=== PATIENT | female | born 1930 | race Caucasian/White ===

== ENCOUNTER 2016-12-25 16:07 | Inpatient (IN) | payer MEDICARE, OTHER ==
[~2016-12-25] VITALS: Ht 160 cm; Wt 68.0 kg
[~2016-12-25 16:07] MED LIST: ACETAMINOPHEN-1 EACH ORAL; ACETAMINOPHEN325 M1 ORAL; AMIODARONE HCL400 M1 ORAL; AMLODIPINE BES2.5 MG ORAL; ANTIVERT12.5 MG ORAL; ASPIRIN EC81 MG ORAL; Alprazolam PO; BACITRACIN15 GM TOPIC; CLONIDINE HCL0.1 MG PO; COUMADIN2 MG ORAL; CYCLOBENZAPRINE10 MG ORAL; DOCUSATE SODIU100 MG ORAL; LASIX40 MG ORAL; LEXAPRO10 MG ORAL; LISINOPRIL20 MG ORAL; LISINOPRIL40 MG ORAL; METOPROLOL SUCC50 MG ORAL; MONTELUKAST SOD10 MG ORAL; NORVASC5 MG ORAL; PEPCID20 MG ORAL; POTASSIUM CHLO10 ME3 ORAL; PRAVACHOL80 MG ORAL; PREDNISONE20 MG ORAL; PRESERVISION A1 EACH PO; PROTONIX40 MG ORAL; RANITIDINE HCL150 MG ORAL; SYSTANE 0.3-0.1 EAC1 OP; TRAMADOL HCL50 MG ORAL; TYLENOL325 MG ORAL; Warfarin Sod PO; XANAX0.25 MG ORAL; ZANTAC150 MG ORAL; diclofenac TOPIC
[2016-12-25 16:12] VITALS: BP 160/38
--- NOTE | 2016-12-25 16:21 | Emergency Room Report ---
History of Present Illness General Chief Complaint: Upper Respiratory Illness Source: Patient, EMS Present Illness HPI Patient reports a fall approximately 6 weeks ago with a fracture of the left upper arm Says that she has had increased problems with her CHF She had recent thoracentesis at [facility] She was in rehabilitation And was home for the last few days now the patient again is having increased shortness of breath Increased cough Denies any recent travel denies any vomiting or diarrhea Patient has increased swelling in both legs Allergies: Coded Allergies: No Known Allergies (Unverified , 04/27/14) Patient History Past Medical History: see triage record Pertinent Family History: none Reviewed Nursing Documentation: PMH: Agreed, PSxH: Agreed Nursing Documentation-PMH Past Medical History: No History, Except For Hx Cardiac Problems: Yes - CHF Hx Hypertension: Yes Hx Pacemaker: Yes - Left chest Hx Cancer: No Hx Gastrointestinal Problems: Yes - gerd Hx Neurological Problems: Yes - vertigo Hx Vertigo: Yes Review of Systems All Other Systems: negative except mentioned in HPI Physical Exam Vital Signs Date Time Temp Pulse Resp B/P (MAP) Pulse Ox O2 Delivery O2 Flow Rate FiO2 12/25/16 16:02 62 20 162/73 96 Room Air Sp02 EP Interpretation: reviewed, normal General Appearance: well appearing, no apparent distress Head: normocephalic, atraumatic Eyes: bilateral eye PERRL, bilateral eye EOMI ENT: hearing grossly normal, normal pharynx, TMs + canals normal, uvula midline Neck: full range of motion, supple, no meningismus, no bony tend Respiratory: no rhonchi, no respiratory distress, no retraction, no accessory muscle use, crackles - in both lower lobes Cardiovascular #1: normal peripheral pulses, regular rate, rhythm, no gallop, no JVD, systolic murmur - Diffuse holosystolic murmur Gastrointestinal: normal bowel sounds, non tender, soft, no mass, no organomegaly, non-distended, no guarding, no hernia, no pulsatile mass, no rebound Genitourinary: no CVA tenderness Musculoskeletal: normal inspection Neurologic: oriented x3, responsive, flour inspector III-XII nml as tested, motor strength/ tone normal, sensory intact Psychiatric: mood/affect normal Skin: palpation normal, other - Dependent edema in both lower extremities Lymphatic: normal inspection, no adenopathy Medical Decision Making Diagnostic Impression: Primary Impression: CHF (congestive heart failure) Additional Impressions: SOB (shortness of breath) Pleural effusion ER Course Patient is a fairly complex patient with multiple differential to consideration including but not limited to cardiac cardiopulmonary and vascular emergencies Patient's chest x-ray shows significant congestion and effusion Patient has done better on simple oxygen has not required positive pressure respirations at this time Blood work also confirmed these findings with regards to congestive heart failure patient was provided with diuretics and requires admission for further inpatient care Labs Test 12/25/16 16:25 12/25/16 16:30 12/26/16 07:10 12/26/16 16:47 White Blood Count 10.3 K/UL (4.8-10.8) 7.9 K/UL (4.8-10.8) Red Blood Count 3.57 M/UL (4.20-5.40) 3.35 M/UL (4.20-5.40) Hemoglobin 9.7 G/DL (12.0-16.0) 8.5 G/DL (12.0-16.0) Hematocrit 30.7 % (37.0-47.0) 28.4 % (37.0-47.0) Mean Corpuscular Volume 86 FL (80-99) 85 FL (80-99) Mean Corpuscular Hemoglobin 27.1 PG (27.0-31.0) 25.4 PG (27.0-31.0) Mean Corpuscular Hemoglobin Concent 31.5 G/DL (32.0-36.0) 29.9 G/DL (32.0-36.0) Red Cell Distribution Width 18.6 % (11.6-14.8) 18.4 % (11.6-14.8) Platelet Count 263 K/UL (150-450) 240 K/UL (150-450) Mean Platelet Volume 5.8 FL (6.5-10.1) 5.6 FL (6.5-10.1) Neutrophils (%) (Auto) 76.1 % (45.0-75.0) 72.4 % (45.0-75.0) Lymphocytes (%) (Auto) 13.4 % (20.0-45.0) 13.3 % (20.0-45.0) Monocytes (%) (Auto) 9.4 % (1.0-10.0) 12.7 % (1.0-10.0) Eosinophils (%) (Auto) 0.4 % (0.0-3.0) 0.9 % (0.0-3.0) Basophils (%) (Auto) 0.7 % (0.0-2.0) 0.7 % (0.0-2.0) Prothrombin Time 54.2 SEC (9.30-11.50) 43.9 SEC (9.30-11.50) Prothromb Time International Ratio 5.1 (0.9-1.1) 4.1 (0.9-1.1) Activated Partial Thromboplast Time 43 SEC (23-33) Sodium Level 147 mEQ/L (135-145) 148 mEQ/L (135-145) Potassium Level 4.0 mEQ/L (3.4-4.9) 4.0 mEQ/L (3.4-4.9) Chloride Level 101 mEQ/L (98-107) 101 mEQ/L (98-107) Carbon Dioxide Level 35 mEQ/L (20-30) 38 mEQ/L (20-30) Anion Gap 11 (5-15) 9 (5-15) Blood Urea Nitrogen 20 mg/dL (7-23) 18 mg/dL (7-23) Creatinine 1.1 mg/dL (0.5-0.9) 0.9 mg/dL (0.5-0.9) Estimat Glomerular Filtration Rate mL/min (>60) mL/min (>60) Glucose Level 117 mg/dL (74-106) 86 mg/dL (74-106) Calcium Level 9.2 mg/dL (8.6-10.2) 8.7 mg/dL (8.6-10.2) Total Bilirubin 0.5 mg/dL (0.0-1.2) Aspartate Amino Transf (AST/SGOT) 19 U/L (5-40) Alanine Aminotransferase (ALT/SGPT) 8 U/L (3-33) Alkaline Phosphatase 161 U/L (35-104) Total Creatine Kinase 29 U/L (26-140) Creatine Kinase MB 2.4 ng/mL (< 3.8) Creatine Kinase MB Relative Index 8.2 Pro-B-Type Natriuretic Peptide 4704 pg/mL (0-450) Total Protein 7.3 g/dL (6.6-8.7) Albumin 4.2 g/dL (3.5-5.2) 3.4 g/dL (3.5-5.2) Globulin 3.1 g/dL Albumin/Globulin Ratio 1.3 (1.0-2.7) Lipase 21 U/L (< 60) Troponin I < 0.30 ng/mL (<=0.30) < 0.30 ng/mL (<=0.30) Phosphorus Level 4.5 mg/dL (2.5-4.8) Test 12/27/16 06:25 White Blood Count 9.8 K/UL (4.8-10.8) Red Blood Count 3.34 M/UL (4.20-5.40) Hemoglobin 8.4 G/DL (12.0-16.0) Hematocrit 28.2 % (37.0-47.0) Mean Corpuscular Volume 85 FL (80-99) Mean Corpuscular Hemoglobin 25.0 PG (27.0-31.0) Mean Corpuscular Hemoglobin Concent 29.6 G/DL (32.0-36.0) Red Cell Distribution Width 18.4 % (11.6-14.8) Platelet Count 239 K/UL (150-450) Mean Platelet Volume 5.4 FL (6.5-10.1) Neutrophils (%) (Auto) 78.7 % (45.0-75.0) Lymphocytes (%) (Auto) 9.7 % (20.0-45.0) Monocytes (%) (Auto) 11.3 % (1.0-10.0) Eosinophils (%) (Auto) 0.0 % (0.0-3.0) Basophils (%) (Auto) 0.4 % (0.0-2.0) EKG Diagnostic Results Rate: normal Rhythm: other - paced ST Segments: no acute changes Rhythm Strip Diag. Results EP Interpretation: yes Rate: 60 Rhythm: no PVC's, no ectopy, other - paced Chest X-Ray Diagnostic Results Chest X-Ray Diagnostic Results : Chest X-Ray Ordered: Yes # of Views/Limited/Complete: 1 View Indication: Chest Pain EP Interpretation: Yes Interpretation: no pneumothorax, other - Cardiomegaly, pulmonary congestion , bilateral effusions, no acute bony abnormalities Impression: Other - bilateral effusions, pulmonary congestion Electronically Signed by: Kelly Gaitan DO Last Vital Signs Date Time Temp Pulse Resp B/P (MAP) Pulse Ox O2 Delivery O2 Flow Rate FiO2 12/25/16 16:02 62 20 162/73 96 Room Air Status: improved Disposition: ADMITTED INPATIENT Condition: Serious KELLY GAITAN D.O. Dec 25, 2016 16:21
--- NOTE | 2016-12-25 16:47 | Diagnostic Imaging Report ---
Indication: Dyspnea Comparison: July 02, 1999 and A single view chest radiograph was obtained. Findings: Moderate to severe pulmonary edema demonstrated. Suggestion of bilateral pleural effusions. Heart is enlarged. Sternotomy and pacemaker are again noted. Impression: Pulmonary edema
[2016-12-25 17:08] LABS: BASOPHILS % (AUTO) 0.7 % (0.0-2.0); EOSINOPHILS % (AUTO) 0.4 % (0.0-3.0); LYMPHOCYTES % (AUTO) 13.4 % (20.0-45.0); MEAN CORPUSCULAR HEMOGLOBIN 27.1 PG (27.0-31.0); MEAN CORPUSCULAR HGB CONC 31.5 G/DL (32.0-36.0); MEAN CORPUSCULAR VOLUME 86 FL (80-99); MEAN PLATELET VOLUME 5.8 FL (6.5-10.1); MONOCYTES % (AUTO) 9.4 % (1.0-10.0); NEUTROPHILS % (AUTO) 76.1 % (45.0-75.0); PLATELET COUNT 263 K/UL (150-450); RED BLOOD COUNT 3.57 M/UL (4.20-5.40); RED CELL DISTRIBUTION WIDTH 18.6 % (11.6-14.8); WHITE BLOOD COUNT 10.3 K/UL (4.8-10.8)
[2016-12-25 17:35] LABS: TROPONIN I < 0.30 ng/mL (<=0.30)
[2016-12-25] MEDS ORDERED: MULTIVITAMINS1 EAC2 ORAL (17:36)
[2016-12-25] MEDS ORDERED: ACETAMINOPHEN-1 EAC1 ORAL (17:36)
[2016-12-25] MEDS ORDERED: MAGNESIUM400 M1 PO (17:36)
[2016-12-25] MEDS ORDERED: PREDNISONE20 MG ORAL (17:36)
[2016-12-25 17:37] LABS: PROTHROMBIN TIME 54.2 SEC (9.30-11.50)
[2016-12-25 17:38] LABS: ALANINE AMINOTRANSFERASE 8 U/L (3-33); ALBUMIN/GLOBULIN RATIO 1.3 (1.0-2.7); ANION GAP 11 (5-15); ASPARTATE AMINO TRANSFERASE 19 U/L (5-40); CALCIUM 9.2 mg/dL (8.6-10.2); CARBON DIOXIDE 35 mEQ/L (20-30); CHLORIDE 101 mEQ/L (98-107); CREATININE 1.1 mg/dL (0.5-0.9); HEMOLYSIS 0; LIPASE 21 U/L (< 60); SODIUM 147 mEQ/L (135-145); TOTAL PROTEIN 7.3 g/dL (6.6-8.7)
[2016-12-25 17:45] LABS: INR 5.1 (0.9-1.1)
[2016-12-25 17:48] LABS: CKMB 2.4 ng/mL (< 3.8)
[2016-12-25 18:30] VITALS: BP 157/61
[2016-12-25 20:00] VITALS: BP 144/56
[2016-12-25] MEDS ORDERED: Miralax 17gm pkt ORAL PRN (21:30)
[2016-12-25] MEDS ORDERED: Albuterol/Ipratropium 3ml neb HHN PRN (21:30)
[2016-12-26] VITALS (7 sets, daily range): BP systolic 108–150; BP diastolic 48–76
[2016-12-26 08:18] LABS: BASOPHILS % (AUTO) 0.7 % (0.0-2.0); EOSINOPHILS % (AUTO) 0.9 % (0.0-3.0); LYMPHOCYTES % (AUTO) 13.3 % (20.0-45.0); MEAN CORPUSCULAR HEMOGLOBIN 25.4 PG (27.0-31.0); MEAN CORPUSCULAR HGB CONC 29.9 G/DL (32.0-36.0); MEAN CORPUSCULAR VOLUME 85 FL (80-99); MEAN PLATELET VOLUME 5.6 FL (6.5-10.1); MONOCYTES % (AUTO) 12.7 % (1.0-10.0); NEUTROPHILS % (AUTO) 72.4 % (45.0-75.0); PLATELET COUNT 240 K/UL (150-450); RED BLOOD COUNT 3.35 M/UL (4.20-5.40); RED CELL DISTRIBUTION WIDTH 18.4 % (11.6-14.8); WHITE BLOOD COUNT 7.9 K/UL (4.8-10.8)
[2016-12-26 08:26] LABS: TROPONIN I < 0.30 ng/mL (<=0.30)
[2016-12-26 08:35] LABS: ANION GAP 9 (5-15); CALCIUM 8.7 mg/dL (8.6-10.2); CARBON DIOXIDE 38 mEQ/L (20-30); CHLORIDE 101 mEQ/L (98-107); CREATININE 0.9 mg/dL (0.5-0.9); HEMOLYSIS 0; PHOSPHORUS 4.5 mg/dL (2.5-4.8); SODIUM 148 mEQ/L (135-145)
[2016-12-26] MEDS: Heparin 5000 units/ml inj SUBQ SCH ×3 (09:00→20:14)
[2016-12-26] MEDS: Lisinopril 20mg tab ORAL SCH ×2 (09:34→18:05)
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
--- NOTE | 2016-12-26 11:23 | History & Physical ---
History and Physical History & Physicial Dictated for Int med-Dr Haines no. [id number]. LEWIS ROBERTSON Dec 26, 2016 11:23
[2016-12-26] MEDS ORDERED: Albuterol/Ipratropium 3ml neb HHN PRN (11:30)
--- NOTE | 2016-12-26 12:04 | Diagnostic Imaging Report ---
Indication: DYSPNEA chest pain Technique: One view of the chest Comparison: 12/25/2016 Findings: Patient is rotated to the right. There are bilateral pleural effusions which appear unchanged. Pulmonary interstitial and alveolar edema likewise unchanged. Left chest pacemaker, median sternotomy sutures, spinal hardware are again demonstrated. Impression: Unchanged, over one day, findings as above.
[2016-12-26] MEDS: Albuterol ud Inhalation HHN SCH ×2 (12:39→19:40)
--- NOTE | 2016-12-26 12:46 | Consultation ---
History of Present Illness General Date patient seen: Dec 26, 2016 Chief Complaint: Upper Respiratory Illness Referring physician: dr Haines Reason for Consultation: dyspnea Present Illness HPI 86 year old female with hx of CHF, pace maker, pleural effusion with recurrent thoracentesis, with [place] [facility] [place] with CC of increasing SOB. She had recent thoracentesis at [facility]. She was in rehabilitation afterwards. And was home for the last few days now the patient again is having increased shortness of breath. She was diagnosed to have acute worsening of pulmonary edema and pleural effusion. she is admitted to telemetry for further evaluation. Allergies: Coded Allergies: No Known Allergies (Unverified , 04/27/14) Medication History Scheduled Amlodipine Besylate (Norvasc), 5 MG ORAL DAILY, (Reported) Docusate Sodium* (Docusate Sodium*), 100 MG ORAL DAILY, (Reported) Escitalopram Oxalate* (Lexapro*), 10 MG ORAL DAILY, (Reported) Furosemide* (Lasix*), 40 MG ORAL BID Lisinopril* (Lisinopril*), 40 MG ORAL BID, (Reported) Metoprolol Succinate* (Metoprolol Succinate*), 50 MG ORAL DAILY, (Reported) Multivitamins* (Multivitamins*), 1 TAB ORAL DAILY, (Reported) Pantoprazole* (Protonix*), 40 MG ORAL DAILY, (Reported) Potassium Chloride (Potassium Chloride), 20 MEQ ORAL DAILY Pravastatin Sod (Pravachol), 80 MG ORAL BEDTIME, (Reported) Prednisone* (Prednisone*), 20 MG ORAL DAILY, (Reported) [Warfarin Sod*], 3 MG PO DAILY, (Reported) Scheduled PRN Acetaminophen With Codeine (T#3) (Tylenol #3 Tab*), 1 TAB ORAL Q4H PRN for For Pain, (Reported) Clonidine Hcl (Clonidine Hcl), 0.1 MG PO for For High Blood Pressure, (Reported) [Alprazolam*], 0.25 MG PO DAILY PRN for For Anxiety, (Reported) Miscellaneous Medications Magnesium Oxide (Magnesium), 400 MG PO, (Reported) Discontinued Medications Acetaminophen (Tylenol), 500 MG ORAL Q6H PRN for Fever/Headache/Mild Pain, ( Reported) Discontinued Reason: Pt stopped taking med Acetaminophen With Codeine #2 Tablet (Acetaminophen With Codeine #2 Tablet), 1 TAB ORAL for For Cough, (Reported) Discontinued Reason: Pt stopped taking med Famotidine (Pepcid), 20 MG ORAL BEDTIME Discontinued Reason: Pt stopped taking med Prednisone* (Prednisone*), 40 MG ORAL DAILY Discontinued Reason: Medication dose changed Tramadol Hcl* (Ultram*), 100 MG ORAL for For Pain, (Reported) Discontinued Reason: Pt stopped taking med Patient History Healthcare decision maker Resuscitation status Full Code Advanced Directive on File Past Medical/Surgical History Past Medical/Surgical History: (1) Pneumothorax, acute (2) Major depression (3) Pacemaker (4) CHF (congestive heart failure) Review of Systems Respiratory: Reports: shortness of breath, [place] All Other Systems: negative except mentioned in HPI Physical Exam General Appearance: WD/WN Lines, tubes and drains: peripheral HEENT: normocephalic, atraumatic Neck: non-tender, normal alignment Respiratory/Chest: chest wall non-tender, lungs clear, rhonchi - bilaterally, rhonchi - right Breasts: no masses Cardiovascular/Chest: normal peripheral pulses, normal rate Abdomen: normal bowel sounds Last 24 Hour Vital Signs Date Time Temp Pulse Resp B/P (MAP) Pulse Ox O2 Delivery O2 Flow Rate FiO2 12/26/16 09:34 127/76 12/26/16 09:33 66 127/76 12/26/16 08:41 97.3 60 20 127/76 97 Nasal Cannula 2.0 12/26/16 04:00 97.0 60 16 136/57 98 Nasal Cannula 2.0 12/26/16 04:00 60 12/26/16 00:00 60 12/26/16 00:00 97.0 60 16 113/48 96 Nasal Cannula 2.0 12/25/16 20:00 60 12/25/16 20:00 97.0 60 16 144/56 96 Nasal Cannula 2.0 12/25/16 18:30 97.0 60 21 157/61 94 Nasal Cannula 2.0 12/25/16 16:12 60 23 Nasal Cannula 2.0 12/25/16 16:12 97.5 60 23 160/38 98 Nasal Cannula 2.0 12/25/16 16:02 62 20 162/73 96 Room Air Laboratory Tests Test 12/25/16 16:25 12/25/16 16:30 12/26/16 07:10 White Blood Count 10.3 K/UL (4.8-10.8) 7.9 K/UL (4.8-10.8) Red Blood Count 3.57 M/UL (4.20-5.40) L 3.35 M/UL (4.20-5.40) L Hemoglobin 9.7 G/DL (12.0-16.0) L 8.5 G/DL (12.0-16.0) L Hematocrit 30.7 % (37.0-47.0) L 28.4 % (37.0-47.0) L Mean Corpuscular Volume 86 FL (80-99) 85 FL (80-99) Mean Corpuscular Hemoglobin 27.1 PG (27.0-31.0) 25.4 PG (27.0-31.0) L Mean Corpuscular Hemoglobin Concent 31.5 G/DL (32.0-36.0) L 29.9 G/DL (32.0-36.0) L Red Cell Distribution Width 18.6 % (11.6-14.8) H 18.4 % (11.6-14.8) H Platelet Count 263 K/UL (150-450) 240 K/UL (150-450) Mean Platelet Volume 5.8 FL (6.5-10.1) L 5.6 FL (6.5-10.1) L Neutrophils (%) (Auto) 76.1 % (45.0-75.0) H 72.4 % (45.0-75.0) Lymphocytes (%) (Auto) 13.4 % (20.0-45.0) L 13.3 % (20.0-45.0) L Monocytes (%) (Auto) 9.4 % (1.0-10.0) 12.7 % (1.0-10.0) H Eosinophils (%) (Auto) 0.4 % (0.0-3.0) 0.9 % (0.0-3.0) Basophils (%) (Auto) 0.7 % (0.0-2.0) 0.7 % (0.0-2.0) Prothrombin Time 54.2 SEC (9.30-11.50) H Prothromb Time International Ratio 5.1 (0.9-1.1) *H Activated Partial Thromboplast Time 43 SEC (23-33) H Sodium Level 147 mEQ/L (135-145) H 148 mEQ/L (135-145) H Potassium Level 4.0 mEQ/L (3.4-4.9) 4.0 mEQ/L (3.4-4.9) Chloride Level 101 mEQ/L (98-107) 101 mEQ/L (98-107) Carbon Dioxide Level 35 mEQ/L (20-30) H 38 mEQ/L (20-30) H Anion Gap 11 (5-15) 9 (5-15) Blood Urea Nitrogen 20 mg/dL (7-23) 18 mg/dL (7-23) Creatinine 1.1 mg/dL (0.5-0.9) H 0.9 mg/dL (0.5-0.9) Estimat Glomerular Filtration Rate mL/min (>60) mL/min (>60) Glucose Level 117 mg/dL (74-106) H 86 mg/dL (74-106) Calcium Level 9.2 mg/dL (8.6-10.2) 8.7 mg/dL (8.6-10.2) Total Bilirubin 0.5 mg/dL (0.0-1.2) Aspartate Amino Transf (AST/SGOT) 19 U/L (5-40) Alanine Aminotransferase (ALT/SGPT) 8 U/L (3-33) Alkaline Phosphatase 161 U/L (35-104) H Total Creatine Kinase 29 U/L (26-140) Creatine Kinase MB 2.4 ng/mL (< 3.8) Creatine Kinase MB Relative Index 8.2 Pro-B-Type Natriuretic Peptide 4704 pg/mL (0-450) H Total Protein 7.3 g/dL (6.6-8.7) Albumin 4.2 g/dL (3.5-5.2) 3.4 g/dL (3.5-5.2) L Globulin 3.1 g/dL Albumin/Globulin Ratio 1.3 (1.0-2.7) Lipase 21 U/L (< 60) Troponin I < 0.30 ng/mL (<=0.30) < 0.30 ng/mL (<=0.30) Phosphorus Level 4.5 mg/dL (2.5-4.8) Height (Feet): 5 Height (Inches): 3.00 Weight (Pounds): 150 Medications Current Medications Medications (Trade) Dose Ordered Sig/Fredy Route PRN Reason Start Time Stop Time Status Last Admin Dose Admin Acetaminophen (Tylenol) 650 mg Q4H PRN ORAL Fever 12/25/16 21:30 01/24/17 21:29 Albuterol Sulfate (Proventil) 2.5 mg TIDRT HHN 12/26/16 13:00 12/31/16 12:59 Albuterol/ Ipratropium (DuoNeb 0.5-3(2.5)mg/3ml) 3 ml Q4H PRN HHN Shortness of Breath 12/26/16 11:30 12/30/16 21:29 Amlodipine Besylate (Norvasc) 5 mg DAILY ORAL 12/26/16 09:00 01/25/17 08:59 12/26/16 09:33 Clonidine HCl (Catapres) 0.1 mg DAILY PRN ORAL For High Blood Pressure 12/25/16 21:30 01/24/17 21:29 Clotrimazole (Lotrimin) 1 applic EVERY 12 HOURS TOPIC 12/26/16 21:00 01/25/17 20:59 Dextrose (Dextrose 50%) STAT PRN IV Hypoglycemia 12/25/16 21:30 01/24/17 21:29 Escitalopram Oxalate (Lexapro) 10 mg DAILY ORAL 12/26/16 09:00 01/25/17 08:59 12/26/16 09:34 Furosemide (Lasix) 40 mg EVERY 8 HOURS IV 12/25/16 22:00 01/24/17 21:59 12/26/16 05:25 Heparin Sodium (Porcine) (Heparin 5000 units/ml) 5,000 units EVERY 12 HOURS SUBQ 12/26/16 09:00 01/25/17 08:59 12/26/16 09:40 Lisinopril (Prinivil) 40 mg BID ORAL 12/26/16 09:00 01/25/17 08:59 12/26/16 09:34 Ondansetron HCl (Zofran) 4 mg Q6H PRN IVP Nausea & Vomiting 12/25/16 21:30 01/24/17 21:29 Pantoprazole (Protonix) 40 mg DAILY ORAL 12/26/16 09:00 01/25/17 08:59 12/26/16 09:33 Polyethylene Glycol (Miralax) 17 gm DAILYPRN PRN ORAL Constipation 12/25/16 21:30 01/24/17 21:29 Prednisone (predniSONE) 20 mg DAILY ORAL 12/26/16 09:00 01/25/17 08:59 12/26/16 09:33 Temazepam (Restoril) 15 mg HSPRN PRN ORAL Insomnia 12/25/16 21:30 01/01/17 21:29 Assessment/Plan Problem List: (1) CHF (congestive heart failure) ICD Codes: I50.9 - Heart failure, unspecified SNOMED: 90435442 (2) Pleural effusion ICD Codes: J90 - Pleural effusion, not elsewhere classified SNOMED: 04532437 (3) Major depression ICD Codes: F32.9 - Major depressive disorder, single episode, unspecified SNOMED: 20970534, 836564231 (4) Pacemaker ICD Codes: Z95.0 - Presence of cardiac pacemaker SNOMED: 400989535, 663691361 Assessment/Plan diuretics echo avoid thoracentesis, b/o hx of pneumothorax and f/u intake and output check bun/creatinine HUBERT MENDEZ Dec 26, 2016 12:46
--- NOTE | 2016-12-26 15:13 | Cardiology Report ---
APPROVED REPORT EXAM: Two-dimensional and M-mode echocardiogram with Doppler and color Doppler. INDICATION Left ventricular function M-Mode DIMENSIONS IVSd1.4 (0.7-1.1cm)Left Atrium (MM)4.7 (1.6-4.0cm) LVDd4.1 (3.5-5.6cm)Aortic Root2.2 (2.0-3.7cm) PWd1.0 (0.7-1.1cm)Aortic Cusp Exc.1.6 (1.5-2.0cm) LVDs2.1 (2.5-4.0cm) PWs1.8 cm Normal left ventricular chamber size, systolic function and wall motion. Left ventricular ejection fraction estimated to be 55 %. Mild left ventricular hypertrophy. Large pleural effusion. Mild left atrial enlargement. Right cardiac chamber sizes are within normal limits. Mild focal aortic valve sclerosis with adequate cusp excursion. Heavily thickened mitral valve leaflets with minimal excursion. Heavy mitral annulus and aortic root calcification. Normal pulmonic valve structure. Normal tricuspid valve structure. A color flow and spectral Doppler study was performed and revealed: Mild to moderate aortic insufficiency. Moderate to severe mitral regurgitation. Mitral P1/2 time of 74 m/s is compatible with a mitral valve area of 1.4 cm2 Peak mitral valve diastolic gradient of 19 mmHg and a mean gradient of 5 mmHg. Moderate mitral stenosis. Mitral inflow indicate increased left atrial pressure, suggestive restrictive pattern (Grade III). Moderate tricuspid regurgitation. Tricuspid systolic velocities suggests peak right ventricular systolic pressure of 101 mmHg, consistent with severe pulmonary hypertension. Moderate pulmonic regurgitation present.
--- NOTE | 2016-12-26 17:06 | Cardiac Electrophysiology PN ---
Subjective Subjective [id number] Dictated Objective Last 24 Hour Vital Signs Date Time Temp Pulse Resp B/P (MAP) Pulse Ox O2 Delivery O2 Flow Rate FiO2 12/26/16 15:41 97.9 61 18 133/52 96 Nasal Cannula 2.0 12/26/16 12:50 98.1 60 18 133/56 96 Nasal Cannula 2.0 12/26/16 12:35 61 18 100 Nasal Cannula 2.0 28 12/26/16 12:30 60 18 100 Nasal Cannula 2.0 28 12/26/16 12:30 60 18 Nasal Cannula 2.0 28 12/26/16 12:00 60 12/26/16 09:34 127/76 12/26/16 09:33 66 127/76 12/26/16 08:41 97.3 60 20 127/76 97 Nasal Cannula 2.0 12/26/16 08:00 60 12/26/16 04:00 97.0 60 16 136/57 98 Nasal Cannula 2.0 12/26/16 04:00 60 12/26/16 00:00 60 12/26/16 00:00 97.0 60 16 113/48 96 Nasal Cannula 2.0 12/25/16 20:00 60 12/25/16 20:00 97.0 60 16 144/56 96 Nasal Cannula 2.0 12/25/16 18:30 97.0 60 21 157/61 94 Nasal Cannula 2.0 Laboratory Tests Test 12/26/16 07:10 12/26/16 16:47 White Blood Count 7.9 K/UL (4.8-10.8) Red Blood Count 3.35 M/UL (4.20-5.40) L Hemoglobin 8.5 G/DL (12.0-16.0) L Hematocrit 28.4 % (37.0-47.0) L Mean Corpuscular Volume 85 FL (80-99) Mean Corpuscular Hemoglobin 25.4 PG (27.0-31.0) L Mean Corpuscular Hemoglobin Concent 29.9 G/DL (32.0-36.0) L Red Cell Distribution Width 18.4 % (11.6-14.8) H Platelet Count 240 K/UL (150-450) Mean Platelet Volume 5.6 FL (6.5-10.1) L Neutrophils (%) (Auto) 72.4 % (45.0-75.0) Lymphocytes (%) (Auto) 13.3 % (20.0-45.0) L Monocytes (%) (Auto) 12.7 % (1.0-10.0) H Eosinophils (%) (Auto) 0.9 % (0.0-3.0) Basophils (%) (Auto) 0.7 % (0.0-2.0) Sodium Level 148 mEQ/L (135-145) H Potassium Level 4.0 mEQ/L (3.4-4.9) Chloride Level 101 mEQ/L (98-107) Carbon Dioxide Level 38 mEQ/L (20-30) H Anion Gap 9 (5-15) Blood Urea Nitrogen 18 mg/dL (7-23) Creatinine 0.9 mg/dL (0.5-0.9) Estimat Glomerular Filtration Rate mL/min (>60) Glucose Level 86 mg/dL (74-106) Calcium Level 8.7 mg/dL (8.6-10.2) Phosphorus Level 4.5 mg/dL (2.5-4.8) Troponin I < 0.30 ng/mL (<=0.30) Albumin 3.4 g/dL (3.5-5.2) L Prothrombin Time Pending Prothromb Time International Ratio Pending FRANCISCO BANERJEE Dec 26, 2016 17:06
[2016-12-26 17:22] LABS: INR 4.1 (0.9-1.1); PROTHROMBIN TIME 43.9 SEC (9.30-11.50)
--- NOTE | 2016-12-26 22:15 | History and Physical Report ---
DATE OF ADMISSION: 12/25/2016 Chief Complaint: The patient is an 86-year-old Greenlandic female, who presents with chief complaint of shortness of breath. History Of Present Illness: The patient was admitted to [facility] in May 2016. Please see history and physical and discharge summary dictated at that time. The patient had congestive heart failure and pleural effusions at that time. The patient has had thoracentesis during that hospitalization. According to the patient's caregiver, who is at the bedside, the patient began to experience shortness of breath yesterday, 12/25/2016. The patient was unable to sleep lying down. The patient was sleeping sitting up. The caregiver denies fevers or chills. The patient denies cough. The patient did have some wheezing. The patient presented to [facility]. The patient was found to have hypoxia. The patient was admitted for shortness of breath to rule out congestive heart failure. PAST MEDICAL HISTORY: Significant for: 1. Hypertension. 2. Congestive heart failure. 3. Pleural effusion as above. PAST SURGICAL HISTORY: Significant for: 1. Mitral valve replacement. 2. Pacemaker implantation. CURRENT MEDICATIONS: 1. Norvasc 5 mg one tablet p.o. daily. 2. Clonidine 0.1 mg one tablet p.o. p.r.n. 3. Lexapro 10 mg one tablet p.o. daily. 4. Lasix 40 mg one tablet p.o. twice daily. 5. Lisinopril 40 mg one tablet p.o. twice daily. 6. Magnesium oxide 400 mg one tablet p.o. daily. 7. Metoprolol 50 mg one tablet p.o. daily. 8. Protonix 40 mg one tablet p.o. daily. 9. Potassium chloride 20 mEq one tablet p.o. daily. 10. Pravachol 80 mg one tablet p.o. nightly. 11. Prednisone 20 mg one tablet p.o. daily. 12. Xanax 0.25 mg one tablet p.o. q.8 hours. 13. Coumadin 3 mg one tablet p.o. daily. ALLERGIES: No known drug allergies. Social History: The patient is a and lives with a 24-hour caregiver. The patient denies tobacco or alcohol use. Review Of Systems: Constitutional: The patient denies weight loss or weight gain. The patient denies fevers or chills. HEENT: The patient denies ear or throat pain. The patient denies headache. Cardiovascular: The patient denies palpitations or chest pain. Chest: The patient complains of wheeze as above. The patient complains of shortness of breath as above. Abdominal: The patient denies nausea, vomiting, diarrhea, or constipation. Genitourinary: The patient denies dysuria or increased frequency of urination. Neuromuscular: The patient denies seizures or generalized weakness. PHYSICAL EXAMINATION: Vital Signs: Temperature 97.0, respirations 16, pulse 60, blood pressure 144/56, and oxygen saturation 96% on 2 L per nasal cannula. General: The patient is a thin-appearing [place] female in no apparent distress. The patient is sitting upright in the bed. HEENT: Eyes, pupils are equal and responsive to light and accommodation. Extraocular movements are intact. NECK: Supple. No lymphadenopathy. Chest: Lungs are clear. Crackles heard two-thirds of the way up on the left lung field and one-third of the way up on the right lung field. There are wheezes bilaterally. Otherwise, lungs are clear to auscultation bilaterally. Abdomen: Soft, nontender, and nondistended. Positive bowel sounds. No evidence of hepatosplenomegaly. Currently, no rebound or guarding noted. EXTREMITIES: Negative for clubbing, cyanosis, or edema. RECTAL: Refused. GENITAL: Refused. Neurologic: Cranial nerves II through XII are grossly intact without focal deficits. Motor strength is 5/5 bilaterally. Deep tendon reflexes are 2+, plantar. Laboratory and Diagnostic Data: Laboratory studies, WBC 10.3, hemoglobin 9.7, hematocrit 30.7, and platelets 263,000. Sodium 147, potassium 4.0, chloride 101, CO2 35, BUN 20, creatinine 1.1, and glucose 127. BNP elevated at 4704. Troponin less than 0.3. Chest x-ray revealed pulmonary edema. ASSESSMENT: This is an 86-year-old Greenlandic female with: 1. Shortness of breath. 2. Congestive heart failure. 3. Hypertension. 4. Hypercholesteremia. 5. Depression. TREATMENT: 1. Shortness of breath/congestive heart failure. Cardiology consultation has been obtained by Dr. Herson Carrillo. The patient has been started empirically on intravenous Lasix. Pulmonary consultation has been obtained by Dr. Veras. The patient will require aggressive diuresis. An echocardiogram is pending. Albuterol will be nebulized q.4 h. p.r.n. for wheezing. 2. Hypertension. Continue lisinopril and amlodipine as above. Clonidine will be used p.r.n. for systolic greater than 150 or diastolic greater than 100. 3. Hypercholesterolemia. Continue pravastatin as above. 4. Depression. Continue Lexapro as above. Aaron Quintero M.D. DR: HANSEL JOB#: [id number] CC:
[2016-12-27 04:12] VITALS: BP 129/63
[2016-12-27 07:09] LABS: BASOPHILS % (AUTO) 0.4 % (0.0-2.0); LYMPHOCYTES % (AUTO) 9.7 % (20.0-45.0); MEAN CORPUSCULAR HGB CONC 29.6 G/DL (32.0-36.0); MEAN CORPUSCULAR VOLUME 85 FL (80-99); MEAN PLATELET VOLUME 5.4 FL (6.5-10.1); MONOCYTES % (AUTO) 11.3 % (1.0-10.0); NEUTROPHILS % (AUTO) 78.7 % (45.0-75.0); PLATELET COUNT 239 K/UL (150-450); RED BLOOD COUNT 3.34 M/UL (4.20-5.40); RED CELL DISTRIBUTION WIDTH 18.4 % (11.6-14.8); WHITE BLOOD COUNT 9.8 K/UL (4.8-10.8)
[2016-12-27] MEDS: Albuterol ud Inhalation HHN SCH ×3 (07:42→19:54)
[2016-12-27 07:46] LABS: TROPONIN I < 0.30 ng/mL (<=0.30)
[2016-12-27 07:49] LABS: INR 3.8 (0.9-1.1); PROTHROMBIN TIME 40.5 SEC (9.30-11.50)
[2016-12-27 08:31] LABS: ALANINE AMINOTRANSFERASE 6 U/L (3-33); ALBUMIN/GLOBULIN RATIO 1.6 (1.0-2.7); ANION GAP 10 (5-15); ASPARTATE AMINO TRANSFERASE 13 U/L (5-40); CALCIUM 8.7 mg/dL (8.6-10.2); CARBON DIOXIDE 36 mEQ/L (20-30); CHLORIDE 97 mEQ/L (98-107); HEMOLYSIS 0; POTASSIUM 3.9 mEQ/L (3.4-4.9); SODIUM 143 mEQ/L (135-145); TOTAL PROTEIN 5.6 g/dL (6.6-8.7)
[2016-12-27 08:43] VITALS: BP 142/63
[2016-12-27 08:46] LABS: ANISOCYTOSIS 1+; BAND NEUTROPHILS % (MANUAL) 0 % (0-8); BASOPHILS % (MANUAL) 0 % (0-2); EOSINOPHILS % (MANUAL) 1 % (0-3); HYPOCHROMASIA 1+; LYMPHOCYTES % (MANUAL) 10 % (20-45); NEUTROPHILS % (MANUAL) 82 % (45-75); OVALOCYTES 1+; PLATELET ESTIMATE ADEQUATE; PLATELET MORPHOLOGY NORMAL; TARGET CELLS 1+; TOTAL CELLS COUNTED 100
[2016-12-27] MEDS: Metoprolol Succinate XL 50mg tab ORAL SCH ×2 (09:00→17:52)
--- NOTE | 2016-12-27 09:01 | Consultation ---
DATE OF CONSULTATION: 12/26/2016 CARDIAC ELECTROPHYSIOLOGY CONSULTATION REFERRING PHYSICIAN: Yandel Haines M.D. Reason For Consultation: Management of congestive heart failure, atrial fibrillation, status post pacemaker. History Of Present Illness: The patient is an 86-year-old [place] lady with history of hypertension, paroxysmal atrial fibrillation, and history of permanent pacemaker implantation, as well as history of congestive heart failure, who was recently at [facility] from 11/21/2016 through 11/27/2016 after she had a mechanical fall that resulted in trauma to the left side of the body. The patient ended up having multiple fractures including a left proximal femoral fracture, rib fracture, as well as left superior as well as inferior pubic ramus fracture. The patient subsequently stabilized and was discharged home. The patient also has history of pleural effusion, status post thoracentesis. The patient also has moderate mitral stenosis as well as aortic stenosis, status post aortic valve replacement. The patient presented to the hospital with increasing shortness of breath and lower extremity edema. The patient was brought in from rehabilitation center. The patient was admitted and a Cardiology consultation was obtained for further evaluation and management. PAST MEDICAL HISTORY: 1. Hypertension. 2. Paroxysmal atrial fibrillation. 3. Status post permanent pacemaker implantation. 4. Congestive heart failure, status post thoracentesis. 5. Status post aortic valve replacement prosthetic valve. 6. Status post mechanical fall with multiple fractures as mentioned above. Social History: Currently at rehabilitation. Does not smoke or drink alcohol. FAMILY HISTORY: Noncontributory. Review of Systems: Review of systems was performed and was negative other than what was mentioned in the history of present illness. PHYSICAL EXAMINATION: Vital Signs: Blood pressure is 132/52, pulse 64, respirations 18, and she is afebrile. HEAD AND NECK: Positive JVD. LUNGS: Decreased breath sounds bilaterally. CARDIOVASCULAR: Shows irregular S1 and S2 with no gallop. ABDOMEN: Soft. EXTREMITIES: There is 2+ pitting edema. Laboratory And Diagnostic Data: Her EKG showed baseline atrial fibrillation with ventricular paced rhythm at a rate of 60. Labs show a white count of 7.9, hemoglobin 8.5, hematocrit 28.4, and platelet count of 240,000. Sodium 148, potassium 4.0, BUN of 18, creatinine 0.9, and glucose 286. Troponin is negative. BNP is 4704. Her INR is 5.1. ASSESSMENT AND PLAN: 1. Shortness of breath, likely secondary to congestive heart failure. Continue Lasix 40 mg IV every eight hours. We will repeat electrolytes in the morning. An echocardiogram was performed that showed ejection fraction of 55% with mild tricuspid regurgitation and severe pulmonary hypertension with PA pressure of 101. 2. Status post aortic valve replacement as mentioned above. 3. Hypertension, on Norvasc 5 mg daily and lisinopril 40 mg b.i.d. as well as Lasix. 4. Chronic atrial fibrillation, rate is controlled. Off any atrioventricular mansi lyndon. Resume Coumadin, which is held in view of INR of more than 5. 5. Status post permanent pacemaker implantation. We will interrogate the pacemaker for finding the brand of the pacemaker. 6. Pleural effusion, status post recent thoracentesis at [facility]. 7. Hyperlipidemia, on Pravachol. It is also of note on medication list, the patient was on metoprolol 50 mg daily as well that would be resumed. Thank you very much, Dr. Haines, for allowing me to participate in the care of this patient. Please do not hesitate to contact me if you have any questions regarding my evaluation. Herson Carrillo M.D. DR: LILA JOB#: [id number] CC:
[2016-12-27 09:05] LABS: PATH BLOOD SMEAR/OMC SEND TO PATHOLOGIST
[2016-12-27 09:09] LABS: LACTATE DEHYDROGENASE 208 U/L (135-230)
[2016-12-27 09:10] LABS: HEMOLYSIS 0; IRON 18 ug/dL (37-145); TOTAL IRON BINDING CAPACITY 291 ug/dL (250-400)
[2016-12-27] MEDS: Heparin 5000 units/ml inj SUBQ SCH ×2 (09:12→20:32)
[2016-12-27] MEDS: Lisinopril 20mg tab ORAL SCH ×2 (09:17→17:52)
[2016-12-27 10:10] LABS: ERYTHROCYTE SEDIMENTATION RATE 48 MM/HR (0-42)
[2016-12-27 10:24] LABS: RETICULOCYTE COUNT 2.5 % (0.0-2.0)
--- NOTE | 2016-12-27 11:33 | Diagnostic Imaging Report ---
Indication: DYSPNEA Technique: One view of the chest Comparison: 12/26/2016 Findings: Bilateral right greater than left pleural effusions again demonstrated, probably unchanged. Hazy opacity of the right mid and lower lung, may reflect the pleural fluid, but may also reflect parenchymal consolidation. Left perihilar hazy and interstitial opacities are unchanged. Left chest pacemaker, spinal fusion hardware remain. Impression: Unchanged, over one day, findings as above.
[2016-12-27 11:54] VITALS: BP 124/50
--- NOTE | 2016-12-27 12:23 | Pulmonology Progress Note ---
Assessment/Plan Problems: (1) CHF (congestive heart failure) (2) Pleural effusion (3) Major depression (4) Pacemaker Assessment/Plan on lasix 40 q 8 hours check intake/ output avoid thoracentesis, because of previous pneumothorax. check electrolytes. Subjective ROS Limited/Unobtainable: No Constitutional: Reports: no symptoms HEENT: Repors: no symptoms Respiratory: Reports: no symptoms Cardiovascular: Reports: no symptoms Allergies: Coded Allergies: No Known Allergies (Unverified , 04/27/14) Objective Last 24 Hour Vital Signs Date Time Temp Pulse Resp B/P (MAP) Pulse Ox O2 Delivery O2 Flow Rate FiO2 12/27/16 11:54 97.5 60 18 124/50 98 Nasal Cannula 2.0 12/27/16 09:17 142/63 12/27/16 09:11 60 142/63 12/27/16 09:00 60 12/27/16 08:43 97.7 60 20 142/63 99 Nasal Cannula 2.0 12/27/16 08:00 60 12/27/16 07:50 65 18 100 Nasal Cannula 2.0 12/27/16 07:40 60 16 96 Nasal Cannula 2.0 28 12/27/16 04:12 97.2 60 20 129/63 99 Room Air 12/27/16 04:00 60 12/27/16 00:00 60 12/26/16 23:52 97.0 60 18 150/55 95 Nasal Cannula 12/26/16 20:00 60 12/26/16 19:52 62 16 100 Nasal Cannula 2.0 12/26/16 19:50 98.2 61 20 108/49 93 Nasal Cannula 12/26/16 19:42 61 18 98 Nasal Cannula 2.0 12/26/16 18:05 126/68 12/26/16 16:00 60 12/26/16 15:41 97.9 61 18 133/52 96 Nasal Cannula 2.0 12/26/16 12:50 98.1 60 18 133/56 96 Nasal Cannula 2.0 12/26/16 12:35 61 18 100 Nasal Cannula 2.0 28 12/26/16 12:30 60 18 100 Nasal Cannula 2.0 28 12/26/16 12:30 60 18 Nasal Cannula 2.0 28 Intake and Output 12/27/16 12/28/16 19:00 07:00 Intake Total 120 ml Balance 120 ml Intake Oral 120 ml # Voids 2 General Appearance: WD/WN HEENT: normocephalic, atraumatic Respiratory/Chest: chest wall non-tender, normal breath sounds Breasts: no masses Cardiovascular: normal rate, regularly irregular Abdomen: normal bowel sounds, soft, non tender Skin: no rash Neurologic/Psychiatric: manager target II-XII grossly normal Microbiology Date/Time Source Procedure Growth Status 12/25/16 16:25 Blood Blood Culture - Preliminary NO GROWTH AFTER 24 HOURS Resulted 12/25/16 16:25 Blood Blood Culture - Preliminary NO GROWTH AFTER 24 HOURS Resulted Laboratory Tests 12/26/16 16:47: Prothrombin Time 43.9H, Prothromb Time International Ratio 4.1H 12/27/16 06:25: Prothrombin Time 40.5H, Prothromb Time International Ratio 3.8H, White Blood Count 9.8, Red Blood Count 3.34L, Hemoglobin 8.4L, Hematocrit 28.2L, Mean Corpuscular Volume 85, Mean Corpuscular Hemoglobin 25.0L, Mean Corpuscular Hemoglobin Concent 29.6L, Red Cell Distribution Width 18.4H, Platelet Count 239 , Mean Platelet Volume 5.4L, Neutrophils (%) (Auto) 78.7H, Lymphocytes (%) (Auto ) 9.7L, Monocytes (%) (Auto) 11.3H, Eosinophils (%) (Auto) 0.0, Basophils (%) ( Auto) 0.4, Differential Total Cells Counted 100, Neutrophils % (Manual) 82H, Lymphocytes % (Manual) 10L, Monocytes % (Manual) 7, Eosinophils % (Manual) 1, Basophils % (Manual) 0, Band Neutrophils 0, Platelet Estimate Adequate, Platelet Morphology Normal, Hypochromasia 1+, Anisocytosis 1+, Target Cells 1+, Ovalocytes 1+, Erythrocyte Sedimentation Rate 48H, Reticulocyte Count 2.5H, Activated Partial Thromboplast Time 44H, Sodium Level 143, Potassium Level 3.9, Chloride Level 97L, Carbon Dioxide Level 36H, Anion Gap 10, Blood Urea Nitrogen 24H, Creatinine 1.0H, Estimat Glomerular Filtration Rate , Glucose Level 104, Calcium Level 8.7, Iron Level 18L, Total Iron Binding Capacity 291, Percent Iron Saturation 6L, Unsaturated Iron Binding 273, Total Bilirubin 0.3, Aspartate Amino Transf (AST/SGOT) 13, Alanine Aminotransferase (ALT/SGPT) 6, Alkaline Phosphatase 119H, Lactate Dehydrogenase 208, Troponin I < 0.30, Pro-B- Type Natriuretic Peptide 4368H, Total Protein 5.6L, Albumin 3.5, Globulin 2.1, Albumin/Globulin Ratio 1.6, Carcinoembryonic Antigen 1.6, Vitamin B12 Level 987H , Folate [Pending] Current Medications Medications (Trade) Dose Ordered Sig/Fredy Route PRN Reason Start Time Stop Time Status Last Admin Dose Admin Acetaminophen (Tylenol) 650 mg Q4H PRN ORAL Fever 12/25/16 21:30 01/24/17 21:29 12/27/16 09:50 Albuterol Sulfate (Proventil) 2.5 mg TIDRT HHN 12/26/16 13:00 12/31/16 12:59 12/27/16 07:42 Albuterol/ Ipratropium (DuoNeb 0.5-3(2.5)mg/3ml) 3 ml Q4H PRN HHN Shortness of Breath 12/26/16 11:30 12/30/16 21:29 Amlodipine Besylate (Norvasc) 5 mg DAILY ORAL 12/26/16 09:00 01/25/17 08:59 12/27/16 09:11 Clonidine HCl (Catapres) 0.1 mg DAILY PRN ORAL For High Blood Pressure 12/25/16 21:30 01/24/17 21:29 Clotrimazole (Lotrimin) 1 applic EVERY 12 HOURS TOPIC 12/26/16 21:00 01/25/17 20:59 12/27/16 09:10 Dextrose (Dextrose 50%) STAT PRN IV Hypoglycemia 12/25/16 21:30 01/24/17 21:29 Escitalopram Oxalate (Lexapro) 10 mg DAILY ORAL 12/26/16 09:00 01/25/17 08:59 12/27/16 09:11 Furosemide (Lasix) 40 mg EVERY 8 HOURS IV 12/25/16 22:00 01/24/17 21:59 12/27/16 05:46 Heparin Sodium (Porcine) (Heparin 5000 units/ml) 5,000 units EVERY 12 HOURS SUBQ 12/26/16 09:00 01/25/17 08:59 12/27/16 09:12 Lisinopril (Prinivil) 40 mg BID ORAL 12/26/16 09:00 01/25/17 08:59 12/27/16 09:17 Metoprolol Succinate (Toprol XL) 50 mg DAILY ORAL 12/27/16 09:00 01/26/17 08:59 Ondansetron HCl (Zofran) 4 mg Q6H PRN IVP Nausea & Vomiting 12/25/16 21:30 01/24/17 21:29 Pantoprazole (Protonix) 40 mg DAILY ORAL 12/26/16 09:00 01/25/17 08:59 12/27/16 09:11 Polyethylene Glycol (Miralax) 17 gm DAILYPRN PRN ORAL Constipation 12/25/16 21:30 01/24/17 21:29 Prednisone (predniSONE) 20 mg DAILY ORAL 12/26/16 09:00 01/25/17 08:59 12/27/16 09:11 Temazepam (Restoril) 15 mg HSPRN PRN ORAL Insomnia 12/25/16 21:30 01/01/17 21:29 12/26/16 21:31 HUBERT MENDEZ Dec 27, 2016 12:23
--- NOTE | 2016-12-27 14:55 | Internal Med Progress Note ---
Subjective Date of Service: Dec 27, 2016 Physician Name Lewis Robertson Attending Physician Yandel Haines MD Current Medications Medications (Trade) Dose Ordered Sig/Fredy Route PRN Reason Start Time Stop Time Status Last Admin Dose Admin Acetaminophen (Tylenol) 650 mg Q4H PRN ORAL Fever 12/25/16 21:30 01/24/17 21:29 12/27/16 09:50 Albuterol Sulfate (Proventil) 2.5 mg TIDRT HHN 12/26/16 13:00 12/31/16 12:59 12/27/16 13:32 Albuterol/ Ipratropium (DuoNeb 0.5-3(2.5)mg/3ml) 3 ml Q4H PRN HHN Shortness of Breath 12/26/16 11:30 12/30/16 21:29 Amlodipine Besylate (Norvasc) 5 mg DAILY ORAL 12/26/16 09:00 01/25/17 08:59 12/27/16 09:11 Clonidine HCl (Catapres) 0.1 mg DAILY PRN ORAL For High Blood Pressure 12/25/16 21:30 01/24/17 21:29 Clotrimazole (Lotrimin) 1 applic EVERY 12 HOURS TOPIC 12/26/16 21:00 01/25/17 20:59 12/27/16 09:10 Dextrose (Dextrose 50%) STAT PRN IV Hypoglycemia 12/25/16 21:30 01/24/17 21:29 Escitalopram Oxalate (Lexapro) 10 mg DAILY ORAL 12/26/16 09:00 01/25/17 08:59 12/27/16 09:11 Furosemide (Lasix) 40 mg EVERY 8 HOURS IV 12/25/16 22:00 01/24/17 21:59 12/27/16 14:00 Heparin Sodium (Porcine) (Heparin 5000 units/ml) 5,000 units EVERY 12 HOURS SUBQ 12/26/16 09:00 01/25/17 08:59 12/27/16 09:12 Lisinopril (Prinivil) 40 mg BID ORAL 12/26/16 09:00 01/25/17 08:59 12/27/16 09:17 Metoprolol Succinate (Toprol XL) 50 mg DAILY ORAL 12/27/16 09:00 01/26/17 08:59 Ondansetron HCl (Zofran) 4 mg Q6H PRN IVP Nausea & Vomiting 12/25/16 21:30 01/24/17 21:29 Pantoprazole (Protonix) 40 mg DAILY ORAL 12/26/16 09:00 01/25/17 08:59 12/27/16 09:11 Polyethylene Glycol (Miralax) 17 gm DAILYPRN PRN ORAL Constipation 12/25/16 21:30 01/24/17 21:29 Prednisone (predniSONE) 20 mg DAILY ORAL 12/26/16 09:00 01/25/17 08:59 12/27/16 09:11 Temazepam (Restoril) 15 mg HSPRN PRN ORAL Insomnia 12/25/16 21:30 01/01/17 21:29 12/26/16 21:31 Allergies: Coded Allergies: No Known Allergies (Unverified , 04/27/14) ROS Limited/Unobtainable: No Constitutional: Reports: no symptoms HEENT: Reports: no symptoms Cardiovascular: Reports: no symptoms Respiratory: Reports: shortness of breath Gastrointestinal/Abdominal: Reports: no symptoms Genitourinary: Reports: no symptoms Neurologic/Psychiatric: Reports: no symptoms Subjective 86 YO F admitted with shortness of breath, now deven heart failure. Cover for Int Med-Dr Haines. Objective Last Vital Signs Date Time Temp Pulse Resp B/P (MAP) Pulse Ox O2 Delivery O2 Flow Rate FiO2 12/27/16 13:30 61 18 80 Room Air 12/27/16 11:54 97.5 124/50 2.0 12/27/16 07:50 28 General Appearance: WD/WN, no apparent distress, alert EENT: PERRL/EOMI, normal ENT inspection Neck: non-tender, normal alignment, supple Cardiovascular: normal peripheral pulses, normal rate, regular rhythm, no gallop/murmur, no JVD Respiratory/Chest: chest wall non-tender, respiratory distress, crackles/rales , rhonchi - bilaterally, expiratory wheezing Abdomen: normal bowel sounds, non tender, soft, no organomegaly, no mass, abnormal bowel sounds Extremities: normal range of motion, non-tender Neurologic: agricultural equipment 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 manager II-XII grossly normal, no motor/sensory deficits Skin: normal pigmentation Laboratory Tests Test 12/26/16 16:47 12/27/16 06:25 Prothrombin Time 43.9 SEC (9.30-11.50) H 40.5 SEC (9.30-11.50) H Prothromb Time International Ratio 4.1 (0.9-1.1) H 3.8 (0.9-1.1) H White Blood Count 9.8 K/UL (4.8-10.8) Red Blood Count 3.34 M/UL (4.20-5.40) L Hemoglobin 8.4 G/DL (12.0-16.0) L Hematocrit 28.2 % (37.0-47.0) L Mean Corpuscular Volume 85 FL (80-99) Mean Corpuscular Hemoglobin 25.0 PG (27.0-31.0) L Mean Corpuscular Hemoglobin Concent 29.6 G/DL (32.0-36.0) L Red Cell Distribution Width 18.4 % (11.6-14.8) H Platelet Count 239 K/UL (150-450) Mean Platelet Volume 5.4 FL (6.5-10.1) L Neutrophils (%) (Auto) 78.7 % (45.0-75.0) H Lymphocytes (%) (Auto) 9.7 % (20.0-45.0) L Monocytes (%) (Auto) 11.3 % (1.0-10.0) H Eosinophils (%) (Auto) 0.0 % (0.0-3.0) Basophils (%) (Auto) 0.4 % (0.0-2.0) Differential Total Cells Counted 100 Neutrophils % (Manual) 82 % (45-75) H Lymphocytes % (Manual) 10 % (20-45) L Monocytes % (Manual) 7 % (1-10) Eosinophils % (Manual) 1 % (0-3) Basophils % (Manual) 0 % (0-2) Band Neutrophils 0 % (0-8) Platelet Estimate Adequate Platelet Morphology Normal Hypochromasia 1+ Anisocytosis 1+ Target Cells 1+ Ovalocytes 1+ Erythrocyte Sedimentation Rate 48 MM/HR (0-42) H Reticulocyte Count 2.5 % (0.0-2.0) H Activated Partial Thromboplast Time 44 SEC (23-33) H Sodium Level 143 mEQ/L (135-145) Potassium Level 3.9 mEQ/L (3.4-4.9) Chloride Level 97 mEQ/L (98-107) L Carbon Dioxide Level 36 mEQ/L (20-30) H Anion Gap 10 (5-15) Blood Urea Nitrogen 24 mg/dL (7-23) H Creatinine 1.0 mg/dL (0.5-0.9) H Estimat Glomerular Filtration Rate mL/min (>60) Glucose Level 104 mg/dL (74-106) Calcium Level 8.7 mg/dL (8.6-10.2) Iron Level 18 ug/dL (37-145) L Total Iron Binding Capacity 291 ug/dL (250-400) Percent Iron Saturation 6 % (15-50) L Unsaturated Iron Binding 273 ug/dL (112-346) Total Bilirubin 0.3 mg/dL (0.0-1.2) Aspartate Amino Transf (AST/SGOT) 13 U/L (5-40) Alanine Aminotransferase (ALT/SGPT) 6 U/L (3-33) Alkaline Phosphatase 119 U/L (35-104) H Lactate Dehydrogenase 208 U/L (135-230) Troponin I < 0.30 ng/mL (<=0.30) Pro-B-Type Natriuretic Peptide 4368 pg/mL (0-450) H Total Protein 5.6 g/dL (6.6-8.7) L Albumin 3.5 g/dL (3.5-5.2) Globulin 2.1 g/dL Albumin/Globulin Ratio 1.6 (1.0-2.7) Carcinoembryonic Antigen 1.6 ng/mL Vitamin B12 Level 987 pg/mL (211-946) H Folate Pending Microbiology Date/Time Source Procedure Growth Status 12/25/16 16:25 Blood Blood Culture - Preliminary NO GROWTH AFTER 24 HOURS Resulted 12/25/16 16:25 Blood Blood Culture - Preliminary NO GROWTH AFTER 24 HOURS Resulted Intake and Output 12/27/16 12/28/16 19:00 07:00 Intake Total 240 ml Output Total 200 ml Balance 40 ml Intake Oral 240 ml Output Urine Total 200 ml # Voids 2 Assessment/Plan Problem List: (1) Aortic valve replaced (2) SOB (shortness of breath) (3) CHF (congestive heart failure) Assessment & Plan: LVEF=55%. Cont IV lasix per cardiology. (4) HTN (hypertension) Assessment & Plan: Cont toprolol, lisinopril and clonidine. (5) Hypercholesteremia (6) Major depression Assessment & Plan: Cont lexapro Status: not improved LEWIS ROBERTSON Dec 27, 2016 14:55
[2016-12-27 16:06] VITALS: BP 130/49
--- NOTE | 2016-12-27 17:37 | Cardiac Electrophysiology PN ---
Assessment/Plan Assessment/Plan 1. Shortness of breath, likely secondary to congestive heart failure. Continue Lasix 40 mg IV every eight hours. Echocardiogram showed ejection fraction of 55% with mild tricuspid regurgitation and severe pulmonary hypertension with PA pressure of 101. 2. Status post [employer] [facility] aortic valve replacement 3. Hypertension, on Norvasc 5 mg daily, Toprol 50 daily, lisinopril 40 mg b.i.d. as well as Lasix. 4. Chronic atrial fibrillation, rate is controlled on Lopressor 50 daily. On Coumadin per Rx 5. Status post Dual chamber Medtronic permanent pacemaker implantation. 6. Pleural effusion, status post recent thoracentesis at [facility]. 7. Hyperlipidemia, on Pravachol. DW RN Subjective Subjective Comfortable in NAD. No chest pain or SOB. Objective Last 24 Hour Vital Signs Date Time Temp Pulse Resp B/P (MAP) Pulse Ox O2 Delivery O2 Flow Rate FiO2 12/27/16 16:06 97.7 60 20 130/49 95 Nasal Cannula 2.0 12/27/16 13:41 62 18 100 Nasal Cannula 2.0 12/27/16 13:30 61 18 80 Room Air 12/27/16 12:00 63 12/27/16 11:54 97.5 60 18 124/50 98 Nasal Cannula 2.0 12/27/16 09:17 142/63 12/27/16 09:11 60 142/63 12/27/16 09:00 60 12/27/16 08:43 97.7 60 20 142/63 99 Nasal Cannula 2.0 12/27/16 08:00 60 12/27/16 07:50 65 18 100 Nasal Cannula 2.0 12/27/16 07:42 96 Nasal Cannula 2.0 12/27/16 07:41 Nasal Cannula 2.0 12/27/16 07:40 60 16 96 Nasal Cannula 2.0 12/27/16 04:12 97.2 60 20 129/63 99 Room Air 12/27/16 04:00 60 12/27/16 00:00 60 12/26/16 23:52 97.0 60 18 150/55 95 Nasal Cannula 12/26/16 20:00 60 12/26/16 19:52 62 16 100 Nasal Cannula 2.0 12/26/16 19:50 98.2 61 20 108/49 93 Nasal Cannula 12/26/16 19:42 61 18 98 Nasal Cannula 2.0 28 12/26/16 18:05 126/68 Intake and Output 12/27/16 12/28/16 19:00 07:00 Intake Total 240 ml Output Total 200 ml Balance 40 ml Intake Oral 240 ml Output Urine Total 200 ml # Voids 2 Laboratory Tests Test 12/27/16 06:25 White Blood Count 9.8 K/UL (4.8-10.8) Red Blood Count 3.34 M/UL (4.20-5.40) L Hemoglobin 8.4 G/DL (12.0-16.0) L Hematocrit 28.2 % (37.0-47.0) L Mean Corpuscular Volume 85 FL (80-99) Mean Corpuscular Hemoglobin 25.0 PG (27.0-31.0) L Mean Corpuscular Hemoglobin Concent 29.6 G/DL (32.0-36.0) L Red Cell Distribution Width 18.4 % (11.6-14.8) H Platelet Count 239 K/UL (150-450) Mean Platelet Volume 5.4 FL (6.5-10.1) L Neutrophils (%) (Auto) 78.7 % (45.0-75.0) H Lymphocytes (%) (Auto) 9.7 % (20.0-45.0) L Monocytes (%) (Auto) 11.3 % (1.0-10.0) H Eosinophils (%) (Auto) 0.0 % (0.0-3.0) Basophils (%) (Auto) 0.4 % (0.0-2.0) Differential Total Cells Counted 100 Neutrophils % (Manual) 82 % (45-75) H Lymphocytes % (Manual) 10 % (20-45) L Monocytes % (Manual) 7 % (1-10) Eosinophils % (Manual) 1 % (0-3) Basophils % (Manual) 0 % (0-2) Band Neutrophils 0 % (0-8) Platelet Estimate Adequate Platelet Morphology Normal Hypochromasia 1+ Anisocytosis 1+ Target Cells 1+ Ovalocytes 1+ Erythrocyte Sedimentation Rate 48 MM/HR (0-42) H Reticulocyte Count 2.5 % (0.0-2.0) H Prothrombin Time 40.5 SEC (9.30-11.50) H Prothromb Time International Ratio 3.8 (0.9-1.1) H Activated Partial Thromboplast Time 44 SEC (23-33) H Sodium Level 143 mEQ/L (135-145) Potassium Level 3.9 mEQ/L (3.4-4.9) Chloride Level 97 mEQ/L (98-107) L Carbon Dioxide Level 36 mEQ/L (20-30) H Anion Gap 10 (5-15) Blood Urea Nitrogen 24 mg/dL (7-23) H Creatinine 1.0 mg/dL (0.5-0.9) H Estimat Glomerular Filtration Rate mL/min (>60) Glucose Level 104 mg/dL (74-106) Calcium Level 8.7 mg/dL (8.6-10.2) Iron Level 18 ug/dL (37-145) L Total Iron Binding Capacity 291 ug/dL (250-400) Percent Iron Saturation 6 % (15-50) L Unsaturated Iron Binding 273 ug/dL (112-346) Total Bilirubin 0.3 mg/dL (0.0-1.2) Aspartate Amino Transf (AST/SGOT) 13 U/L (5-40) Alanine Aminotransferase (ALT/SGPT) 6 U/L (3-33) Alkaline Phosphatase 119 U/L (35-104) H Lactate Dehydrogenase 208 U/L (135-230) Troponin I < 0.30 ng/mL (<=0.30) Pro-B-Type Natriuretic Peptide 4368 pg/mL (0-450) H Total Protein 5.6 g/dL (6.6-8.7) L Albumin 3.5 g/dL (3.5-5.2) Globulin 2.1 g/dL Albumin/Globulin Ratio 1.6 (1.0-2.7) Carcinoembryonic Antigen 1.6 ng/mL Vitamin B12 Level 987 pg/mL (211-946) H Folate Pending Microbiology Date/Time Source Procedure Growth Status 12/25/16 16:25 Blood Blood Culture - Preliminary NO GROWTH AFTER 24 HOURS Resulted 12/25/16 16:25 Blood Blood Culture - Preliminary NO GROWTH AFTER 24 HOURS Resulted Objective HEAD AND NECK: Positive JVD. LUNGS: Decreased breath sounds bilaterally. CARDIOVASCULAR: Shows irregular S1 and S2 with no gallop. ABDOMEN: Soft. EXTREMITIES: There is 2+ pitting edema FRANCISCO BANERJEE Dec 27, 2016 17:37
[2016-12-27] MEDS ORDERED: Pneumococcal Vaccine 25mcg/0.5ml IM ONE (18:00)
[2016-12-27] MEDS ORDERED: Flu Vaccine Quadrivalent 0.5ml IM ONE (18:00)
[2016-12-27 20:00] VITALS: BP 124/49
[2016-12-28] VITALS: BP 119/52
[2016-12-28 00:23] VITALS: BP 106/67
[2016-12-28 04:00] VITALS: BP 138/59
[2016-12-28 07:32] LABS: BASOPHILS % (AUTO) 0.6 % (0.0-2.0); LYMPHOCYTES % (AUTO) 11.9 % (20.0-45.0); MEAN CORPUSCULAR HEMOGLOBIN 25.5 PG (27.0-31.0); MEAN CORPUSCULAR VOLUME 85 FL (80-99); MEAN PLATELET VOLUME 5.8 FL (6.5-10.1); MONOCYTES % (AUTO) 9.3 % (1.0-10.0); NEUTROPHILS % (AUTO) 78.2 % (45.0-75.0); PLATELET COUNT 268 K/UL (150-450); RED BLOOD COUNT 3.73 M/UL (4.20-5.40); RED CELL DISTRIBUTION WIDTH 18.6 % (11.6-14.8); WHITE BLOOD COUNT 11.4 K/UL (4.8-10.8)
[2016-12-28 07:51] LABS: ALANINE AMINOTRANSFERASE 7 U/L (3-33); ALBUMIN/GLOBULIN RATIO 1.2 (1.0-2.7); ANION GAP 9 (5-15); ASPARTATE AMINO TRANSFERASE 17 U/L (5-40); CALCIUM 9.4 mg/dL (8.6-10.2); CARBON DIOXIDE 37 mEQ/L (20-30); CHLORIDE 99 mEQ/L (98-107); CREATININE 1.2 mg/dL (0.5-0.9); HEMOLYSIS 0; POTASSIUM 4.3 mEQ/L (3.4-4.9); SODIUM 145 mEQ/L (135-145); TOTAL PROTEIN 6.8 g/dL (6.6-8.7)
[2016-12-28 08:00] VITALS: BP 120/44
[2016-12-28] MEDS: Albuterol ud Inhalation HHN SCH ×2 (08:23→13:57)
[2016-12-28] MEDS: Heparin 5000 units/ml inj SUBQ SCH ×3 (09:00→11:42)
[2016-12-28] MEDS: Lisinopril 20mg tab ORAL SCH (09:12)
[2016-12-28] MEDS: Metoprolol Succinate XL 50mg tab ORAL SCH (09:18)
[2016-12-28 12:00] VITALS: BP 127/52
--- NOTE | 2016-12-28 12:14 | Diagnostic Imaging Report ---
APPROVED REPORT CPT Code: 60178 Present Symptoms Lower Extremity Edema: Bilateral Shortness of breath BILATERAL: Imaging reveals a patent deep venous system bilaterally. There is no evidence of thrombus within the femoral, popliteal or tibial segments. The greater saphenous veins are also within normal limits. Doppler indicates normal spontaneous flow within these segments.
--- NOTE | 2016-12-28 12:19 | Pulmonology Progress Note ---
Assessment/Plan Problems: (1) CHF (congestive heart failure) (2) Pleural effusion (3) Major depression (4) Pacemaker Assessment/Plan on lasix 40 q 8 hours check intake/ output avoid thoracentesis, because of previous pneumothorax. watch bun/creatinine check electrolytes. Subjective ROS Limited/Unobtainable: No Constitutional: Reports: no symptoms HEENT: Repors: no symptoms Respiratory: Reports: no symptoms Allergies: Coded Allergies: No Known Allergies (Unverified , 04/27/14) Objective Last 24 Hour Vital Signs Date Time Temp Pulse Resp B/P (MAP) Pulse Ox O2 Delivery O2 Flow Rate FiO2 12/28/16 09:18 65 120/44 12/28/16 09:16 65 120/44 12/28/16 09:12 120/44 12/28/16 08:34 65 16 100 Room Air 12/28/16 08:23 28 12/28/16 08:20 Nasal Cannula 2.0 12/28/16 08:20 88 Room Air 12/28/16 08:20 84 18 88 Nasal Cannula 2.0 12/28/16 08:00 60 12/28/16 08:00 97.0 65 20 120/44 95 Nasal Cannula 2.0 12/28/16 04:00 97.2 60 20 138/59 98 Nasal Cannula 3.0 12/28/16 04:00 60 12/28/16 00:23 97.0 77 20 106/67 96 Room Air 12/28/16 00:00 97.0 60 21 119/52 90 Simple Mask 2.0 12/28/16 00:00 60 12/27/16 20:10 62 16 98 Nasal Cannula 2.0 12/27/16 20:00 99.5 60 21 124/49 96 Nasal Cannula 2.0 12/27/16 20:00 60 12/27/16 19:57 28 12/27/16 19:57 Nasal Cannula 2.0 12/27/16 19:57 60 18 97 Nasal Cannula 2.0 12/27/16 19:56 97 Nasal Cannula 2.0 12/27/16 17:52 60 130/49 12/27/16 17:52 130/49 12/27/16 16:06 97.7 60 20 130/49 95 Nasal Cannula 2.0 12/27/16 16:00 60 12/27/16 13:41 62 18 100 Nasal Cannula 2.0 28 12/27/16 13:30 61 18 80 Room Air General Appearance: WD/WN HEENT: normocephalic, atraumatic, PERRL Respiratory/Chest: chest wall non-tender, lungs clear Breasts: no masses Cardiovascular: normal peripheral pulses, regularly irregular Abdomen: normal bowel sounds, soft, non tender Extremities: no cyanosis Skin: no rash Microbiology Date/Time Source Procedure Growth Status 12/25/16 16:25 Blood Blood Culture - Preliminary NO GROWTH AFTER 48 HOURS Resulted 12/25/16 16:25 Blood Blood Culture - Preliminary NO GROWTH AFTER 48 HOURS Resulted 12/26/16 04:00 Nasal Nares MRSA Culture - Final NO METHICILLIN RESISTANT STAPH AUREUS... Complete 12/26/16 06:00 Rectum VRE Culture - Final NO VANCOMYCIN RESISTANT ENTEROCOCCUS ... Complete Laboratory Tests 12/28/16 06:10: White Blood Count 11.4H, Red Blood Count 3.73L, Hemoglobin 9.5L, Hematocrit 31.7L, Mean Corpuscular Volume 85, Mean Corpuscular Hemoglobin 25.5L, Mean Corpuscular Hemoglobin Concent 30.0L, Red Cell Distribution Width 18.6H, Platelet Count 268, Mean Platelet Volume 5.8L, Neutrophils (%) (Auto) 78.2H, Lymphocytes (%) (Auto) 11.9L, Monocytes (%) (Auto) 9.3, Eosinophils (%) (Auto) 0.0, Basophils (%) (Auto) 0.6, Sodium Level 145, Potassium Level 4.3, Chloride Level 99, Carbon Dioxide Level 37H, Anion Gap 9, Blood Urea Nitrogen 36H, Creatinine 1.2H, Estimat Glomerular Filtration Rate , Glucose Level 100, Calcium Level 9.4, Total Bilirubin 0.4, Aspartate Amino Transf (AST/SGOT) 17, Alanine Aminotransferase (ALT/SGPT) 7, Alkaline Phosphatase 135H, Pro-B-Type Natriuretic Peptide 4646H, Total Protein 6.8, Albumin 3.8, Globulin 3.0, Albumin /Globulin Ratio 1.2 Current Medications Medications (Trade) Dose Ordered Sig/Fredy Route PRN Reason Start Time Stop Time Status Last Admin Dose Admin Acetaminophen (Tylenol) 650 mg Q4H PRN ORAL Fever 12/25/16 21:30 01/24/17 21:29 12/27/16 09:50 Albuterol Sulfate (Proventil) 2.5 mg TIDRT HHN 12/26/16 13:00 12/31/16 12:59 12/28/16 08:23 Albuterol/ Ipratropium (DuoNeb 0.5-3(2.5)mg/3ml) 3 ml Q4H PRN HHN Shortness of Breath 12/26/16 11:30 12/30/16 21:29 Amlodipine Besylate (Norvasc) 5 mg DAILY ORAL 12/26/16 09:00 01/25/17 08:59 12/28/16 09:16 Clonidine HCl (Catapres) 0.1 mg DAILY PRN ORAL For High Blood Pressure 12/25/16 21:30 01/24/17 21:29 Clotrimazole (Lotrimin) 1 applic EVERY 12 HOURS TOPIC 12/26/16 21:00 01/25/17 20:59 12/28/16 09:28 Dextrose (Dextrose 50%) STAT PRN IV Hypoglycemia 12/25/16 21:30 01/24/17 21:29 Escitalopram Oxalate (Lexapro) 10 mg DAILY ORAL 12/26/16 09:00 01/25/17 08:59 12/28/16 09:11 Furosemide (Lasix) 40 mg EVERY 8 HOURS IV 12/25/16 22:00 01/24/17 21:59 12/28/16 05:53 Heparin Sodium (Porcine) (Heparin 5000 units/ml) 5,000 units EVERY 12 HOURS SUBQ 12/26/16 09:00 01/25/17 08:59 12/28/16 11:42 Lisinopril (Prinivil) 40 mg BID ORAL 12/26/16 09:00 01/25/17 08:59 12/28/16 09:12 Metoprolol Succinate (Toprol XL) 50 mg DAILY ORAL 12/27/16 09:00 01/26/17 08:59 12/28/16 09:18 Ondansetron HCl (Zofran) 4 mg Q6H PRN IVP Nausea & Vomiting 12/25/16 21:30 01/24/17 21:29 Pantoprazole (Protonix) 40 mg ACBREAKFAST ORAL 12/29/16 06:30 01/25/17 08:59 Polyethylene Glycol (Miralax) 17 gm DAILYPRN PRN ORAL Constipation 12/25/16 21:30 01/24/17 21:29 Prednisone (predniSONE) 20 mg DAILY ORAL 12/26/16 09:00 01/25/17 08:59 12/28/16 09:16 Temazepam (Restoril) 15 mg HSPRN PRN ORAL Insomnia 12/25/16 21:30 01/01/17 21:29 12/27/16 20:56 HUBERT MENDEZ Dec 28, 2016 12:19
[2016-12-28 13:26] LABS: OTHERS PATHOLOGIST COMMENT
--- NOTE | 2016-12-28 15:31 | Cardiac Electrophysiology PN ---
Assessment/Plan Assessment/Plan 1. Shortness of breath, likely secondary to congestive heart failure. Decrease Lasix to 40 mg IV BID. Echocardiogram EF 55% 2. Severe pulmonary hypertension with PA pressure of 101. 3. Status post [facility] [employer] aortic valve replacement 4. Hypertension, on Norvasc 5 mg daily, Toprol 50 daily, lisinopril 40 mg b.i.d. as well as Lasix. 5. Chronic atrial fibrillation, rate is controlled on Lopressor 50 daily. On Coumadin per Rx 6. Status post Dual chamber Medtronic permanent pacemaker implantation. 7. Pleural effusion, status post recent thoracentesis at [facility]. 8. Hyperlipidemia, on Pravachol. MIREILLE RN Subjective Subjective Comfortable in NAD. Daughter at bedside. Objective Last 24 Hour Vital Signs Date Time Temp Pulse Resp B/P (MAP) Pulse Ox O2 Delivery O2 Flow Rate FiO2 12/28/16 13:30 21 12/28/16 13:26 68 16 98 Room Air 12/28/16 13:26 67 20 95 Room Air 12/28/16 12:00 97.2 60 21 127/52 90 Room Air 12/28/16 09:18 65 120/44 12/28/16 09:16 65 120/44 12/28/16 09:12 120/44 12/28/16 08:34 65 16 100 Room Air 12/28/16 08:23 28 12/28/16 08:20 Nasal Cannula 2.0 12/28/16 08:20 88 Room Air 12/28/16 08:20 84 18 88 Nasal Cannula 2.0 12/28/16 08:00 60 12/28/16 08:00 97.0 65 20 120/44 95 Nasal Cannula 2.0 12/28/16 04:00 97.2 60 20 138/59 98 Nasal Cannula 3.0 12/28/16 04:00 60 12/28/16 00:23 97.0 77 20 106/67 96 Room Air 12/28/16 00:00 97.0 60 21 119/52 90 Simple Mask 2.0 12/28/16 00:00 60 12/27/16 20:10 62 16 98 Nasal Cannula 2.0 12/27/16 20:00 99.5 60 21 124/49 96 Nasal Cannula 2.0 12/27/16 20:00 60 12/27/16 19:57 28 12/27/16 19:57 Nasal Cannula 2.0 12/27/16 19:57 60 18 97 Nasal Cannula 2.0 12/27/16 19:56 97 Nasal Cannula 2.0 12/27/16 17:52 60 130/49 12/27/16 17:52 130/49 12/27/16 16:06 97.7 60 20 130/49 95 Nasal Cannula 2.0 12/27/16 16:00 60 Laboratory Tests Test 12/28/16 06:10 White Blood Count 11.4 K/UL (4.8-10.8) H Red Blood Count 3.73 M/UL (4.20-5.40) L Hemoglobin 9.5 G/DL (12.0-16.0) L Hematocrit 31.7 % (37.0-47.0) L Mean Corpuscular Volume 85 FL (80-99) Mean Corpuscular Hemoglobin 25.5 PG (27.0-31.0) L Mean Corpuscular Hemoglobin Concent 30.0 G/DL (32.0-36.0) L Red Cell Distribution Width 18.6 % (11.6-14.8) H Platelet Count 268 K/UL (150-450) Mean Platelet Volume 5.8 FL (6.5-10.1) L Neutrophils (%) (Auto) 78.2 % (45.0-75.0) H Lymphocytes (%) (Auto) 11.9 % (20.0-45.0) L Monocytes (%) (Auto) 9.3 % (1.0-10.0) Eosinophils (%) (Auto) 0.0 % (0.0-3.0) Basophils (%) (Auto) 0.6 % (0.0-2.0) Sodium Level 145 mEQ/L (135-145) Potassium Level 4.3 mEQ/L (3.4-4.9) Chloride Level 99 mEQ/L (98-107) Carbon Dioxide Level 37 mEQ/L (20-30) H Anion Gap 9 (5-15) Blood Urea Nitrogen 36 mg/dL (7-23) H Creatinine 1.2 mg/dL (0.5-0.9) H Estimat Glomerular Filtration Rate mL/min (>60) Glucose Level 100 mg/dL (74-106) Calcium Level 9.4 mg/dL (8.6-10.2) Total Bilirubin 0.4 mg/dL (0.0-1.2) Aspartate Amino Transf (AST/SGOT) 17 U/L (5-40) Alanine Aminotransferase (ALT/SGPT) 7 U/L (3-33) Alkaline Phosphatase 135 U/L (35-104) H Pro-B-Type Natriuretic Peptide 4646 pg/mL (0-450) H Total Protein 6.8 g/dL (6.6-8.7) Albumin 3.8 g/dL (3.5-5.2) Globulin 3.0 g/dL Albumin/Globulin Ratio 1.2 (1.0-2.7) Microbiology Date/Time Source Procedure Growth Status 12/25/16 16:25 Blood Blood Culture - Preliminary NO GROWTH AFTER 48 HOURS Resulted 12/25/16 16:25 Blood Blood Culture - Preliminary NO GROWTH AFTER 48 HOURS Resulted 12/26/16 04:00 Nasal Nares MRSA Culture - Final NO METHICILLIN RESISTANT STAPH AUREUS... Complete 12/26/16 06:00 Rectum VRE Culture - Final NO VANCOMYCIN RESISTANT ENTEROCOCCUS ... Complete Objective HEAD AND NECK: Positive JVD. LUNGS: Decreased breath sounds bilaterally. CARDIOVASCULAR: Shows irregular S1 and S2 with no gallop. ABDOMEN: Soft. EXTREMITIES: There is 2+ pitting edema FRANCISCO BANERJEE Dec 28, 2016 15:31
[2016-12-28 16:00] VITALS: BP 125/51
--- NOTE | 2016-12-28 16:08 | Discharge Summary ---
Discharge Summary Hospital Course Date of Admission Dec 25, 2016 at 17:05 Date of Discharge Admitting Diagnosis ACUTE CHF SUSHMA Kurtz is a 86 year old female who was admitted on Dec 25, 2016 at 17: 05 for Acute Congestive Heart Failure Hospital Course Last 24 Hour Vital Signs Date Time Temp Pulse Resp B/P (MAP) Pulse Ox O2 Delivery O2 Flow Rate FiO2 12/28/16 13:30 21 12/28/16 13:26 68 16 98 Room Air 12/28/16 13:26 67 20 95 Room Air 12/28/16 12:00 97.2 60 21 127/52 90 Room Air 12/28/16 09:18 65 120/44 12/28/16 09:16 65 120/44 12/28/16 09:12 120/44 12/28/16 08:34 65 16 100 Room Air 12/28/16 08:23 28 12/28/16 08:20 Nasal Cannula 2.0 12/28/16 08:20 88 Room Air 12/28/16 08:20 84 18 88 Nasal Cannula 2.0 12/28/16 08:00 60 12/28/16 08:00 97.0 65 20 120/44 95 Nasal Cannula 2.0 12/28/16 04:00 97.2 60 20 138/59 98 Nasal Cannula 3.0 12/28/16 04:00 60 12/28/16 00:23 97.0 77 20 106/67 96 Room Air 12/28/16 00:00 97.0 60 21 119/52 90 Simple Mask 2.0 12/28/16 00:00 60 12/27/16 20:10 62 16 98 Nasal Cannula 2.0 12/27/16 20:00 99.5 60 21 124/49 96 Nasal Cannula 2.0 12/27/16 20:00 60 12/27/16 19:57 28 12/27/16 19:57 Nasal Cannula 2.0 12/27/16 19:57 60 18 97 Nasal Cannula 2.0 12/27/16 19:56 97 Nasal Cannula 2.0 12/27/16 17:52 60 130/49 12/27/16 17:52 130/49 Physical Exam General: No acute distress, awake and alert HEENT: NCAT, sclera anicteric, PERRL, EOMI. Neck: Supple, no significant jugular venous distention, Lungs: Good inspiratory effort, clear to auscultation bilaterally, no Wheeze or Rales. Heart: IRRegular rate and rhythm, normal S1/S2, no murmurs, Pacemaker @ [facility]. Abdomen: soft, nontender, nondistended. Normoactive bowel sounds. / Rectal: Refused and deferred. Extremities: No Cyanosis , clubbing decrease LE's edema. Neuro: A&O x 3, Able to move all extremities Skin: warm, no rashes or lesions Psych: Normal mood and affect Discharge [facility] dictated: [id number] Discharge Discharge Disposition Patient was discharged to Discharge Diagnoses: Yandel Haines MD Dec 28, 2016 16:08
--- NOTE | 2016-12-29 06:45 | Discharge Summary ---
DATE OF ADMISSION: 12/25/2016 DATE OF DISCHARGE: 12/28/2016 History Of Present Illness: This is an 86-year-old very delightful [place]an female with past medical history significant for hypertension, congestive heart failure with history of pleural effusion, mitral valve replacement, status post pacemaker, history of recently fall with pelvic fracture, who was presented to the hospital complaining about shortness of breath. Shortly after initial evaluation, the patient was admitted to the hospital with acute CHF exacerbation with pleural effusion. Throughout the hospital course, the patient was consulted with Dr. Veras from Pulmonary Critical Care and Dr. Herson Carrillo from Cardiology Electrophysiology. The patient had a chest x-ray. It shows bilateral right greater than left pleural effusion demonstrated. The patient's status gradually improved. She had a duplex of the lower extremity done, which showed no evidence of thrombosis within the femoral, popliteal, or tibial segments. The patient's status improved and being discharged home today to be followed as outpatient with Dr. Little. FINAL DIAGNOSES: 1. Acute congestive heart failure exacerbation on chronic with systolic dysfunction. 2. Severe pulmonary hypertension. 3. Status post [employer] aortic valve replacement. 4. Hypertension. 5. Chronic atrial fibrillation. 6. Pleural effusion. 7. Dyslipidemia. Plan: Admit the patient. Advised to follow up with Dr. Little within one to two weeks and I will discuss with the family member extensively with regard to the diet and low salt, low fluid intake, and the patient will follow up with home health as outpatient. Diet would be cardiac diet. Yandel Haines M.D. DR: Natalie JOB#: [id number] CC:
== END 2016-12-28 18:17 | disposition home health service (06) | DRG 293 ==
LOC: EDBD 16:07 → EMR 16:15 → MERGE 17:05 → 2E 17:05 → EDBEDREQ 17:20 → 2E 18:12
DX: I11.0 Hypertensive heart disease with heart failure (principal); I27.2 Other secondary pulmonary hypertension; I48.2 Chronic atrial fibrillation; F32.9 Major depressive disorder, single episode, unspecified; I50.23 Acute on chronic systolic (congestive) heart failure; E78.00 Pure hypercholesterolemia, unspecified; Z95.2 Presence of prosthetic heart valve; Z95.0 Presence of cardiac pacemaker; Z23 Encounter for immunization
CPT/HCPCS: 36415; 71010; 80048; 80053; 80069; 82378; 82550; 82553; 82607; 82746; 83540; 83550; 83615; 83690; 83880; 84484; 85007; 85025; 85044; 85060; 85610; 85651; 85730; 87040; 87081; 90630; 90732; 93005; 93306; 93970; 94640; 94664; 94760; 99285

== ENCOUNTER 2017-06-10 16:20 | Inpatient (IN) | payer MEDICARE, OTHER ==
[~2017-06-10] VITALS: Ht 160 cm; Wt 52.6 kg
[~2017-06-10 16:20] MED LIST changes: +ACETAMINOPHEN-1 EAC1 ORAL; +MAGNESIUM400 M1 PO; +MULTIVITAMINS1 EAC2 ORAL
[2017-06-10 17:08] VITALS: BP 118/62
[2017-06-10] MEDS ORDERED: traMADol 50mg tab ORAL ONE (17:45)
[2017-06-10 18:00] VITALS: BP 122/43
[2017-06-10 18:39] LABS: BASOPHILS % (AUTO) 1.3 % (0.0-2.0); EOSINOPHILS % (AUTO) 0.9 % (0.0-3.0); HEMATOCRIT 37.1 % (37.0-47.0); HEMOGLOBIN 11.9 G/DL (12.0-16.0); LYMPHOCYTES % (AUTO) 17.5 % (20.0-45.0); MEAN CORPUSCULAR VOLUME 93 FL (80-99); MONOCYTES % (AUTO) 8.8 % (1.0-10.0); NEUTROPHILS % (AUTO) 71.5 % (45.0-75.0); PLATELET COUNT 228 K/UL (150-450); RED BLOOD COUNT 3.98 M/UL (4.20-5.40); RED CELL DISTRIBUTION WIDTH 13.7 % (11.6-14.8); WHITE BLOOD COUNT 7.6 K/UL (4.8-10.8)
[2017-06-10 18:42] LABS: ANION GAP 5 mmol/L (5-15); BLOOD UREA NITROGEN 66 mg/dL (7-18); CALCIUM 9.5 MG/DL (8.5-10.1); CARBON DIOXIDE 30 MMOL/L (21-32); CHLORIDE 106 MMOL/L (98-107); CREATININE 1.7 MG/DL (0.55-1.30); SODIUM 141 MMOL/L (136-145)
[2017-06-10 18:46] LABS: ALANINE AMINOTRANSFERASE 13 U/L (12-78); ALBUMIN 3.5 G/DL (3.4-5.0); ALBUMIN/GLOBULIN RATIO 0.9 (1.0-2.7); ALKALINE PHOSPHATASE 63 U/L (46-116); ASPARTATE AMINO TRANSFERASE 16 U/L (15-37); BILIRUBIN,TOTAL 0.2 MG/DL (0.2-1.0)
[2017-06-10 18:51] LABS: PARTIAL THROMBOPLASTIN TIME 62 SEC (23-33)
[2017-06-10 19:14] LABS: INR > 10.0 (0.9-1.1)
[2017-06-10 21:30] VITALS: BP 103/68
[2017-06-10] MEDS ORDERED: Zolpidem 5mg tab ORAL PRN (21:30)
[2017-06-10] MEDS ORDERED: Mylanta II UD 30ml ORAL PRN (21:30)
[2017-06-10] MEDS ORDERED: LORazepam Inj 2mg/ml 1ml IV PRN (21:30)
[2017-06-10] MEDS ORDERED: Morphine Sulfate 2mg/ml Inj IVP PRN (21:30)
[2017-06-10] MEDS ORDERED: Miralax 17gm pkt ORAL PRN (21:30)
--- NOTE | 2017-06-10 22:42 | Emergency Room Report ---
History of Present Illness General Chief Complaint: Abnormal Labs Source: Patient Present Illness HPI 87-year-old female presents ED for evaluation. Patient referred for elevated INR. Patient is on Coumadin for aortic valve replacement. Was told that INR is greater than 14. Daughter at bedside. States the patient feels fine. Denies any headache or weakness. Did note some blood in her stool a few days ago. Denies chest pain or shortness of breath. No other aggravating or relieving factors. Denies any other associated symptoms Allergies: Coded Allergies: No Known Allergies (Verified , 06/09/07) Patient History Past Medical History: HTN, asthma, COPD Past Surgical History: none, other - aortic valve replacement Pertinent Family History: none Social History: Denies: smoking, alcohol use, drug use Now: No Immunizations: UTD Reviewed Nursing Documentation: PMH: Agreed, PSxH: Agreed Nursing Documentation-PMH Hx Cardiac Problems: Yes - Aortic Valve Replacement 4 months ago Hx Hypertension: Yes Hx Asthma: Yes Hx COPD: Yes Hx Cancer: No Hx Gastrointestinal Problems: No Hx Neurological Problems: No Review of Systems All Other Systems: negative except mentioned in HPI Physical Exam Vital Signs Date Time Temp Pulse Resp B/P (MAP) Pulse Ox O2 Delivery O2 Flow Rate FiO2 06/10/17 16:52 98.4 60 16 118/62 94 Room Air 98.4 Sp02 EP Interpretation: reviewed, normal General Appearance: no apparent distress, alert, GCS 15, non-toxic Head: normocephalic, atraumatic Eyes: bilateral eye normal inspection, bilateral eye PERRL ENT: hearing grossly normal, normal pharynx, no angioedema, normal voice Neck: full range of motion, supple/symm/no masses Respiratory: chest non-tender, lungs clear, normal breath sounds, speaking full sentences Cardiovascular #1: regular rate, rhythm, no edema Cardiovascular #2: 2+ carotid (R), 2+ carotid (L), 2+ radial (R), 2+ radial (L) , 2+ dorsalis pedis (R), 2+ dorsalis pedis (L) Gastrointestinal: normal bowel sounds, non tender, soft, non-distended, no guarding, no rebound Rectal: deferred Genitourinary: normal inspection, no CVA tenderness Musculoskeletal: back normal, gait/station normal, normal range of motion, non- tender Neurologic: alert, oriented x3, responsive, motor strength/tone normal, sensory intact, speech normal Psychiatric: judgement/insight normal, memory normal, mood/affect normal, no suicidal/homicidal ideation Reflexes: 3+ bicep (R), 3+ bicep (L), 3+ tricep (R), 3+ tricep (L), 3+ knee (R) , 3+ knee (L) Skin: normal color, no rash, warm/dry, well hydrated Lymphatic: no adenopathy Medical Decision Making Diagnostic Impression: Primary Impression: Supratherapeutic INR Additional Impressions: Renal insufficiency Aortic valve replaced ER Course Hospital Course 87-year-old female presents to ED with elevated INR. History of aortic valve replacement Differential diagnoses include: head bleed, supratherpauetic INR, LGIB Clinical course Patient placed on stretcher. 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 After initial history and physical I ordered labs, EKG, CT head labs reviewed- no leukocytosis, hemoglobin/hematocrit ok, BUN/Cr elevated, INR > 10 EKG- paced rhythm, no acute ischemic changes interpreted by me CT brain-unremarkable Case discussed with Dr. Haines and he agreed to accept the patient to his service for further care and support I. I feel this is a highly complex case requiring extensive working including EKG/Rhythm strip, Xray/CT/US, Blood/urine lab work, repeat exams while in ED, and administration of strong opiates/narcotics for pain control, admission to hospital or close patient follow up. Diagnosis - supratherapeutic INR, renal insufficiency, aortic valve replaced admitted to telemetry in serious condition Labs Test 06/10/17 18:00 White Blood Count 7.6 K/UL (4.8-10.8) Red Blood Count 3.98 M/UL (4.20-5.40) Hemoglobin 11.9 G/DL (12.0-16.0) Hematocrit 37.1 % (37.0-47.0) Mean Corpuscular Volume 93 FL (80-99) Mean Corpuscular Hemoglobin 29.8 PG (27.0-31.0) Mean Corpuscular Hemoglobin Concent 32.0 G/DL (32.0-36.0) Red Cell Distribution Width 13.7 % (11.6-14.8) Platelet Count 228 K/UL (150-450) Mean Platelet Volume 7.3 FL (6.5-10.1) Neutrophils (%) (Auto) 71.5 % (45.0-75.0) Lymphocytes (%) (Auto) 17.5 % (20.0-45.0) Monocytes (%) (Auto) 8.8 % (1.0-10.0) Eosinophils (%) (Auto) 0.9 % (0.0-3.0) Basophils (%) (Auto) 1.3 % (0.0-2.0) Prothrombin Time > 100.0 SEC (9.30-11.50) Prothromb Time International Ratio > 10.0 (0.9-1.1) Activated Partial Thromboplast Time 62 SEC (23-33) Sodium Level 141 MMOL/L (136-145) Potassium Level 5.0 MMOL/L (3.5-5.1) Chloride Level 106 MMOL/L (98-107) Carbon Dioxide Level 30 MMOL/L (21-32) Anion Gap 5 mmol/L (5-15) Blood Urea Nitrogen 66 mg/dL (7-18) Creatinine 1.7 MG/DL (0.55-1.30) Estimat Glomerular Filtration Rate mL/min (>60) Glucose Level 106 MG/DL (74-106) Calcium Level 9.5 MG/DL (8.5-10.1) Total Bilirubin 0.2 MG/DL (0.2-1.0) Aspartate Amino Transf (AST/SGOT) 16 U/L (15-37) Alanine Aminotransferase (ALT/SGPT) 13 U/L (12-78) Alkaline Phosphatase 63 U/L (46-116) Total Protein 7.4 G/DL (6.4-8.2) Albumin 3.5 G/DL (3.4-5.0) Globulin 3.9 g/dL Albumin/Globulin Ratio 0.9 (1.0-2.7) EKG Diagnostic Results Rate: normal Rhythm: other - ventircular paced ST Segments: no acute changes ASA given to the pt in ED: No Rhythm Strip Diag. Results EP Interpretation: yes Rhythm: NSR, no PVC's, no ectopy CT/MRI/US Diagnostic Results CT/MRI/US Diagnostic Results : Imaging Test Ordered: CT Head Impression no acute process Last Vital Signs Date Time Temp Pulse Resp B/P (MAP) Pulse Ox O2 Delivery O2 Flow Rate FiO2 06/10/17 21:30 97.9 63 19 103/68 99 Room Air 97.9 Status: improved Disposition: ADMITTED INPATIENT Condition: Serious Referrals: NON PHYSICIAN (PCP) SHABBIR GALAVIZ M.D. Jun 10, 2017 22:42
[2017-06-10 23:10] VITALS: BP 130/59
[2017-06-11 04:00] VITALS: BP 109/51
[2017-06-11 08:00] VITALS: BP 128/55
--- NOTE | 2017-06-11 08:40 | Diagnostic Imaging Report ---
Indication: Altered mental status Technique: spiral acquisitions obtained through the brain. Angled axial and coronal 5 x 5 mm slices were reconstructed. No IV contrast utilized. Radiation dose was minimized using automated exposure control Total dose length product 1376.09 mGycm. CTDIvol(s) 70.38 mGy Comparison: 03/13/2011 FINDINGS: No acute hemorrhage or edema. No mass effect or midline shift. There is age-related enlargement of the ventricles and extra axial CSF spaces which has progressed since the prior exam. There is periventricular deep white matter ischemic change. Normal ortiz-white differentiation. There is evidence of prior bilateral ocular surgery. Visualized sinuses are unremarkable. Intact calvarium. IMPRESSION: Chronic and age-related changes. Negative for acute intracranial bleed or mass effect This agrees with the preliminary interpretation provided overnight by [facility] teleradiology service. The CT scanner at [facility] is accredited by the [employer] and the scans are performed using protocols designed to limit radiation exposure to as low as reasonably achievable to attain images of sufficient resolution adequate for diagnostic evaluation
[2017-06-11 08:52] LABS: BASOPHILS % (AUTO) 1.1 % (0.0-2.0); EOSINOPHILS % (AUTO) 1.8 % (0.0-3.0); HEMATOCRIT 32.5 % (37.0-47.0); HEMOGLOBIN 10.3 G/DL (12.0-16.0); LYMPHOCYTES % (AUTO) 19.3 % (20.0-45.0); MEAN CORPUSCULAR VOLUME 94 FL (80-99); MONOCYTES % (AUTO) 11.9 % (1.0-10.0); NEUTROPHILS % (AUTO) 65.9 % (45.0-75.0); PLATELET COUNT 186 K/UL (150-450); RED BLOOD COUNT 3.47 M/UL (4.20-5.40); RED CELL DISTRIBUTION WIDTH 13.5 % (11.6-14.8)
[2017-06-11] MEDS ORDERED: Lisinopril 20mg tab ORAL SCH (09:00)
[2017-06-11] MEDS ORDERED: Amiodarone 200mg tab ORAL SCH (09:00)
[2017-06-11] MEDS: Metoprolol Succinate XL 50mg tab ORAL SCH (09:05)
[2017-06-11 09:27] LABS: ALANINE AMINOTRANSFERASE 12 U/L (12-78); ALBUMIN 2.9 G/DL (3.4-5.0); ALBUMIN/GLOBULIN RATIO 0.8 (1.0-2.7); ALKALINE PHOSPHATASE 52 U/L (46-116); ANION GAP 6 mmol/L (5-15); ASPARTATE AMINO TRANSFERASE 14 U/L (15-37); BILIRUBIN,TOTAL 0.3 MG/DL (0.2-1.0); BLOOD UREA NITROGEN 59 mg/dL (7-18); CARBON DIOXIDE 29 MMOL/L (21-32); CHLORIDE 108 MMOL/L (98-107); CHOLESTEROL 122 MG/DL (< 200); CREATININE 1.5 MG/DL (0.55-1.30); HDL CHOLESTEROL 50 MG/DL (40-60); POTASSIUM 4.3 MMOL/L (3.5-5.1); SODIUM 143 MMOL/L (136-145); TRIGLYCERIDES 95 MG/DL (30-150)
[2017-06-11 12:00] VITALS: BP 114/23
--- NOTE | 2017-06-11 12:25 | Cardiology Progress Note ---
Assessment/Plan Assessment/Plan mod to sever mitral stenosis based on echo 01/2017 pulm htn History of aortic stenosis, status post bioprosthetic aortic valve replacement. Chronic atrial fibrillation. On therapy with Coumadin with over anticoagulation. Hypertension. Hyperlipidemia. 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 in future some vit k in diet repeat coags [id number] Objective Last 24 Hour Vital Signs Date Time Temp Pulse Resp B/P (MAP) Pulse Ox O2 Delivery O2 Flow Rate FiO2 06/11/17 09:05 60 128/55 06/11/17 09:05 128/55 06/11/17 09:05 60 128/55 06/11/17 08:00 97.7 60 18 128/55 95 Room Air 97.7 06/11/17 04:00 97.7 60 18 109/51 95 Room Air 97.7 06/11/17 04:00 60 06/11/17 00:00 60 06/10/17 23:17 69 06/10/17 23:15 97.9 60 20 101/61 97 Room Air 06/10/17 23:10 97.0 71 18 130/59 99 Room Air 97.0 06/10/17 21:30 97.9 63 19 103/68 99 Room Air 97.9 06/10/17 18:34 98.4 06/10/17 18:00 60 20 122/43 98 Room Air 06/10/17 17:08 98.4 80 16 118/62 94 Room Air 98.4 06/10/17 16:52 98.4 60 16 118/62 94 Room Air 98.4 Intake and Output 06/10/17 06/11/17 19:00 07:00 Intake Total 30 ml 30 ml Balance 30 ml 30 ml Intake Oral 30 ml 30 ml Laboratory Tests Test 06/10/17 18:00 06/11/17 08:19 White Blood Count 7.6 K/UL (4.8-10.8) 7.0 K/UL (4.8-10.8) Red Blood Count 3.98 M/UL (4.20-5.40) L 3.47 M/UL (4.20-5.40) L Hemoglobin 11.9 G/DL (12.0-16.0) L 10.3 G/DL (12.0-16.0) L Hematocrit 37.1 % (37.0-47.0) 32.5 % (37.0-47.0) L Mean Corpuscular Volume 93 FL (80-99) 94 FL (80-99) Mean Corpuscular Hemoglobin 29.8 PG (27.0-31.0) 29.6 PG (27.0-31.0) Mean Corpuscular Hemoglobin Concent 32.0 G/DL (32.0-36.0) 31.6 G/DL (32.0-36.0) L Red Cell Distribution Width 13.7 % (11.6-14.8) 13.5 % (11.6-14.8) Platelet Count 228 K/UL (150-450) 186 K/UL (150-450) Mean Platelet Volume 7.3 FL (6.5-10.1) 6.6 FL (6.5-10.1) Neutrophils (%) (Auto) 71.5 % (45.0-75.0) 65.9 % (45.0-75.0) Lymphocytes (%) (Auto) 17.5 % (20.0-45.0) L 19.3 % (20.0-45.0) L Monocytes (%) (Auto) 8.8 % (1.0-10.0) 11.9 % (1.0-10.0) H Eosinophils (%) (Auto) 0.9 % (0.0-3.0) 1.8 % (0.0-3.0) Basophils (%) (Auto) 1.3 % (0.0-2.0) 1.1 % (0.0-2.0) Prothrombin Time > 100.0 SEC (9.30-11.50) H Prothromb Time International Ratio > 10.0 (0.9-1.1) *H Activated Partial Thromboplast Time 62 SEC (23-33) H Sodium Level 141 MMOL/L (136-145) 143 MMOL/L (136-145) Potassium Level 5.0 MMOL/L (3.5-5.1) 4.3 MMOL/L (3.5-5.1) Chloride Level 106 MMOL/L (98-107) 108 MMOL/L (98-107) H Carbon Dioxide Level 30 MMOL/L (21-32) 29 MMOL/L (21-32) Anion Gap 5 mmol/L (5-15) 6 mmol/L (5-15) Blood Urea Nitrogen 66 mg/dL (7-18) H 59 mg/dL (7-18) H Creatinine 1.7 MG/DL (0.55-1.30) H 1.5 MG/DL (0.55-1.30) H Estimat Glomerular Filtration Rate mL/min (>60) mL/min (>60) Glucose Level 106 MG/DL (74-106) 85 MG/DL (74-106) Calcium Level 9.5 MG/DL (8.5-10.1) 9.0 MG/DL (8.5-10.1) Total Bilirubin 0.2 MG/DL (0.2-1.0) 0.3 MG/DL (0.2-1.0) Aspartate Amino Transf (AST/SGOT) 16 U/L (15-37) 14 U/L (15-37) L Alanine Aminotransferase (ALT/SGPT) 13 U/L (12-78) 12 U/L (12-78) Alkaline Phosphatase 63 U/L (46-116) 52 U/L (46-116) Total Protein 7.4 G/DL (6.4-8.2) 6.4 G/DL (6.4-8.2) Albumin 3.5 G/DL (3.4-5.0) 2.9 G/DL (3.4-5.0) L Globulin 3.9 g/dL 3.5 g/dL Albumin/Globulin Ratio 0.9 (1.0-2.7) L 0.8 (1.0-2.7) L Triglycerides Level 95 MG/DL (30-150) Cholesterol Level 122 MG/DL (< 200) LDL Cholesterol 59 mg/dL (<100) HDL Cholesterol 50 MG/DL (40-60) Cholesterol/HDL Ratio 2.4 (3.3-4.4) L Thyroid Stimulating Hormone (TSH) 0.970 uiU/mL (0.358-3.740) RICKY WAYNE 13, 2018 12:25
[2017-06-11] MEDS ORDERED: Phytonadione 10 mg/mL 1ml amp SUBQ ONE (12:45)
--- NOTE | 2017-06-11 12:45 | Consultation ---
History of Present Illness General Date patient seen: Jun 11, 2017 Chief Complaint: Abnormal Labs Present Illness HPI 87-year-old female with hx of AFib, CHF, aortic valve replacement presented to ED for evaluation of elevated INR. Patient is on Coumadin for aortic valve replacement. Was told that INR is greater than 14. The patient feels fine and denies any headache or weakness. She had some blood in her stool a few days ago. Denies chest pain or shortness of breath. No other aggravating or relieving factors. She is admitted to telemetry for further management. Allergies: Coded Allergies: No Known Allergies (Verified , 06/09/07) Medication History Scheduled Amiodarone Hcl* (Amiodarone Hcl*), 200 MG ORAL DAILY, (Reported) Amlodipine Besylate (Norvasc), 5 MG ORAL DAILY, (Reported) Amlodipine Besylate* (Amlodipine Besylate*), 2.5 MG ORAL EVERY 12 HOURS, ( Reported) Aspirin Ec* (Aspirin Ec*), 81 MG ORAL DAILY, (Reported) Docusate Sodium* (Docusate Sodium*), 100 MG ORAL DAILY, (Reported) Escitalopram Oxalate* (Lexapro*), 10 MG ORAL DAILY, (Reported) Furosemide* (Lasix*), 40 MG ORAL BID Lisinopril (Lisinopril*), 20 MG ORAL EVERY 12 HOURS, (Reported) Lisinopril* (Lisinopril*), 40 MG ORAL BID, (Reported) Metoprolol Succinate* (Metoprolol Succinate*), 50 MG ORAL DAILY, (Reported) Metoprolol Succinate* (Metoprolol Succinate*), 50 MG ORAL DAILY, (Reported) Montelukast Sodium* (Montelukast Sodium*), 10 MG ORAL DAILY, (Reported) Multivitamins* (Multivitamins*), 1 TAB ORAL DAILY, (Reported) Pantoprazole* (Protonix*), 40 MG ORAL DAILY, (Reported) Potassium Chloride (Potassium Chloride), 20 MEQ ORAL DAILY Pravastatin Sod (Pravachol), 80 MG ORAL BEDTIME, (Reported) Prednisone* (Prednisone*), 20 MG ORAL DAILY, (Reported) Ranitidine Hcl* (Zantac*), 150 MG ORAL TWICE A DAY, (Reported) [Warfarin Sod*], 3 MG PO DAILY, (Reported) Scheduled PRN Acetaminophen With Codeine (T#3) (Tylenol #3 Tab*), 1 TAB ORAL Q4H PRN for For Pain, (Reported) Clonidine Hcl (Clonidine Hcl), 0.1 MG PO for For High Blood Pressure, (Reported) [Alprazolam*], 0.25 MG PO DAILY PRN for For Anxiety, (Reported) Miscellaneous Medications Magnesium Oxide (Magnesium), 400 MG PO, (Reported) Patient History Healthcare decision maker Resuscitation status Full Code Advanced Directive on File Past Medical/Surgical History Past Medical/Surgical History: (1) Pacemaker (2) HTN (hypertension) (3) Pleural effusion Review of Systems All Other Systems: negative except mentioned in HPI Physical Exam General Appearance: cachetic Lines, tubes and drains: peripheral HEENT: normocephalic, atraumatic, anicteric Neck: non-tender, normal alignment Respiratory/Chest: chest wall non-tender, lungs clear, normal breath sounds Cardiovascular/Chest: normal peripheral pulses, normal rate Abdomen: normal bowel sounds, non tender Extremities: normal range of motion Last 24 Hour Vital Signs Date Time Temp Pulse Resp B/P (MAP) Pulse Ox O2 Delivery O2 Flow Rate FiO2 06/11/17 09:05 60 128/55 06/11/17 09:05 128/55 06/11/17 09:05 60 128/55 06/11/17 08:00 97.7 60 18 128/55 95 Room Air 97.7 06/11/17 04:00 97.7 60 18 109/51 95 Room Air 97.7 06/11/17 04:00 60 06/11/17 00:00 60 06/10/17 23:17 69 06/10/17 23:15 97.9 60 20 101/61 97 Room Air 06/10/17 23:10 97.0 71 18 130/59 99 Room Air 97.0 06/10/17 21:30 97.9 63 19 103/68 99 Room Air 97.9 06/10/17 18:34 98.4 06/10/17 18:00 60 20 122/43 98 Room Air 06/10/17 17:08 98.4 80 16 118/62 94 Room Air 98.4 06/10/17 16:52 98.4 60 16 118/62 94 Room Air 98.4 Intake and Output 06/10/17 06/11/17 19:00 07:00 Intake Total 30 ml 30 ml Balance 30 ml 30 ml Intake Oral 30 ml 30 ml Laboratory Tests Test 06/10/17 18:00 06/11/17 08:19 White Blood Count 7.6 K/UL (4.8-10.8) 7.0 K/UL (4.8-10.8) Red Blood Count 3.98 M/UL (4.20-5.40) L 3.47 M/UL (4.20-5.40) L Hemoglobin 11.9 G/DL (12.0-16.0) L 10.3 G/DL (12.0-16.0) L Hematocrit 37.1 % (37.0-47.0) 32.5 % (37.0-47.0) L Mean Corpuscular Volume 93 FL (80-99) 94 FL (80-99) Mean Corpuscular Hemoglobin 29.8 PG (27.0-31.0) 29.6 PG (27.0-31.0) Mean Corpuscular Hemoglobin Concent 32.0 G/DL (32.0-36.0) 31.6 G/DL (32.0-36.0) L Red Cell Distribution Width 13.7 % (11.6-14.8) 13.5 % (11.6-14.8) Platelet Count 228 K/UL (150-450) 186 K/UL (150-450) Mean Platelet Volume 7.3 FL (6.5-10.1) 6.6 FL (6.5-10.1) Neutrophils (%) (Auto) 71.5 % (45.0-75.0) 65.9 % (45.0-75.0) Lymphocytes (%) (Auto) 17.5 % (20.0-45.0) L 19.3 % (20.0-45.0) L Monocytes (%) (Auto) 8.8 % (1.0-10.0) 11.9 % (1.0-10.0) H Eosinophils (%) (Auto) 0.9 % (0.0-3.0) 1.8 % (0.0-3.0) Basophils (%) (Auto) 1.3 % (0.0-2.0) 1.1 % (0.0-2.0) Prothrombin Time > 100.0 SEC (9.30-11.50) H Prothromb Time International Ratio > 10.0 (0.9-1.1) *H Activated Partial Thromboplast Time 62 SEC (23-33) H Sodium Level 141 MMOL/L (136-145) 143 MMOL/L (136-145) Potassium Level 5.0 MMOL/L (3.5-5.1) 4.3 MMOL/L (3.5-5.1) Chloride Level 106 MMOL/L (98-107) 108 MMOL/L (98-107) H Carbon Dioxide Level 30 MMOL/L (21-32) 29 MMOL/L (21-32) Anion Gap 5 mmol/L (5-15) 6 mmol/L (5-15) Blood Urea Nitrogen 66 mg/dL (7-18) H 59 mg/dL (7-18) H Creatinine 1.7 MG/DL (0.55-1.30) H 1.5 MG/DL (0.55-1.30) H Estimat Glomerular Filtration Rate mL/min (>60) mL/min (>60) Glucose Level 106 MG/DL (74-106) 85 MG/DL (74-106) Calcium Level 9.5 MG/DL (8.5-10.1) 9.0 MG/DL (8.5-10.1) Total Bilirubin 0.2 MG/DL (0.2-1.0) 0.3 MG/DL (0.2-1.0) Aspartate Amino Transf (AST/SGOT) 16 U/L (15-37) 14 U/L (15-37) L Alanine Aminotransferase (ALT/SGPT) 13 U/L (12-78) 12 U/L (12-78) Alkaline Phosphatase 63 U/L (46-116) 52 U/L (46-116) Total Protein 7.4 G/DL (6.4-8.2) 6.4 G/DL (6.4-8.2) Albumin 3.5 G/DL (3.4-5.0) 2.9 G/DL (3.4-5.0) L Globulin 3.9 g/dL 3.5 g/dL Albumin/Globulin Ratio 0.9 (1.0-2.7) L 0.8 (1.0-2.7) L Triglycerides Level 95 MG/DL (30-150) Cholesterol Level 122 MG/DL (< 200) LDL Cholesterol 59 mg/dL (<100) HDL Cholesterol 50 MG/DL (40-60) Cholesterol/HDL Ratio 2.4 (3.3-4.4) L Thyroid Stimulating Hormone (TSH) 0.970 uiU/mL (0.358-3.740) Height (Feet): 5 Height (Inches): 3.00 Weight (Pounds): 116 Medications Current Medications Medications (Trade) Dose Ordered Sig/Fredy Route PRN Reason Start Time Stop Time Status Last Admin Dose Admin Acetaminophen (Tylenol) 650 mg Q4H PRN ORAL Mild Pain/Temp > 100.5 06/11/17 05:30 07/11/17 05:29 06/11/17 02:50 Al Hydroxide/Mg Hydroxide (Mylanta II) 30 ml Q6H PRN ORAL dyspepsia 06/10/17 21:30 07/10/17 21:29 Amlodipine Besylate (Norvasc) 5 mg DAILY ORAL 06/12/17 09:00 07/12/17 08:59 Dextrose (Dextrose 50%) STAT PRN IV Hypoglycemia 06/10/17 21:30 07/10/17 21:29 Escitalopram Oxalate (Lexapro) 10 mg DAILY ORAL 06/11/17 09:00 07/11/17 08:59 06/11/17 09:05 Furosemide (Lasix) 40 mg DAILY ORAL 06/12/17 09:00 07/12/17 08:59 Lorazepam (Ativan 2mg/ml 1ml) 0.5 mg Q4H PRN IV For Anxiety 06/10/17 21:30 06/17/17 21:29 Metoprolol Succinate (Toprol XL) 50 mg DAILY ORAL 06/11/17 09:00 07/11/17 08:59 06/11/17 09:05 Morphine Sulfate (Morphine Sulfate) 1 mg Q4H PRN IVP PAIN 4-10 06/10/17 21:30 06/17/17 21:29 Ondansetron HCl (Zofran) 4 mg Q6H PRN IVP Nausea & Vomiting 06/10/17 21:30 4/11/18 21:29 Polyethylene Glycol (Miralax) 17 gm HSPRN PRN ORAL Constipation 06/10/17 21:30 07/10/17 21:29 Pravastatin Sodium (Pravachol) 80 mg BEDTIME ORAL 06/11/17 21:00 07/11/17 20:59 Zolpidem Tartrate (Ambien) 5 mg HSPRN PRN ORAL Insomnia 06/10/17 21:30 06/17/17 21:29 Assessment/Plan Problem List: (1) Supratherapeutic INR ICD Codes: R79.1 - Abnormal coagulation profile SNOMED: 393790301 (2) Lower GI bleed ICD Codes: K92.2 - Gastrointestinal hemorrhage, unspecified SNOMED: 44671383 (3) HTN (hypertension) ICD Codes: I10 - Essential (primary) hypertension SNOMED: 50020645 (4) Major depression ICD Codes: F32.9 - Major depressive disorder, single episode, unspecified SNOMED: 56050661, 908768135 (5) Pacemaker ICD Codes: Z95.0 - Presence of cardiac pacemaker SNOMED: 499213025, 887094151 (6) Aortic valve replaced ICD Codes: Z95.2 - Presence of prosthetic heart valve SNOMED: 64726717, 143587162, 490220141, [id number] Assessment/Plan correct coagulopathy check INR cardio and hematology to see get cxr b/o hx of large pleural effusion in the past. GI evaluation for lower GI bleeding. Lilly Veras MD Jun 11, 2017 12:45
--- NOTE | 2017-06-11 15:24 | Diagnostic Imaging Report ---
Indication: Cough Technique: One view of the chest Comparison: 04/15/2013 Findings: There is a large right pleural effusion, which is similar in extent to that seen on the previous exam of 4 years earlier. The left pleural space is probably clear. There is generalized diffuse bilateral interstitial disease, likely similar to the previous study the heart size is normal. There is evidence of prior CABG. Interim placement of a left chest if focal pacemaker. Spinal fusion hardware is evident, not visualized previously. There is an old healed fracture deformity of the left shoulder and extensive secondary degenerative change of the glenoid Impression: Large right pleural effusion, presumably acute although similar to the previous study of 04/15/2013 Generalized interstitial disease. Suspect on the basis of acute interstitial edema, but similarity to prior exam raises possibility of significant component of chronic fibrotic change Other findings as noted
--- NOTE | 2017-06-11 15:30 | GI Initial Consult Note ---
Analy Nicholson N.P. 06/11/17 1530: History of Present Illness General Date patient seen: Jun 11, 2017 Time patient seen: 15:24 Reason for Hospitalization: Abnormal Labs Referring physician: HUBERT MAGAÑA Reason for Consultation: R/O LOWER GI BLEED Present Illness HPI 87-year-old female presents ED for evaluation. Patient referred for elevated INR. Patient is on Coumadin for aortic valve replacement. Was told that INR is greater than 14. Daughter at bedside. States the patient feels fine. Denies any headache or weakness. Did note some blood in her stool a few days ago. Denies chest pain or shortness of breath. No other aggravating or relieving factors. Denies any other associated symptoms. GI consulted r/o GI lower bleed. Pt seen on floor with caregiver at bedside. Pt had previous episode of rectal bleeding, now with no reported episodes since admission. She presents today with hypercoagulability and anemia. Denies any abdominal pain. No active s/sx of N/V. Unknown history of endoscopy / colonoscopy. Home Meds Active Scripts Potassium Chloride (POTASSIUM CHLORIDE) 10 Meq Tablet.er, 20 MEQ ORAL DAILY, # 30 TAB 0 Refills Prov:Yandel Haines MD 06/29/16 Furosemide* (LASIX*) 40 Mg Tablet, 40 MG ORAL BID for 30 Days, #60 TAB Prov:Yandel Haines MD 06/29/16 Reported Medications Magnesium Oxide (MAGNESIUM) 400 Mg Capsule, 400 MG PO, CAP 12/25/16 Prednisone* (PREDNISONE*) 20 Mg Tablet, 20 MG ORAL DAILY, TAB 0 Refills 12/25/16 Acetaminophen With Codeine (T#3) (TYLENOL #3 TAB*) Y Tab, 1 TAB ORAL Q4H Y for For Pain, TAB 12/25/16 Multivitamins* (MULTIVITAMINS*) 1 Each Tablet, 1 TAB ORAL DAILY, TAB 0 Refills 12/25/16 Clonidine Hcl (CLONIDINE HCL) 0.1 Mg Tablet, 0.1 MG PO Y for For High Blood Pressure, TAB 06/25/16 Pravastatin Sod (PRAVACHOL) 80 Mg Tablet, 80 MG ORAL BEDTIME, TAB 06/25/16 Pantoprazole* (PROTONIX*) 40 Mg Tablet.dr, 40 MG ORAL DAILY, TAB 06/25/16 [Warfarin Sod*] No Conflict Check, 3 MG PO DAILY 06/25/16 [Alprazolam*] No Conflict Check, 0.25 MG PO DAILY Y for For Anxiety 06/25/16 Amlodipine Besylate (Norvasc) 5 Mg Tab, 5 MG ORAL DAILY, TAB 04/27/14 Escitalopram Oxalate* (LEXAPRO*) 10 Mg Tablet, 10 MG ORAL DAILY, TAB 04/27/14 Lisinopril* (LISINOPRIL*) 40 Mg Tablet, 40 MG ORAL BID, TAB 04/27/14 Metoprolol Succinate* (METOPROLOL SUCCINATE*) 50 Mg Tab.er.24h, 50 MG ORAL DAILY , TAB 04/27/14 Docusate Sodium* (DOCUSATE SODIUM*) 100 Mg Capsule, 100 MG ORAL DAILY, CAP 04/27/14 Montelukast Sodium* (MONTELUKAST SODIUM*) 10 Mg Tablet, 10 MG ORAL DAILY, TAB 11/24/12 Lisinopril (LISINOPRIL*) 20 Mg Tablet, 20 MG ORAL EVERY 12 HOURS, TAB 11/24/12 Ranitidine Hcl* (ZANTAC*) 150 Mg Tablet, 150 MG ORAL TWICE A DAY, TAB 11/24/12 Amiodarone Hcl* (AMIODARONE HCL*) 400 Mg Tablet, 200 MG ORAL DAILY, TAB 11/24/12 Aspirin Ec* (ASPIRIN EC*) 81 Mg Tablet.dr, 81 MG ORAL DAILY, TAB 11/24/12 Amlodipine Besylate* (AMLODIPINE BESYLATE*) 2.5 Mg Tablet, 2.5 MG ORAL EVERY 12 HOURS, TAB 11/24/12 Metoprolol Succinate* (METOPROLOL SUCCINATE*) 50 Mg Tab.er.24h, 50 MG ORAL DAILY 11/24/12 Med list reviewed/reconciled: Yes Allergies: Coded Allergies: No Known Allergies (Verified , 06/09/07) Patient History History Provided By: Patient, Medical Record, Caregiver PMH Narrative Past Medical History: HTN, asthma, COPD Past Surgical History: none, other - aortic valve replacement Pertinent Family History: none Social History: Denies: smoking, alcohol use, drug use Now: No Immunizations: UTD Reviewed Nursing Documentation: PMH: Agreed, PSxH: Agreed Nursing Documentation-PMH Hx Cardiac Problems: Yes - Aortic Valve Replacement 4 months ago Hx Hypertension: Yes Hx Asthma: Yes Hx COPD: Yes Hx Cancer: No Hx Gastrointestinal Problems: No Hx Neurological Problems: No Social History: Denies: smoking, alcohol use, drug use, other Review of Systems All Other Systems: negative except mentioned in HPI Physical Exam Vital Signs Date Time Temp Pulse Resp B/P (MAP) Pulse Ox O2 Delivery O2 Flow Rate FiO2 06/10/17 16:52 98.4 60 16 118/62 94 Room Air 98.4 Sp02 EP Interpretation: reviewed, normal Labs Laboratory Tests Test 06/10/17 18:00 06/11/17 08:19 White Blood Count 7.6 K/UL (4.8-10.8) 7.0 K/UL (4.8-10.8) Red Blood Count 3.98 M/UL (4.20-5.40) L 3.47 M/UL (4.20-5.40) L Hemoglobin 11.9 G/DL (12.0-16.0) L 10.3 G/DL (12.0-16.0) L Hematocrit 37.1 % (37.0-47.0) 32.5 % (37.0-47.0) L Mean Corpuscular Volume 93 FL (80-99) 94 FL (80-99) Mean Corpuscular Hemoglobin 29.8 PG (27.0-31.0) 29.6 PG (27.0-31.0) Mean Corpuscular Hemoglobin Concent 32.0 G/DL (32.0-36.0) 31.6 G/DL (32.0-36.0) L Red Cell Distribution Width 13.7 % (11.6-14.8) 13.5 % (11.6-14.8) Platelet Count 228 K/UL (150-450) 186 K/UL (150-450) Mean Platelet Volume 7.3 FL (6.5-10.1) 6.6 FL (6.5-10.1) Neutrophils (%) (Auto) 71.5 % (45.0-75.0) 65.9 % (45.0-75.0) Lymphocytes (%) (Auto) 17.5 % (20.0-45.0) L 19.3 % (20.0-45.0) L Monocytes (%) (Auto) 8.8 % (1.0-10.0) 11.9 % (1.0-10.0) H Eosinophils (%) (Auto) 0.9 % (0.0-3.0) 1.8 % (0.0-3.0) Basophils (%) (Auto) 1.3 % (0.0-2.0) 1.1 % (0.0-2.0) Prothrombin Time > 100.0 SEC (9.30-11.50) H Prothromb Time International Ratio > 10.0 (0.9-1.1) *H Activated Partial Thromboplast Time 62 SEC (23-33) H Sodium Level 141 MMOL/L (136-145) 143 MMOL/L (136-145) Potassium Level 5.0 MMOL/L (3.5-5.1) 4.3 MMOL/L (3.5-5.1) Chloride Level 106 MMOL/L (98-107) 108 MMOL/L (98-107) H Carbon Dioxide Level 30 MMOL/L (21-32) 29 MMOL/L (21-32) Anion Gap 5 mmol/L (5-15) 6 mmol/L (5-15) Blood Urea Nitrogen 66 mg/dL (7-18) H 59 mg/dL (7-18) H Creatinine 1.7 MG/DL (0.55-1.30) H 1.5 MG/DL (0.55-1.30) H Estimat Glomerular Filtration Rate mL/min (>60) mL/min (>60) Glucose Level 106 MG/DL (74-106) 85 MG/DL (74-106) Calcium Level 9.5 MG/DL (8.5-10.1) 9.0 MG/DL (8.5-10.1) Total Bilirubin 0.2 MG/DL (0.2-1.0) 0.3 MG/DL (0.2-1.0) Aspartate Amino Transf (AST/SGOT) 16 U/L (15-37) 14 U/L (15-37) L Alanine Aminotransferase (ALT/SGPT) 13 U/L (12-78) 12 U/L (12-78) Alkaline Phosphatase 63 U/L (46-116) 52 U/L (46-116) Total Protein 7.4 G/DL (6.4-8.2) 6.4 G/DL (6.4-8.2) Albumin 3.5 G/DL (3.4-5.0) 2.9 G/DL (3.4-5.0) L Globulin 3.9 g/dL 3.5 g/dL Albumin/Globulin Ratio 0.9 (1.0-2.7) L 0.8 (1.0-2.7) L Triglycerides Level 95 MG/DL (30-150) Cholesterol Level 122 MG/DL (< 200) LDL Cholesterol 59 mg/dL (<100) HDL Cholesterol 50 MG/DL (40-60) Cholesterol/HDL Ratio 2.4 (3.3-4.4) L Thyroid Stimulating Hormone (TSH) 0.970 uiU/mL (0.358-3.740) General Appearance: well appearing, no apparent distress, alert Head: normocephalic EENT: PERRL/EOMI, normal ENT inspection Neck: supple Respiratory: normal breath sounds, no respiratory distress Cardiovascular: normal rate Gastrointestinal: normal inspection, non tender, soft, normal bowel sounds, non -distended Rectal: deferred Genitourinary: no CVA tenderness Musculoskeletal: normal inspection, back normal Neurologic: normal inspection, alert, oriented x3, responsive Psychiatric: normal inspection, judgement/insight normal, memory normal Skin: normal inspection, normal color, no rash, warm/dry, palpation normal, well hydrated Lymphatic: normal inspection, no adenopathy Current Medications Current Medications Medications (Trade) Dose Ordered Sig/Fredy Route PRN Reason Start Time Stop Time Status Last Admin Dose Admin Acetaminophen (Tylenol) 650 mg Q4H PRN ORAL Mild Pain/Temp > 100.5 06/11/17 05:30 07/11/17 05:29 06/11/17 02:50 Al Hydroxide/Mg Hydroxide (Mylanta II) 30 ml Q6H PRN ORAL dyspepsia 06/10/17 21:30 07/10/17 21:29 Amlodipine Besylate (Norvasc) 5 mg DAILY ORAL 06/12/17 09:00 07/12/17 08:59 Dextrose (Dextrose 50%) STAT PRN IV Hypoglycemia 06/10/17 21:30 07/10/17 21:29 Escitalopram Oxalate (Lexapro) 10 mg DAILY ORAL 3/13/18 09:00 07/11/17 08:59 06/11/17 09:05 Furosemide (Lasix) 40 mg DAILY ORAL 06/12/17 09:00 07/12/17 08:59 Lorazepam (Ativan 2mg/ml 1ml) 0.5 mg Q4H PRN IV For Anxiety 06/10/17 21:30 06/17/17 21:29 Metoprolol Succinate (Toprol XL) 50 mg DAILY ORAL 06/11/17 09:00 07/11/17 08:59 06/11/17 09:05 Morphine Sulfate (Morphine Sulfate) 1 mg Q4H PRN IVP PAIN 4-10 06/10/17 21:30 06/17/17 21:29 Ondansetron HCl (Zofran) 4 mg Q6H PRN IVP Nausea & Vomiting 06/10/17 21:30 07/10/17 21:29 Polyethylene Glycol (Miralax) 17 gm HSPRN PRN ORAL Constipation 06/10/17 21:30 07/10/17 21:29 Pravastatin Sodium (Pravachol) 80 mg BEDTIME ORAL 06/11/17 21:00 07/11/17 20:59 Zolpidem Tartrate (Ambien) 5 mg HSPRN PRN ORAL Insomnia 06/10/17 21:30 06/17/17 21:29 GI: Plan Problems: (1) Lower GI bleed (2) Supratherapeutic INR (3) Aortic valve replaced (4) Back pain Plan colonoscopy if necessary correct wafarin over-anticoagulation monitor H&H, prn transfusions OB stool x 3 regular diet ppi fu labs, coags Discussed with Dr. Moore. Thank you for this patient referral, we will follow. TEMO MOORE 06/18/17 1237: History of Present Illness General Reason for Hospitalization: Abnormal Labs Present Illness Home Meds Active Scripts Potassium Chloride (POTASSIUM CHLORIDE) 10 Meq Tablet.er, 20 MEQ ORAL DAILY, # 30 TAB 0 Refills Prov:Yandel Haines MD 06/29/16 Furosemide* (LASIX*) 40 Mg Tablet, 40 MG ORAL BID for 30 Days, #60 TAB Prov:Yandel Haines MD 06/29/16 Reported Medications Magnesium Oxide (MAGNESIUM) 400 Mg Capsule, 400 MG PO, CAP 12/25/16 Prednisone* (PREDNISONE*) 20 Mg Tablet, 20 MG ORAL DAILY, TAB 0 Refills 12/25/16 Acetaminophen With Codeine (T#3) (TYLENOL #3 TAB*) Y Tab, 1 TAB ORAL Q4H Y for For Pain, TAB 12/25/16 Multivitamins* (MULTIVITAMINS*) 1 Each Tablet, 1 TAB ORAL DAILY, TAB 0 Refills 12/25/16 Clonidine Hcl (CLONIDINE HCL) 0.1 Mg Tablet, 0.1 MG PO Y for For High Blood Pressure, TAB 06/25/16 Pravastatin Sod (PRAVACHOL) 80 Mg Tablet, 80 MG ORAL BEDTIME, TAB 06/25/16 Pantoprazole* (PROTONIX*) 40 Mg Tablet.dr, 40 MG ORAL DAILY, TAB 06/25/16 [Warfarin Sod*] No Conflict Check, 3 MG PO DAILY 06/25/16 [Alprazolam*] No Conflict Check, 0.25 MG PO DAILY Y for For Anxiety 06/25/16 Amlodipine Besylate (Norvasc) 5 Mg Tab, 5 MG ORAL DAILY, TAB 04/27/14 Escitalopram Oxalate* (LEXAPRO*) 10 Mg Tablet, 10 MG ORAL DAILY, TAB 04/27/14 Lisinopril* (LISINOPRIL*) 40 Mg Tablet, 40 MG ORAL BID, TAB 04/27/14 Metoprolol Succinate* (METOPROLOL SUCCINATE*) 50 Mg Tab.er.24h, 50 MG ORAL DAILY , TAB 04/27/14 Docusate Sodium* (DOCUSATE SODIUM*) 100 Mg Capsule, 100 MG ORAL DAILY, CAP 04/27/14 Montelukast Sodium* (MONTELUKAST SODIUM*) 10 Mg Tablet, 10 MG ORAL DAILY, TAB 11/24/12 Lisinopril (LISINOPRIL*) 20 Mg Tablet, 20 MG ORAL EVERY 12 HOURS, TAB 11/24/12 Ranitidine Hcl* (ZANTAC*) 150 Mg Tablet, 150 MG ORAL TWICE A DAY, TAB 11/24/12 Amiodarone Hcl* (AMIODARONE HCL*) 400 Mg Tablet, 200 MG ORAL DAILY, TAB 11/24/12 Aspirin Ec* (ASPIRIN EC*) 81 Mg Tablet.dr, 81 MG ORAL DAILY, TAB 11/24/12 Amlodipine Besylate* (AMLODIPINE BESYLATE*) 2.5 Mg Tablet, 2.5 MG ORAL EVERY 12 HOURS, TAB 11/24/12 Metoprolol Succinate* (METOPROLOL SUCCINATE*) 50 Mg Tab.er.24h, 50 MG ORAL DAILY 11/24/12 Allergies: Coded Allergies: No Known Allergies (Verified , 06/09/07) GI: Plan Plan The patient was seen and examined at bedside and all new and available data was reviewed in the patients chart. I agree with the above findings, impression and plan. (Patient seen earlier today. Signature stamp does not reflect patient encounter time.). - MD [facility] Rodney Chavis Jun 11, 2017 15:30 TEMO MOORE Jun 18, 2017 12:37
[2017-06-11 16:00] VITALS: BP 113/53
[2017-06-11 16:09] LABS: HEMATOCRIT 31.2 % (37.0-47.0); HEMOGLOBIN 10.1 G/DL (12.0-16.0); LYMPHOCYTES % (AUTO) 16.2 % (20.0-45.0); MEAN CORPUSCULAR VOLUME 92 FL (80-99); MONOCYTES % (AUTO) 11.1 % (1.0-10.0); NEUTROPHILS % (AUTO) 71.7 % (45.0-75.0); PLATELET COUNT 182 K/UL (150-450); RED BLOOD COUNT 3.39 M/UL (4.20-5.40); RED CELL DISTRIBUTION WIDTH 13.1 % (11.6-14.8); WHITE BLOOD COUNT 7.5 K/UL (4.8-10.8)
[2017-06-11 16:28] LABS: ALANINE AMINOTRANSFERASE 10 U/L (12-78); ALBUMIN 2.8 G/DL (3.4-5.0); ALBUMIN/GLOBULIN RATIO 0.8 (1.0-2.7); ALKALINE PHOSPHATASE 53 U/L (46-116); ANION GAP 4 mmol/L (5-15); ASPARTATE AMINO TRANSFERASE 15 U/L (15-37); BILIRUBIN,TOTAL 0.2 MG/DL (0.2-1.0); BLOOD UREA NITROGEN 58 mg/dL (7-18); CARBON DIOXIDE 29 MMOL/L (21-32); CHLORIDE 108 MMOL/L (98-107); CREATININE 1.5 MG/DL (0.55-1.30); POTASSIUM 4.5 MMOL/L (3.5-5.1); SODIUM 141 MMOL/L (136-145)
[2017-06-11 16:34] LABS: INR > 10.0 (0.9-1.1)
--- NOTE | 2017-06-11 17:33 | Cardiology Report ---
APPROVED REPORT EXAM: Two-dimensional and M-mode echocardiogram with Doppler and color Doppler. INDICATION Mitral valve disorder M-Mode DIMENSIONS IVSd1.0 (0.7-1.1cm)Left Atrium (MM)4.7 (1.6-4.0cm) LVDd4.2 (3.5-5.6cm)Aortic Root2.6 (2.0-3.7cm) PWd0.9 (0.7-1.1cm)Aortic Cusp Exc.1.5 (1.5-2.0cm) IVSs0.9 cm LVDs2.6 (2.5-4.0cm) PWs1.0 cm Normal left ventricular chamber size, systolic function and wall motion. Left ventricular ejection fraction estimated to be 55-60 %. No evidence of left ventricular hypertrophy. No evidence of pericardial or pleural effusion. Right cardiac chamber sizes are within normal limits. Mild left atrial enlargement by 2D. Bioprothetic aortic valve with adequate cusp excursion. Thickened mitral valve leaflets with some restriction inf valve movement , increased echoes at the mitral annulus likley a ring Aortic root calcification. Pulmonic valve is well visualized. Normal tricuspid valve structure. IVC is normal in size with no physiological collapse with respiration indicate increased RA pressure. Pacoing wire in the right heart noted A color flow and spectral Doppler study was performed and revealed: Mild aortic regurgitation. Moderate mitral regurgitation. Mitral P1/2 time of 136 m/s is compatible with a mitral valve area of 1.6 cm2 Peak mitral valve diastolic gradient of 24 mmHg and a mean gradient of 7 mmHg c/w moderate mitral stenosis ModerateTricuspid systolic velocities suggests peak right ventricular systolic pressure of 64-69 mmHg Consistent with severe pulmonary hypeertension. Pulmonic regurgitation present.
--- NOTE | 2017-06-11 17:38 | Cardiology Report ---
APPROVED REPORT EKG Measurement Heart [id number] afib ventricular pacing
--- NOTE | 2017-06-11 19:45 | Consultation ---
DATE OF CONSULTATION: 06/11/2017 CARDIOLOGY CONSULTATION CONSULTING PHYSICIAN: Shay Doran M.D. REFERRING PHYSICIANS: 1. Lilly Veras M.D. 2. Yandel Haines M.D. REASON FOR REFERRAL: Coagulopathy in the setting of aortic valve replacement. HISTORY OF PRESENT ILLNESS: This is an elderly female, whose information is obtained from the patient's chart here at [facility] as well as review of chart at [facility]. She has recently been hospitalized at [facility]. She is followed by Dr. Little from a cardiac point of view and presented to the hospital because her coagulation factors that were checked at home were significantly elevated with INR greater than 14 and the patient was admitted to the hospital. According to her backup administrative coordinator, she did have some bloody stools apparently recently and she has had some back pains as well, for which she has been hospitalized. The patient does not have any chest pain or shortness of breath. No PND. No orthopnea. No palpitation. No dizziness or lightheadedness. Her backup administrative coordinator does indicate that recently she has had some episodes of dizziness. PAST MEDICAL HISTORY: Positive for history of permanent atrial fibrillation, history of hypertension, hyperlipidemia, status post permanent pacemaker implantation, and arthritis. She has had history of aortic valve replacement for aortic stenosis with mechanical valve that was replaced; history of coronary artery disease; bilateral pleural effusion, status post thoracentesis; moderate pulmonary hypertension; history of falls with right third rib fracture as well as proximal humeral fractures and pubic ramus fractures previously and has had compression fractures of the lumbar spine recently, for which she was hospitalized and was followed by Pain Management and she underwent kyphoplasty, tolerated the procedure well apparently recently. She has sick sinus syndrome, status post permanent pacemaker implantation as well. History of hyperlipidemia, history of left scapula fracture, history of diskectomy as well as congestive heart failure, renal cysts, cervical radiculopathy, mitral stenosis of mild degree, and epidural nerve blocks have previously been performed as well. ALLERGIES: She has no known drug allergies. SOCIAL HISTORY: She does not smoke or drink alcoholic beverages. No drug use. She lives at home. She has got a 24-hour backup administrative coordinator at home. REVIEW OF SYSTEMS: GASTROINTESTINAL: She denies any nausea, vomiting, diarrhea, or constipation. She denies any black or bloody stools, contrary to what the backup administrative coordinator does indicate she has had one episode of bloody stools. GENITOURINARY: She does not have discomfort on urination. No blood in the urine. PULMONARY: She denies any coughing or wheezing. CONSTITUTIONAL: She denies any fever, chills, or night sweats. MUSCULOSKELETAL: She has pain on the right side of her back when she sits. PHYSICAL EXAMINATION: GENERAL: Shows her to be elderly female, in no respiratory distress. VITAL SIGNS: Blood pressure 128/55 with heart rate of 60 and temperature 97.7 degrees. HEENT: Unremarkable. NECK: Supple. No jugular venous distention. LUNGS: Appear to be clear to auscultation and percussion. CARDIAC: Regular rhythm. Faint systolic ejection murmur noted. ABDOMEN: Soft and nontender. Positive bowel sounds. EXTREMITIES: There is no edema and no clubbing or cyanosis. LABORATORY AND DIAGNOSTIC DATA: White count of 7, hemoglobin 10.3, and platelet count of 186. Her hemoglobin yesterday was 11.9. Sodium is 143, potassium 4.3, chloride 108, bicarbonate 29, and BUN of 59 creatinine 1.5, down from 66 and 1.7. Albumin of 2.9. Total cholesterol 122 with TSH of 0.97. INR greater than 10. She has had a CT scan of her head that was performed yesterday that showed chronic age-related changes, negative for acute intracranial bleeds or mass effects and her electrocardiogram, atrial fibrillation with ventricular pacing. There is no chest x-ray available for me to review. Telemetry shows atrial fibrillation with V-pacing. Review of [facility] data shows the patient's last echocardiogram was performed in January 2017, ejection fraction was 66%, mildly depressed RV systolic function, moderate to severe mitral stenosis with moderate mitral regurgitation, peak transmitral gradient of 30, mean gradient of 10, bioprosthetic aortic valve replacement with peak gradient of 25, mean of 14, pulmonary artery systolic pressure of 59 and dilated IVC. ASSESSMENT AND PLAN: 1. Coagulopathy, presumed to be secondary to Coumadin possible interaction with other medications. 2. Aortic valve replacement previously for aortic stenosis. 3. Atrial fibrillation, permanent. 4. Sick sinus syndrome status post permanent pacemaker implantation. 5. Recent fall and injury with lumbar spine compression fracture status post kyphoplasty. 6. History of previous multiple falls. 7. Reported history of coronary artery disease. 8. History of pleural effusion. 9. Moderate to severe mitral stenosis. This patient was seen in cardiac consultation. The patient has already had a CT scan of her brain that was negative. She does have coagulopathy, which I suspect likely related to her interaction with medications. On last hospitalization, the patient was prescribed Tylenol with codeine, albuterol, amlodipine 5 mg, clonidine as needed for elevated blood pressure, Lomotil, Colace, Flovent, Lasix 40 mg in the evening, Lexapro, metoprolol 25 mg, multivitamins, nitroglycerin, Protonix, potassium, Pravachol, Aldactone, tramadol, and Coumadin as well as . She will need to be off the Coumadin. I would probably prescribe her to have some low dose of vitamin K if she has not received any and possibly some green vegetables. She does not have a prosthetic aortic valve here. Atrial fibrillation is the main indication for her anticoagulation. The patient does have significant amount of mitral stenosis, however, does not appear to be significantly symptomatic from that at this time and she is followed by Dr. Little and that could be addressed with him in the future. Shay Doran M.D. DR: CHARLENE JOB#: [id number] CC:
--- NOTE | 2017-06-11 19:58 | History & Physical ---
History and Physical History & Physicial Dictated for Int Med-Dr Haines no. [id number]. LEWIS ROBERTSON Jun 11, 2017 19:58
[2017-06-11 20:00] VITALS: BP 119/49
--- NOTE | 2017-06-11 23:00 | History and Physical Report ---
DATE OF ADMISSION: 06/10/2017 CHIEF COMPLAINT: The patient is an 87-year-old, [place] female, who presents with chief complaint of over anticoagulation, presents with chief complaint of abnormal labs. HISTORY OF PRESENT ILLNESS: The patient has a history of aortic valve replacement. The patient is on Coumadin. According the patient's daughter, the patient was told that she had an elevated INR. The patient was told her INR was greater than 14. The patient presented to [facility]. The patient was found to have INR greater than 10. The patient was admitted for over anticoagulation. PAST MEDICAL HISTORY: Significant for: 1. Hypertension. 2. Congestive heart failure. 3. History of pleural effusion. PAST SURGICAL HISTORY: Significant for: 1. Aortic valve replacement. 2. Pacemaker implantation. CURRENT MEDICATIONS: 1. Tylenol No. 3 one tablet p.o. q.4 h. p.r.n. 2. Amiodarone 200 mg p.o. daily. 3. Amlodipine 5 mg p.o. daily. 4. Aspirin 81 mg p.o. daily. 5. Clonidine 0.1 mg p.o. p.r.n. 6. Lexapro 10 mg p.o. daily. 7. Lasix 40 mg p.o. twice daily. 8. Lisinopril 20 mg p.o. twice daily. 9. Metoprolol 50 mg p.o. daily. 10. Singulair 10 mg p.o. daily. 11. Protonix 40 mg p.o. daily. 12. Pravachol 80 mg p.o. daily. 13. Prednisone 20 mg p.o. daily. 14. Zantac 150 mg p.o. twice daily. 15. Xanax 0.25 mg p.o. p.r.n. 16. Coumadin 3 mg p.o. daily. ALLERGIES: No known drug allergies. SOCIAL HISTORY: The patient lives at home with a 24-hour caregiver. The patient is a . The patient denies tobacco or alcohol use. REVIEW OF SYSTEMS: Unable to assess secondary to the patient's mental status. PHYSICAL EXAMINATION: VITAL SIGNS: Temperature 97.7 degrees, respirations 18, pulse 60, and blood pressure 109/51. GENERAL: The patient is a well-developed, well-nourished, [place] female, in no apparent distress. HEENT: Eyes, pupils equal and responsive to light and accommodation. Extraocular movements are intact. NECK: Supple without lymphadenopathy. CHEST: Lungs are clear to auscultation bilaterally without wheezes or rales. CARDIOVASCULAR: Regular rhythm and rate. S1 and S2 are normal without murmurs, rubs, or gallops. ABDOMEN: Soft, nontender, and nondistended. Positive bowel sounds. No evidence of hepatosplenomegaly. Currently, no rebound or guarding noted. RECTAL: Refused. GENITAL: Refused. EXTREMITIES: Negative for clubbing, cyanosis, or edema. NEUROLOGIC: Cranial nerves II through XII are grossly intact without focal deficits. Motor strength is 5/5 bilaterally intact. Deep tendon reflexes are 2+ plantar. LABORATORY STUDIES: WBC 7.6, hemoglobin 11.9, hematocrit 37.1, and platelets 220,000. Sodium 141, potassium 5.0, chloride 106, CO2 30, BUN 66, creatinine 1.7, and glucose 106. ProTime greater than 100. INR greater than 10. ASSESSMENT: This is an 87-year-old Czech female with: 1. Over anticoagulation. 2. Hypertension. 3. Atrial fibrillation. 4. Congestive heart failure. 5. History of aortic valve replacement. TREATMENT: 1. Over anticoagulation. Hematology and Oncology consultation has been obtained with Dr. Lin. The patient has been started on vitamin K. Serial ProTime will be performed. We will follow recommendations of Hematology. 2. Hypertension. Continue amlodipine and furosemide as above. 3. Atrial fibrillation. A Cardiology consultation has been obtained with Dr. Doran. Continue amiodarone as above. 4. Congestive heart failure. An echocardiogram is pending. A Cardiology consultation has been obtained with Dr. Shay Doran. 5. History of aortic valve replacement. Aaron Quintero M.D. DR: Javan JOB#: [id number] CC:
[2017-06-12] VITALS: BP 105/60
[2017-06-12 04:00] VITALS: BP 111/59
[2017-06-12 08:00] VITALS: BP 112/54
[2017-06-12 08:18] LABS: BASOPHILS % (AUTO) 1.1 % (0.0-2.0); EOSINOPHILS % (AUTO) 0.7 % (0.0-3.0); HEMATOCRIT 30.3 % (37.0-47.0); HEMOGLOBIN 9.9 G/DL (12.0-16.0); LYMPHOCYTES % (AUTO) 16.6 % (20.0-45.0); MEAN CORPUSCULAR VOLUME 93 FL (80-99); MONOCYTES % (AUTO) 11.7 % (1.0-10.0); PLATELET COUNT 175 K/UL (150-450); RED BLOOD COUNT 3.25 M/UL (4.20-5.40); RED CELL DISTRIBUTION WIDTH 13.1 % (11.6-14.8); WHITE BLOOD COUNT 7.3 K/UL (4.8-10.8)
[2017-06-12 08:27] LABS: INR 4.9 (0.9-1.1)
[2017-06-12 08:37] LABS: ALANINE AMINOTRANSFERASE 11 U/L (12-78); ALBUMIN 2.8 G/DL (3.4-5.0); ALBUMIN/GLOBULIN RATIO 0.9 (1.0-2.7); ALKALINE PHOSPHATASE 50 U/L (46-116); ANION GAP 4 mmol/L (5-15); ASPARTATE AMINO TRANSFERASE 13 U/L (15-37); BILIRUBIN,TOTAL 0.3 MG/DL (0.2-1.0); BLOOD UREA NITROGEN 50 mg/dL (7-18); CALCIUM 8.7 MG/DL (8.5-10.1); CARBON DIOXIDE 30 MMOL/L (21-32); CHLORIDE 109 MMOL/L (98-107); CREATININE 1.2 MG/DL (0.55-1.30); PHOSPHORUS 3.4 MG/DL (2.5-4.9); POTASSIUM 4.3 MMOL/L (3.5-5.1); SODIUM 143 MMOL/L (136-145)
[2017-06-12] MEDS: Metoprolol Succinate XL 50mg tab ORAL SCH (08:43)
[2017-06-12] MEDS ORDERED: Furosemide 40mg tab ORAL SCH (09:00)
--- NOTE | 2017-06-12 09:30 | Consultation ---
Consult Note Consult Note asked to eval for renal failure 87-year-old female presents ED for evaluation. Patient referred for elevated INR. Patient is on Coumadin for aortic valve replacement. Was told that INR is greater than 14. Daughter at bedside. States the patient feels fine. Denies any headache or weakness. Did note some blood in her stool a few days ago. Denies chest pain or shortness of breath. No other aggravating or relieving factors. Denies any other associated symptoms interviewed examined data reviewed Assessment/Plan Presented with Cr 1.7 , now Cr lower- Acute renal failure likely dehydration other conditions: - Coagulopathy, presumed to be secondary to Coumadin possible interaction with other medications. - Aortic valve replacement previously for aortic stenosis. - Atrial fibrillation, permanent. - Sick sinus syndrome status post permanent pacemaker implantation. - Recent fall and injury with lumbar spine compression fracture status post kyphoplasty. History of previous multiple falls. - Reported history of coronary artery disease. - History of pleural effusion. - Moderate to severe mitral stenosis. - Anemia - HTN - Depression Anemia workup- UA U Na Monitor renal parameters KAYLA EVERETT Jun 12, 2017 09:30
[2017-06-12 10:10] LABS: CREATINE KINASE 21 U/L (26-308); FERRITIN 110 NG/ML (8-388); GAMMA GLUTAMYL TRANSPEPTIDASE 14 U/L (5-85)
--- NOTE | 2017-06-12 10:20 | GI Progress Note ---
Assessment/Plan Problems: (1) Supratherapeutic INR ICD Codes: R79.1 - Abnormal coagulation profile SNOMED: 074573622 (2) Abdominal pain (3) Lower GI bleed ICD Codes: K92.2 - Gastrointestinal hemorrhage, unspecified SNOMED: 86761783 Status: stable, progressing Status Narrative Discussed with Dr. Tucker. Assessment/Plan defer GI procedures, stable H&H >> LGIB most likely from hypercoagulation 2/2 warfarin correct supratherapeutic INR monitor H&H, prn transfusions OB stool x 3 regular diet ppi fu labs, coags Subjective Subjective no symptoms ambulating had BM, no noted blood Objective Last 24 Hour Vital Signs Date Time Temp Pulse Resp B/P (MAP) Pulse Ox O2 Delivery O2 Flow Rate FiO2 06/12/17 08:43 60 112/54 06/12/17 08:43 60 112/54 06/12/17 08:00 97.9 60 20 112/54 99 Room Air 97.9 06/12/17 04:00 97.1 66 19 111/59 97 Room Air 97.1 06/12/17 04:00 60 06/12/17 00:00 97.7 61 19 105/60 98 Room Air 97.7 06/12/17 00:00 76 06/11/17 20:00 98.1 68 19 119/49 96 Room Air 98.1 06/11/17 20:00 76 06/11/17 16:00 97.7 63 20 113/53 99 Room Air 97.7 06/11/17 16:00 60 06/11/17 12:00 98.1 61 18 114/23 97 Room Air 98.1 06/11/17 12:00 60 Intake and Output 06/11/17 06/12/17 19:00 07:00 Intake Total 720 ml Output Total 375 ml Balance 720 ml -375 ml Intake Oral 720 ml Output Urine Total 375 ml # Voids 3 # Bowel Movements 2 Laboratory Tests Test 06/11/17 15:30 06/12/17 06:27 06/12/17 06:37 White Blood Count 7.5 K/UL (4.8-10.8) 7.3 K/UL (4.8-10.8) Red Blood Count 3.39 M/UL (4.20-5.40) L 3.25 M/UL (4.20-5.40) L Hemoglobin 10.1 G/DL (12.0-16.0) L 9.9 G/DL (12.0-16.0) L Hematocrit 31.2 % (37.0-47.0) L 30.3 % (37.0-47.0) L Mean Corpuscular Volume 92 FL (80-99) 93 FL (80-99) Mean Corpuscular Hemoglobin 29.9 PG (27.0-31.0) 30.5 PG (27.0-31.0) Mean Corpuscular Hemoglobin Concent 32.4 G/DL (32.0-36.0) 32.8 G/DL (32.0-36.0) Red Cell Distribution Width 13.1 % (11.6-14.8) 13.1 % (11.6-14.8) Platelet Count 182 K/UL (150-450) 175 K/UL (150-450) Mean Platelet Volume 6.9 FL (6.5-10.1) 6.9 FL (6.5-10.1) Neutrophils (%) (Auto) 71.7 % (45.0-75.0) 70.0 % (45.0-75.0) Lymphocytes (%) (Auto) 16.2 % (20.0-45.0) L 16.6 % (20.0-45.0) L Monocytes (%) (Auto) 11.1 % (1.0-10.0) H 11.7 % (1.0-10.0) H Eosinophils (%) (Auto) 0.0 % (0.0-3.0) 0.7 % (0.0-3.0) Basophils (%) (Auto) 1.0 % (0.0-2.0) 1.1 % (0.0-2.0) Prothrombin Time > 100.0 SEC (9.30-11.50) H 52.5 SEC (9.30-11.50) H Prothromb Time International Ratio > 10.0 (0.9-1.1) *H 4.9 (0.9-1.1) H Sodium Level 141 MMOL/L (136-145) 143 MMOL/L (136-145) Potassium Level 4.5 MMOL/L (3.5-5.1) 4.3 MMOL/L (3.5-5.1) Chloride Level 108 MMOL/L (98-107) H 109 MMOL/L (98-107) H Carbon Dioxide Level 29 MMOL/L (21-32) 30 MMOL/L (21-32) Anion Gap 4 mmol/L (5-15) L 4 mmol/L (5-15) L Blood Urea Nitrogen 58 mg/dL (7-18) H 50 mg/dL (7-18) H Creatinine 1.5 MG/DL (0.55-1.30) H 1.2 MG/DL (0.55-1.30) Estimat Glomerular Filtration Rate mL/min (>60) mL/min (>60) Glucose Level 116 MG/DL (74-106) H 130 MG/DL (74-106) H Calcium Level 9.0 MG/DL (8.5-10.1) 8.7 MG/DL (8.5-10.1) Total Bilirubin 0.2 MG/DL (0.2-1.0) 0.3 MG/DL (0.2-1.0) Aspartate Amino Transf (AST/SGOT) 15 U/L (15-37) 13 U/L (15-37) L Alanine Aminotransferase (ALT/SGPT) 10 U/L (12-78) L 11 U/L (12-78) L Alkaline Phosphatase 53 U/L (46-116) 50 U/L (46-116) Total Protein 6.2 G/DL (6.4-8.2) L 6.0 G/DL (6.4-8.2) L Albumin 2.8 G/DL (3.4-5.0) L 2.8 G/DL (3.4-5.0) L Globulin 3.4 g/dL 3.2 g/dL Albumin/Globulin Ratio 0.8 (1.0-2.7) L 0.9 (1.0-2.7) L Hemoglobin A1c 6.2 % (4.3-6.0) H Uric Acid 10.9 MG/DL (2.6-7.2) H Iron Level Pending Unsaturated Iron Binding Pending Ferritin 110 NG/ML (8-388) Gamma Glutamyl Transpeptidase 14 U/L (5-85) Total Creatine Kinase 21 U/L (26-308) L C-Reactive Protein, Quantitative 1.2 mg/dL (0.00-0.90) H Vitamin B12 Level Pending Folate Pending Activated Partial Thromboplast Time 57 SEC (23-33) H Phosphorus Level 3.4 MG/DL (2.5-4.9) Magnesium Level 1.9 MG/DL (1.8-2.4) Height (Feet): 5 Height (Inches): 3.00 Weight (Pounds): 116 General Appearance: WD/WN, no apparent distress, alert, thin Cardiovascular: normal rate Respiratory/Chest: normal breath sounds, no respiratory distress Abdominal Exam: normal bowel sounds, non tender, soft Extremities: normal range of motion, non-tender Analy Nicholson N.P. Jun 12, 2017 10:20
[2017-06-12 10:26] LABS: % IRON SATURATION 26 % (15-50); IRON 51 ug/dL (50-175); TOTAL IRON BINDING CAPACITY 195 ug/dL (250-450)
[2017-06-12 12:00] VITALS: BP 119/50
--- NOTE | 2017-06-12 12:56 | Internal Med Progress Note ---
Subjective Date of Service: Jun 12, 2017 Physician Name Aaron Robertson Attending Physician Yandel Haines MD Current Medications Medications (Trade) Dose Ordered Sig/Fredy Route PRN Reason Start Time Stop Time Status Last Admin Dose Admin Acetaminophen (Tylenol) 650 mg Q4H PRN ORAL Mild Pain/Temp > 100.5 06/11/17 05:30 07/11/17 05:29 06/11/17 02:50 Amlodipine Besylate (Norvasc) 5 mg DAILY ORAL 06/12/17 09:00 07/12/17 08:59 Dextrose (Dextrose 50%) STAT PRN IV Hypoglycemia 06/10/17 21:30 07/10/17 21:29 Escitalopram Oxalate (Lexapro) 10 mg DAILY ORAL 06/11/17 09:00 07/11/17 08:59 06/12/17 08:42 Furosemide (Lasix) 40 mg DAILY ORAL 06/12/17 09:00 07/12/17 08:59 06/12/17 08:43 Lorazepam (Ativan 2mg/ml 1ml) 0.5 mg Q4H PRN IV For Anxiety 06/10/17 21:30 06/17/17 21:29 Metoprolol Succinate (Toprol XL) 50 mg DAILY ORAL 06/11/17 09:00 07/11/17 08:59 06/11/17 09:05 Morphine Sulfate (Morphine Sulfate) 1 mg Q4H PRN IVP PAIN 4-10 06/10/17 21:30 06/17/17 21:29 Ondansetron HCl (Zofran) 4 mg Q6H PRN IVP Nausea & Vomiting 06/10/17 21:30 07/10/17 21:29 Pantoprazole (Protonix) 40 mg DAILY ORAL 06/12/17 09:00 07/12/17 08:59 06/12/17 08:42 Polyethylene Glycol (Miralax) 17 gm HSPRN PRN ORAL Constipation 06/10/17 21:30 07/10/17 21:29 Pravastatin Sodium (Pravachol) 80 mg BEDTIME ORAL 06/11/17 21:00 07/11/17 20:59 06/11/17 21:21 Zolpidem Tartrate (Ambien) 5 mg HSPRN PRN ORAL Insomnia 06/10/17 21:30 06/17/17 21:29 Allergies: Coded Allergies: No Known Allergies (Verified , 06/09/07) ROS Limited/Unobtainable: No Constitutional: Reports: no symptoms HEENT: Reports: no symptoms Cardiovascular: Reports: no symptoms Respiratory: Reports: no symptoms Gastrointestinal/Abdominal: Reports: no symptoms Genitourinary: Reports: no symptoms Neurologic/Psychiatric: Reports: no symptoms Subjective 87 YO F with chief complaint overanticoagulation. Cover for Int Med-Dr Haines. Objective Last Vital Signs Date Time Temp Pulse Resp B/P (MAP) Pulse Ox O2 Delivery O2 Flow Rate FiO2 06/12/17 12:00 97.7 60 20 119/50 97 Room Air 97.7 General Appearance: alert, mild distress, thin EENT: PERRL/EOMI, normal ENT inspection, TMs normal Neck: non-tender, normal alignment, supple Cardiovascular: normal peripheral pulses, normal rate, regular rhythm, no gallop/murmur, no JVD Respiratory/Chest: chest wall non-tender, lungs clear, normal breath sounds, no respiratory distress, no accessory muscle use Abdomen: normal bowel sounds, non tender, soft, no organomegaly, no mass Extremities: normal range of motion, non-tender 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, no motor/sensory deficits Skin: normal pigmentation, warm/dry Laboratory Tests Test 06/11/17 15:30 06/12/17 06:27 06/12/17 06:37 White Blood Count 7.5 K/UL (4.8-10.8) 7.3 K/UL (4.8-10.8) Red Blood Count 3.39 M/UL (4.20-5.40) L 3.25 M/UL (4.20-5.40) L Hemoglobin 10.1 G/DL (12.0-16.0) L 9.9 G/DL (12.0-16.0) L Hematocrit 31.2 % (37.0-47.0) L 30.3 % (37.0-47.0) L Mean Corpuscular Volume 92 FL (80-99) 93 FL (80-99) Mean Corpuscular Hemoglobin 29.9 PG (27.0-31.0) 30.5 PG (27.0-31.0) Mean Corpuscular Hemoglobin Concent 32.4 G/DL (32.0-36.0) 32.8 G/DL (32.0-36.0) Red Cell Distribution Width 13.1 % (11.6-14.8) 13.1 % (11.6-14.8) Platelet Count 182 K/UL (150-450) 175 K/UL (150-450) Mean Platelet Volume 6.9 FL (6.5-10.1) 6.9 FL (6.5-10.1) Neutrophils (%) (Auto) 71.7 % (45.0-75.0) 70.0 % (45.0-75.0) Lymphocytes (%) (Auto) 16.2 % (20.0-45.0) L 16.6 % (20.0-45.0) L Monocytes (%) (Auto) 11.1 % (1.0-10.0) H 11.7 % (1.0-10.0) H Eosinophils (%) (Auto) 0.0 % (0.0-3.0) 0.7 % (0.0-3.0) Basophils (%) (Auto) 1.0 % (0.0-2.0) 1.1 % (0.0-2.0) Prothrombin Time > 100.0 SEC (9.30-11.50) H 52.5 SEC (9.30-11.50) H Prothromb Time International Ratio > 10.0 (0.9-1.1) *H 4.9 (0.9-1.1) H Sodium Level 141 MMOL/L (136-145) 143 MMOL/L (136-145) Potassium Level 4.5 MMOL/L (3.5-5.1) 4.3 MMOL/L (3.5-5.1) Chloride Level 108 MMOL/L (98-107) H 109 MMOL/L (98-107) H Carbon Dioxide Level 29 MMOL/L (21-32) 30 MMOL/L (21-32) Anion Gap 4 mmol/L (5-15) L 4 mmol/L (5-15) L Blood Urea Nitrogen 58 mg/dL (7-18) H 50 mg/dL (7-18) H Creatinine 1.5 MG/DL (0.55-1.30) H 1.2 MG/DL (0.55-1.30) Estimat Glomerular Filtration Rate mL/min (>60) mL/min (>60) Glucose Level 116 MG/DL (74-106) H 130 MG/DL (74-106) H Calcium Level 9.0 MG/DL (8.5-10.1) 8.7 MG/DL (8.5-10.1) Total Bilirubin 0.2 MG/DL (0.2-1.0) 0.3 MG/DL (0.2-1.0) Aspartate Amino Transf (AST/SGOT) 15 U/L (15-37) 13 U/L (15-37) L Alanine Aminotransferase (ALT/SGPT) 10 U/L (12-78) L 11 U/L (12-78) L Alkaline Phosphatase 53 U/L (46-116) 50 U/L (46-116) Total Protein 6.2 G/DL (6.4-8.2) L 6.0 G/DL (6.4-8.2) L Albumin 2.8 G/DL (3.4-5.0) L 2.8 G/DL (3.4-5.0) L Globulin 3.4 g/dL 3.2 g/dL Albumin/Globulin Ratio 0.8 (1.0-2.7) L 0.9 (1.0-2.7) L Hemoglobin A1c 6.2 % (4.3-6.0) H Uric Acid 10.9 MG/DL (2.6-7.2) H Iron Level 51 ug/dL (50-175) Total Iron Binding Capacity 195 ug/dL (250-450) L Percent Iron Saturation 26 % (15-50) Unsaturated Iron Binding 144 ug/dL (112-346) Ferritin 110 NG/ML (8-388) Gamma Glutamyl Transpeptidase 14 U/L (5-85) Total Creatine Kinase 21 U/L (26-308) L C-Reactive Protein, Quantitative 1.2 mg/dL (0.00-0.90) H Vitamin B12 Level 603 PG/ML (193-986) Folate 14.3 NG/ML (8.6-58.9) Activated Partial Thromboplast Time 57 SEC (23-33) H Phosphorus Level 3.4 MG/DL (2.5-4.9) Magnesium Level 1.9 MG/DL (1.8-2.4) Intake and Output 06/11/17 06/12/17 19:00 07:00 Intake Total 720 ml Output Total 375 ml Balance 720 ml -375 ml Intake Oral 720 ml Output Urine Total 375 ml # Voids 3 # Bowel Movements 2 Assessment/Plan Problem List: (1) Atrial fibrillation Assessment & Plan: See cardiology note. (2) HTN (hypertension) Assessment & Plan: Continue metoprolol (3) Supratherapeutic INR Assessment & Plan: Resolving; await heme consult (4) CHF (congestive heart failure) Assessment & Plan: See cardiology note. (5) Aortic valve replaced Status: progressing AARON ROBERTSON Jun 12, 2017 12:56
--- NOTE | 2017-06-12 13:37 | Pulmonology Progress Note ---
Assessment/Plan Problems: (1) Supratherapeutic INR (2) Lower GI bleed (3) HTN (hypertension) (4) Major depression (5) Pacemaker (6) Aortic valve replaced Assessment/Plan INR is 4 now feeling better, c/o of dirty windows, ( they are dirty) check inr in am heart rate controlled med/surg Subjective ROS Limited/Unobtainable: No Allergies: Coded Allergies: No Known Allergies (Verified , 06/09/07) Objective Last 24 Hour Vital Signs Date Time Temp Pulse Resp B/P (MAP) Pulse Ox O2 Delivery O2 Flow Rate FiO2 06/12/17 12:00 97.7 60 20 119/50 97 Room Air 97.7 06/12/17 08:43 60 112/54 06/12/17 08:43 60 112/54 06/12/17 08:00 97.9 60 20 112/54 99 Room Air 97.9 06/12/17 04:00 97.1 66 19 111/59 97 Room Air 97.1 06/12/17 04:00 60 06/12/17 00:00 97.7 61 19 105/60 98 Room Air 97.7 06/12/17 00:00 76 06/11/17 20:00 98.1 68 19 119/49 96 Room Air 98.1 06/11/17 20:00 76 06/11/17 16:00 97.7 63 20 113/53 99 Room Air 97.7 06/11/17 16:00 60 Intake and Output 06/11/17 06/12/17 19:00 07:00 Intake Total 720 ml Output Total 375 ml Balance 720 ml -375 ml Intake Oral 720 ml Output Urine Total 375 ml # Voids 3 # Bowel Movements 2 General Appearance: WD/WN HEENT: normocephalic Respiratory/Chest: chest wall non-tender, lungs clear Breasts: no masses Cardiovascular: normal peripheral pulses Abdomen: normal bowel sounds Genitourinary: normal external genitalia Skin: no rash 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 Laboratory Tests 06/11/17 15:30: White Blood Count 7.5, Red Blood Count 3.39L, Hemoglobin 10.1L, Hematocrit 31.2L , Mean Corpuscular Volume 92, Mean Corpuscular Hemoglobin 29.9, Mean Corpuscular Hemoglobin Concent 32.4, Red Cell Distribution Width 13.1, Platelet Count 182, Mean Platelet Volume 6.9, Neutrophils (%) (Auto) 71.7, Lymphocytes (% ) (Auto) 16.2L, Monocytes (%) (Auto) 11.1H, Eosinophils (%) (Auto) 0.0, Basophils (%) (Auto) 1.0, Prothrombin Time > 100.0H, Prothromb Time International Ratio > 10.0*H, Sodium Level 141, Potassium Level 4.5, Chloride Level 108H, Carbon Dioxide Level 29, Anion Gap 4L, Blood Urea Nitrogen 58H, Creatinine 1.5H, Estimat Glomerular Filtration Rate , Glucose Level 116H, Calcium Level 9.0, Total Bilirubin 0.2, Aspartate Amino Transf (AST/SGOT) 15, Alanine Aminotransferase (ALT/SGPT) 10L, Alkaline Phosphatase 53, Total Protein 6.2L, Albumin 2.8L, Globulin 3.4, Albumin/Globulin Ratio 0.8L 06/12/17 06:27: Hemoglobin A1c 6.2H, Uric Acid 10.9H, Iron Level 51, Total Iron Binding Capacity 195L, Percent Iron Saturation 26, Unsaturated Iron Binding 144, Ferritin 110, Gamma Glutamyl Transpeptidase 14, Total Creatine Kinase 21L, C- Reactive Protein, Quantitative 1.2H, Vitamin B12 Level 603, Folate 14.3 06/12/17 06:37: White Blood Count 7.3, Red Blood Count 3.25L, Hemoglobin 9.9L, Hematocrit 30.3L , Mean Corpuscular Volume 93, Mean Corpuscular Hemoglobin 30.5, Mean Corpuscular Hemoglobin Concent 32.8, Red Cell Distribution Width 13.1, Platelet Count 175, Mean Platelet Volume 6.9, Neutrophils (%) (Auto) 70.0, Lymphocytes (% ) (Auto) 16.6L, Monocytes (%) (Auto) 11.7H, Eosinophils (%) (Auto) 0.7, Basophils (%) (Auto) 1.1, Prothrombin Time 52.5H, Prothromb Time International Ratio 4.9H, Sodium Level 143, Potassium Level 4.3, Chloride Level 109H, Carbon Dioxide Level 30, Anion Gap 4L, Blood Urea Nitrogen 50H, Creatinine 1.2, Estimat Glomerular Filtration Rate , Glucose Level 130H, Calcium Level 8.7, Total Bilirubin 0.3, Aspartate Amino Transf (AST/SGOT) 13L, Alanine Aminotransferase (ALT/SGPT) 11L, Alkaline Phosphatase 50, Total Protein 6.0L, Albumin 2.8L, Globulin 3.2, Albumin/Globulin Ratio 0.9L, Activated Partial Thromboplast Time 57H, Phosphorus Level 3.4, Magnesium Level 1.9 Current Medications Medications (Trade) Dose Ordered Sig/Fredy Route PRN Reason Start Time Stop Time Status Last Admin Dose Admin Acetaminophen (Tylenol) 650 mg Q4H PRN ORAL Mild Pain/Temp > 100.5 06/11/17 05:30 07/11/17 05:29 06/11/17 02:50 Amlodipine Besylate (Norvasc) 5 mg DAILY ORAL 06/12/17 09:00 07/12/17 08:59 Dextrose (Dextrose 50%) STAT PRN IV Hypoglycemia 06/10/17 21:30 07/10/17 21:29 Escitalopram Oxalate (Lexapro) 10 mg DAILY ORAL 06/11/17 09:00 07/11/17 08:59 06/12/17 08:42 Furosemide (Lasix) 40 mg DAILY ORAL 06/12/17 09:00 07/12/17 08:59 06/12/17 08:43 Lorazepam (Ativan 2mg/ml 1ml) 0.5 mg Q4H PRN IV For Anxiety 06/10/17 21:30 06/17/17 21:29 Metoprolol Succinate (Toprol XL) 50 mg DAILY ORAL 06/11/17 09:00 07/11/17 08:59 06/11/17 09:05 Morphine Sulfate (Morphine Sulfate) 1 mg Q4H PRN IVP PAIN 4-10 06/10/17 21:30 06/17/17 21:29 Ondansetron HCl (Zofran) 4 mg Q6H PRN IVP Nausea & Vomiting 06/10/17 21:30 07/10/17 21:29 Pantoprazole (Protonix) 40 mg DAILY ORAL 06/12/17 09:00 07/12/17 08:59 06/12/17 08:42 Polyethylene Glycol (Miralax) 17 gm HSPRN PRN ORAL Constipation 06/10/17 21:30 07/10/17 21:29 Pravastatin Sodium (Pravachol) 80 mg BEDTIME ORAL 06/11/17 21:00 07/11/17 20:59 06/11/17 21:21 Zolpidem Tartrate (Ambien) 5 mg HSPRN PRN ORAL Insomnia 06/10/17 21:30 06/17/17 21:29 Lilly Veras MD Jun 12, 2017 13:37
--- NOTE | 2017-06-12 14:30 | Consultation ---
DATE OF CONSULTATION: 06/11/2017 NOTE: POOR AUDIO HEMATOLOGY/ONCOLOGY CONSULTATION CONSULTING PHYSICIAN: Stoney Lin M.D. REQUESTING PHYSICIAN: Yandel Haines M.D. REASON FOR CONSULTATION: Evaluation of extreme coagulopathy . IDENTIFICATION DATA: Dear Dr. Haines and Dr. Veras, The patient is a pleasant 87-year-old female with past medical history significant for permanent atrial fibrillation, hypertension, and aortic stenosis, at this time presents to the hospital [facility], INR noted to be elevated about 14, therefore admitted. The patient also noted to have some dark tarry stools. Does not have any history of chest pain or shortness of breath. No PND. No orthopnea. No palpitations. Hematology/Oncology Service was consulted for further evaluation and treatment extreme coagulopathy prothrombin time . PAST MEDICAL HISTORY: Permanent atrial fibrillation, hypertension, hyperlipidemia, status post aortic valve replacement, aortic stenosis, status post thoracentesis, moderate pulmonary hypertension, fracture of the lumbar spine, kyphoplasty, and left scapula fracture. ALLERGIES: No known drug allergies. SOCIAL HISTORY: No alcohol, tobacco, or illicit drug use. REVIEW OF SYSTEMS: CONSTITUTIONAL: No fevers, chills, or night sweats. SKIN: No rashes, bumps, or itching. HEENT: No headache, hearing or vision changes. BREASTS: No lumps, pain, or discharge. PULMONARY: No cough, sputum, or shortness of breath. GASTROINTESTINAL: No nausea, vomiting, or diarrhea. GENITOURINARY: No dysuria, frequency, or urgency. MUSCULOSKELETAL: No joint swelling, muscle pain, or trauma. PHYSICAL EXAMINATION: GENERAL: No acute distress. VITAL SIGNS: Reviewed. PULMONARY: Decreased breath sounds. CARDIOVASCULAR: Regular rate. No S3 or S4. ABDOMEN: Soft, nontender, and nondistended. EXTREMITIES: No cyanosis, swelling, or edema. LABORATORY AND DIAGNOSTIC DATA: WBC 7.5, hemoglobin 10.1, hematocrit 31, and platelet count ,000. INR of 10. Prothrombin time 100. PTT of . ASSESSMENT AND RECOMMENDATIONS: 1. Extreme coagulopathy secondary to stenosis, Coumadin overdose in addition to medication interaction. Coumadin has been discontinued at this time. 2. Lower extremity deep venous thrombosis. bilaterally. . 3. the patient on Xarelto and . 4. aortic valve replacement for aortic stenosis, being seen . 5. Sick sinus syndrome, status post pacemaker implantation. 6. Previous fall history . 7. History of coronary artery disease. 8. History of pleural effusion. 9. Moderate to severe mitral stenosis. I appreciate the consultation. Stoney Lin M.D. DR: BOLA JOB#: [id number] CC:
[2017-06-12 16:00] VITALS: BP 132/62
[2017-06-12] MEDS ORDERED: Morphine Sulfate 2mg/ml Inj IVP PRN (16:30)
[2017-06-12] MEDS ORDERED: LORazepam Inj 2mg/ml 1ml IV PRN (16:30)
[2017-06-12 19:33] VITALS: BP 114/43
--- NOTE | 2017-06-12 20:20 | Cardiology Progress Note ---
Assessment/Plan Assessment/Plan 1. Coagulopathy, presumed to be secondary to Coumadin possible interaction with other medications. 2. Aortic valve replacement previously for aortic stenosis. 3. Atrial fibrillation, permanent. 4. Sick sinus syndrome status post permanent pacemaker implantation. 5. Recent fall and injury with lumbar spine compression fracture status post kyphoplasty. 6. History of previous multiple falls. 7. Reported history of coronary artery disease. 8. History of pleural effusion. 9. Moderate to severe mitral stenosis 10. pulm htn at [facility] requesting oxygen echo as noted cxr noted pleural effusion i believe chronic i dcd amio cr improved coagulopathy improved allanley start on Coumadin lower dose soon cannot use NOAC in setting of valvular heart disease on diuretics Subjective Cardiovascular: Denies: chest pain, lightheadedness, palpitations Respiratory: Reports: shortness of breath - at timeas Gastrointestinal/Abdominal: Denies: abdomen distended Genitourinary: Denies: burning Subjective back pain Objective Last 24 Hour Vital Signs Date Time Temp Pulse Resp B/P (MAP) Pulse Ox O2 Delivery O2 Flow Rate FiO2 06/12/17 19:33 96.6 61 20 114/43 97 Room Air 96.6 97 06/12/17 16:00 97.1 60 20 132/62 98 Room Air 97.1 06/12/17 12:00 97.7 60 20 119/50 97 Room Air 97.7 06/12/17 12:00 60 06/12/17 08:43 60 112/54 06/12/17 08:43 60 112/54 06/12/17 08:00 61 06/12/17 08:00 97.9 60 20 112/54 99 Room Air 97.9 06/12/17 04:00 97.1 66 19 111/59 97 Room Air 97.1 06/12/17 04:00 60 06/12/17 00:00 97.7 61 19 105/60 98 Room Air 97.7 06/12/17 00:00 76 General Appearance: no apparent distress, alert Neck: supple Cardiovascular: irregularly irregular Respiratory/Chest: lungs clear Abdomen: normal bowel sounds, non tender, soft Extremities: no swelling Intake and Output 06/11/17 06/12/17 19:00 07:00 Intake Total 720 ml Output Total 375 ml Balance 720 ml -375 ml Intake Oral 720 ml Output Urine Total 375 ml # Voids 3 # Bowel Movements 2 Laboratory Tests Test 06/12/17 06:27 06/12/17 06:37 Hemoglobin A1c 6.2 % (4.3-6.0) H Uric Acid 10.9 MG/DL (2.6-7.2) H Iron Level 51 ug/dL (50-175) Total Iron Binding Capacity 195 ug/dL (250-450) L Percent Iron Saturation 26 % (15-50) Unsaturated Iron Binding 144 ug/dL (112-346) Ferritin 110 NG/ML (8-388) Gamma Glutamyl Transpeptidase 14 U/L (5-85) Total Creatine Kinase 21 U/L (26-308) L C-Reactive Protein, Quantitative 1.2 mg/dL (0.00-0.90) H Vitamin B12 Level 603 PG/ML (193-986) Folate 14.3 NG/ML (8.6-58.9) White Blood Count 7.3 K/UL (4.8-10.8) Red Blood Count 3.25 M/UL (4.20-5.40) L Hemoglobin 9.9 G/DL (12.0-16.0) L Hematocrit 30.3 % (37.0-47.0) L Mean Corpuscular Volume 93 FL (80-99) Mean Corpuscular Hemoglobin 30.5 PG (27.0-31.0) Mean Corpuscular Hemoglobin Concent 32.8 G/DL (32.0-36.0) Red Cell Distribution Width 13.1 % (11.6-14.8) Platelet Count 175 K/UL (150-450) Mean Platelet Volume 6.9 FL (6.5-10.1) Neutrophils (%) (Auto) 70.0 % (45.0-75.0) Lymphocytes (%) (Auto) 16.6 % (20.0-45.0) L Monocytes (%) (Auto) 11.7 % (1.0-10.0) H Eosinophils (%) (Auto) 0.7 % (0.0-3.0) Basophils (%) (Auto) 1.1 % (0.0-2.0) Prothrombin Time 52.5 SEC (9.30-11.50) H Prothromb Time International Ratio 4.9 (0.9-1.1) H Activated Partial Thromboplast Time 57 SEC (23-33) H Sodium Level 143 MMOL/L (136-145) Potassium Level 4.3 MMOL/L (3.5-5.1) Chloride Level 109 MMOL/L (98-107) H Carbon Dioxide Level 30 MMOL/L (21-32) Anion Gap 4 mmol/L (5-15) L Blood Urea Nitrogen 50 mg/dL (7-18) H Creatinine 1.2 MG/DL (0.55-1.30) Estimat Glomerular Filtration Rate mL/min (>60) Glucose Level 130 MG/DL (74-106) H Calcium Level 8.7 MG/DL (8.5-10.1) Phosphorus Level 3.4 MG/DL (2.5-4.9) Magnesium Level 1.9 MG/DL (1.8-2.4) Total Bilirubin 0.3 MG/DL (0.2-1.0) Aspartate Amino Transf (AST/SGOT) 13 U/L (15-37) L Alanine Aminotransferase (ALT/SGPT) 11 U/L (12-78) L Alkaline Phosphatase 50 U/L (46-116) Total Protein 6.0 G/DL (6.4-8.2) L Albumin 2.8 G/DL (3.4-5.0) L Globulin 3.2 g/dL Albumin/Globulin Ratio 0.9 (1.0-2.7) L RICKY WAYNE Jun 12, 2017 20:20
[2017-06-12] MEDS ORDERED: Miralax 17gm pkt ORAL PRN (21:00)
[2017-06-12] MEDS ORDERED: Zolpidem 5mg tab ORAL PRN (21:00)
[2017-06-13 00:08] VITALS: BP 112/39
[2017-06-13 03:12] VITALS: BP 127/45
[2017-06-13 06:42] LABS: BASOPHILS % (AUTO) 0.8 % (0.0-2.0); EOSINOPHILS % (AUTO) 1.8 % (0.0-3.0); HEMATOCRIT 31.2 % (37.0-47.0); HEMOGLOBIN 10.2 G/DL (12.0-16.0); LYMPHOCYTES % (AUTO) 18.9 % (20.0-45.0); MEAN CORPUSCULAR VOLUME 93 FL (80-99); MONOCYTES % (AUTO) 11.7 % (1.0-10.0); NEUTROPHILS % (AUTO) 66.7 % (45.0-75.0); PLATELET COUNT 176 K/UL (150-450); RED BLOOD COUNT 3.37 M/UL (4.20-5.40); RED CELL DISTRIBUTION WIDTH 13.4 % (11.6-14.8); WHITE BLOOD COUNT 7.6 K/UL (4.8-10.8)
[2017-06-13 06:53] LABS: INR 1.8 (0.9-1.1)
[2017-06-13 07:07] LABS: ANION GAP 7 mmol/L (5-15); BLOOD UREA NITROGEN 35 mg/dL (7-18); CALCIUM 8.8 MG/DL (8.5-10.1); CARBON DIOXIDE 29 MMOL/L (21-32); CHLORIDE 109 MMOL/L (98-107); CREATININE 1.1 MG/DL (0.55-1.30); POTASSIUM 3.9 MMOL/L (3.5-5.1); SODIUM 145 MMOL/L (136-145)
[2017-06-13 08:14] VITALS: BP 145/57
[2017-06-13] MEDS: Metoprolol Succinate XL 50mg tab ORAL SCH (09:00)
[2017-06-13] MEDS: Furosemide 40mg tab ORAL SCH (09:16)
[2017-06-13 10:58] LABS: APPEARANCE,URINE CLEAR; BILIRUBIN, URINE NEGATIVE (NEGATIVE); COLOR,URINE PALE YELLOW; GLUCOSE, URINE (UA) NEGATIVE (NEGATIVE); KETONES,URINE NEGATIVE (NEGATIVE); LEUKOCYTE ESTERASE ,URINE NEGATIVE (NEGATIVE); NITRITE,URINE NEGATIVE (NEGATIVE); PH,URINE 5 (4.5-8.0); PROTEIN,URINE 1+ (NEGATIVE); UROBILINOGEN,URINE NORMAL MG/DL (0.0-1.0)
--- NOTE | 2017-06-13 11:17 | GI Progress Note ---
Assessment/Plan Problems: (1) Supratherapeutic INR ICD Codes: R79.1 - Abnormal coagulation profile SNOMED: 623816038 (2) Abdominal pain (3) Lower GI bleed ICD Codes: K92.2 - Gastrointestinal hemorrhage, unspecified SNOMED: 38943566 Status: stable Status Narrative Discussed with Dr. Tucker. Assessment/Plan defer GI procedures, stable H&H >> LGIB most likely from hypercoagulation 2/2 warfarin correct supratherapeutic INR monitor H&H, prn transfusions OB stool x 3 regular diet ppi fu labs, coags dc planning The patient was seen and examined at bedside and all new and available data was reviewed in the patients chart. I agree with the above findings, impression and plan. (Patient seen earlier today. Signature stamp does not reflect patient encounter time.). - iLlliam Tucker MD Subjective Subjective no symptoms ambulating had BM, no noted blood Objective Last 24 Hour Vital Signs Date Time Temp Pulse Resp B/P (MAP) Pulse Ox O2 Delivery O2 Flow Rate FiO2 06/13/17 09:15 60 145/57 06/13/17 09:00 60 145/57 06/13/17 08:14 97.9 60 18 145/57 95 Room Air 97.9 06/13/17 04:19 Room Air 06/13/17 03:12 97.2 65 20 127/45 93 Room Air 97.2 06/13/17 00:20 Room Air 06/13/17 00:08 97.7 65 20 112/39 92 Room Air 97.7 06/12/17 20:00 Room Air 06/12/17 19:33 96.6 61 20 114/43 97 Room Air 96.6 97 06/12/17 16:00 97.1 60 20 132/62 98 Room Air 97.1 06/12/17 12:00 97.7 60 20 119/50 97 Room Air 97.7 06/12/17 12:00 60 Intake and Output 06/12/17 06/13/17 19:00 07:00 Intake Total 240 ml Balance 240 ml Intake Oral 240 ml # Voids 2 3 # Bowel Movements 1 Laboratory Tests Test 06/13/17 04:50 06/13/17 10:15 White Blood Count 7.6 K/UL (4.8-10.8) Red Blood Count 3.37 M/UL (4.20-5.40) L Hemoglobin 10.2 G/DL (12.0-16.0) L Hematocrit 31.2 % (37.0-47.0) L Mean Corpuscular Volume 93 FL (80-99) Mean Corpuscular Hemoglobin 30.3 PG (27.0-31.0) Mean Corpuscular Hemoglobin Concent 32.7 G/DL (32.0-36.0) Red Cell Distribution Width 13.4 % (11.6-14.8) Platelet Count 176 K/UL (150-450) Mean Platelet Volume 6.8 FL (6.5-10.1) Neutrophils (%) (Auto) 66.7 % (45.0-75.0) Lymphocytes (%) (Auto) 18.9 % (20.0-45.0) L Monocytes (%) (Auto) 11.7 % (1.0-10.0) H Eosinophils (%) (Auto) 1.8 % (0.0-3.0) Basophils (%) (Auto) 0.8 % (0.0-2.0) Prothrombin Time 18.6 SEC (9.30-11.50) H Prothromb Time International Ratio 1.8 (0.9-1.1) H Activated Partial Thromboplast Time 37 SEC (23-33) H Sodium Level 145 MMOL/L (136-145) Potassium Level 3.9 MMOL/L (3.5-5.1) Chloride Level 109 MMOL/L (98-107) H Carbon Dioxide Level 29 MMOL/L (21-32) Anion Gap 7 mmol/L (5-15) Blood Urea Nitrogen 35 mg/dL (7-18) H Creatinine 1.1 MG/DL (0.55-1.30) Estimat Glomerular Filtration Rate mL/min (>60) Glucose Level 89 MG/DL (74-106) Calcium Level 8.8 MG/DL (8.5-10.1) Urine Color Pale yellow Urine Appearance Clear Urine pH 5 (4.5-8.0) Urine Specific [place] 1.010 (1.005-1.035) Urine Protein 1+ (NEGATIVE) H Urine Glucose (UA) Negative (NEGATIVE) Urine Ketones Negative (NEGATIVE) Urine Occult Blood 1+ (NEGATIVE) H Urine Nitrite Negative (NEGATIVE) Urine Bilirubin Negative (NEGATIVE) Urine Urobilinogen Normal MG/DL (0.0-1.0) Urine Leukocyte Esterase Negative (NEGATIVE) Urine RBC 0-2 /HPF (0 - 2) Urine WBC 0-2 /HPF (0 - 2) Urine Squamous Epithelial Cells Few /LPF (NONE/OCC) Urine Bacteria Occasional /HPF (NONE) Urine Random Sodium 18 mmol/L (20-110) L Stool Occult Blood Pending Height (Feet): 5 Height (Inches): 3.00 Weight (Pounds): 116 General Appearance: WD/WN, no apparent distress, alert, thin Cardiovascular: normal rate Respiratory/Chest: normal breath sounds, no respiratory distress Abdominal Exam: normal bowel sounds, non tender, soft Extremities: normal range of motion, non-tender Analy Nicholson N.P. Jun 13, 2017 11:17 TEMO TUCKER Jun 21, 2017 08:28
[2017-06-13 12:05] VITALS: BP 116/45
--- NOTE | 2017-06-13 12:33 | Nephrology Progress Note ---
Assessment/Plan Problem List: (1) Supratherapeutic INR (2) Renal insufficiency (3) Pacemaker (4) Atrial fibrillation Assessment Presented with Cr 1.7 , now Cr lower- Acute renal failure likely dehydration other conditions: - Coagulopathy, presumed to be secondary to Coumadin possible, INR down 1.8 interaction with other medications. - Aortic valve replacement previously for aortic stenosis. - Atrial fibrillation, permanent. - Sick sinus syndrome status post permanent pacemaker implantation. - Recent fall and injury with lumbar spine compression fracture status post kyphoplasty. History of previous multiple falls. - Reported history of coronary artery disease. - History of pleural effusion. - Moderate to severe mitral stenosis. - Anemia - HTN - Depression Plan Anemia workup- UA U Na 18 Monitor renal parameters Subjective ROS Limited/Unobtainable: No Constitutional: Reports: malaise Objective Objective Last 24 Hour Vital Signs Date Time Temp Pulse Resp B/P (MAP) Pulse Ox O2 Delivery O2 Flow Rate FiO2 06/13/17 09:15 60 145/57 06/13/17 09:00 60 145/57 06/13/17 08:14 97.9 60 18 145/57 95 Room Air 97.9 06/13/17 04:19 Room Air 06/13/17 03:12 97.2 65 20 127/45 93 Room Air 97.2 06/13/17 00:20 Room Air 06/13/17 00:08 97.7 65 20 112/39 92 Room Air 97.7 06/12/17 20:00 Room Air 06/12/17 19:33 96.6 61 20 114/43 97 Room Air 96.6 97 06/12/17 16:00 97.1 60 20 132/62 98 Room Air 97.1 Intake and Output 06/12/17 06/13/17 19:00 07:00 Intake Total 240 ml Balance 240 ml Intake Oral 240 ml # Voids 2 3 # Bowel Movements 1 Laboratory Tests 06/13/17 04:50: White Blood Count 7.6, Red Blood Count 3.37L, Hemoglobin 10.2L, Hematocrit 31.2L , Mean Corpuscular Volume 93, Mean Corpuscular Hemoglobin 30.3, Mean Corpuscular Hemoglobin Concent 32.7, Red Cell Distribution Width 13.4, Platelet Count 176, Mean Platelet Volume 6.8, Neutrophils (%) (Auto) 66.7, Lymphocytes (% ) (Auto) 18.9L, Monocytes (%) (Auto) 11.7H, Eosinophils (%) (Auto) 1.8, Basophils (%) (Auto) 0.8, Prothrombin Time 18.6H, Prothromb Time International Ratio 1.8H, Activated Partial Thromboplast Time 37H, Sodium Level 145, Potassium Level 3.9, Chloride Level 109H, Carbon Dioxide Level 29, Anion Gap 7, Blood Urea Nitrogen 35H, Creatinine 1.1, Estimat Glomerular Filtration Rate , Glucose Level 89, Calcium Level 8.8 06/13/17 10:15: Urine Color Pale yellow, Urine Appearance Clear, Urine pH 5, Urine Specific [place] 1.010, Urine Protein 1+H, Urine Glucose (UA) Negative, Urine Ketones Negative, Urine Occult Blood 1+H, Urine Nitrite Negative, Urine Bilirubin Negative, Urine Urobilinogen Normal, Urine Leukocyte Esterase Negative, Urine RBC 0-2, Urine WBC 0-2, Urine Squamous Epithelial Cells Few, Urine Bacteria Occasional, Urine Random Sodium 18L, Stool Occult Blood [Pending] Height (Feet): 5 Height (Inches): 3.00 Weight (Pounds): 116 General Appearance: no apparent distress Cardiovascular: arrhythmia Respiratory/Chest: decreased breath sounds Objective no change KAYLA EVERETT Jun 13, 2017 12:33
--- NOTE | 2017-06-13 13:46 | General Progress Note ---
Assessment/Plan Assessment/Plan 1. Extreme coagulopathy possibly secondary to stenosis, --> due to Coumadin overdose in addition to medication interaction. --> Coumadin has been discontinued at this time. --> INR has downtrended. 2. Lower extremity deep venous thrombosis. --> No DVT notes 3. the patient on Xarelto and . 4. Aortic valve replacement for aortic stenosis 5. Sick sinus syndrome, status post pacemaker implantation. 6. Previous fall history. 7. History of coronary artery disease. 8. History of pleural effusion. 9. Moderate to severe mitral stenosis. Subjective Date patient seen: Jun 12, 2017 Constitutional: Denies: no symptoms, chills, diaphoresis, fever, malaise, weakness, other HEENT: Denies: no symptoms, eye pain, blurred vision, tearing, double vision, ear pain, ear discharge, nose pain, nose congestion, throat pain, throat swelling, mouth pain, mouth swelling, other Cardiovascular: Denies: no symptoms, chest pain, edema, irregular heart rate, lightheadedness, palpitations, syncope, other Respiratory: Denies: no symptoms, cough, orthopnea, shortness of breath, SOB with excertion, SOB at rest, sputum, stridor, wheezing, other Gastrointestinal/Abdominal: Denies: no symptoms, abdomen distended, abdominal pain, black stools, tarry stools, blood in stool, constipated, diarrhea, difficulty swallowing, nausea, poor appetite, poor fluid intake, rectal bleeding , vomiting, other Genitourinary: Denies: no symptoms, burning, discharge, frequency, flank pain, hematuria, incontinence, pain, urgency, other Neurologic/Psychiatric: Denies: no symptoms, anxiety, depressed, emotional problems, headache, numbness, paresthesia, pre-existing deficit, seizure, tingling, tremors, weakness, other Allergies: Coded Allergies: No Known Allergies (Verified , 06/09/07) Subjective Discontinue coumadin. Resting in bed. Objective Last 24 Hour Vital Signs Date Time Temp Pulse Resp B/P (MAP) Pulse Ox O2 Delivery O2 Flow Rate FiO2 06/13/17 12:05 98.1 60 18 116/45 96 Room Air 98.1 06/13/17 09:15 60 145/57 06/13/17 09:00 60 145/57 06/13/17 08:14 97.9 60 18 145/57 95 Room Air 97.9 06/13/17 04:19 Room Air 06/13/17 03:12 97.2 65 20 127/45 93 Room Air 97.2 06/13/17 00:20 Room Air 06/13/17 00:08 97.7 65 20 112/39 92 Room Air 97.7 06/12/17 20:00 Room Air 06/12/17 19:33 96.6 61 20 114/43 97 Room Air 96.6 97 06/12/17 16:00 97.1 60 20 132/62 98 Room Air 97.1 Intake and Output 06/12/17 06/13/17 19:00 07:00 Intake Total 240 ml Balance 240 ml Intake Oral 240 ml # Voids 2 3 # Bowel Movements 1 Laboratory Tests 06/13/17 04:50: White Blood Count 7.6, Red Blood Count 3.37L, Hemoglobin 10.2L, Hematocrit 31.2L , Mean Corpuscular Volume 93, Mean Corpuscular Hemoglobin 30.3, Mean Corpuscular Hemoglobin Concent 32.7, Red Cell Distribution Width 13.4, Platelet Count 176, Mean Platelet Volume 6.8, Neutrophils (%) (Auto) 66.7, Lymphocytes (% ) (Auto) 18.9L, Monocytes (%) (Auto) 11.7H, Eosinophils (%) (Auto) 1.8, Basophils (%) (Auto) 0.8, Prothrombin Time 18.6H, Prothromb Time International Ratio 1.8H, Activated Partial Thromboplast Time 37H, Sodium Level 145, Potassium Level 3.9, Chloride Level 109H, Carbon Dioxide Level 29, Anion Gap 7, Blood Urea Nitrogen 35H, Creatinine 1.1, Estimat Glomerular Filtration Rate , Glucose Level 89, Calcium Level 8.8 06/13/17 10:15: Urine Color Pale yellow, Urine Appearance Clear, Urine pH 5, Urine Specific [place] 1.010, Urine Protein 1+H, Urine Glucose (UA) Negative, Urine Ketones Negative, Urine Occult Blood 1+H, Urine Nitrite Negative, Urine Bilirubin Negative, Urine Urobilinogen Normal, Urine Leukocyte Esterase Negative, Urine RBC 0-2, Urine WBC 0-2, Urine Squamous Epithelial Cells Few, Urine Bacteria Occasional, Urine Random Sodium 18L, Stool Occult Blood [Pending] Height (Feet): 5 Height (Inches): 3.00 Weight (Pounds): 116 General Appearance: confused Respiratory/Chest: decreased breath sounds Edema: trace edema Skin: warm/dry Stoney Lin Jun 13, 2017 13:46
[2017-06-13 15:59] VITALS: BP 128/52
--- NOTE | 2017-06-13 17:28 | Internal Med Progress Note ---
Subjective Date of Service: Jun 13, 2017 Physician Name Lewis Robertson Attending Physician Yandel Haines MD Current Medications Medications (Trade) Dose Ordered Sig/Fredy Route PRN Reason Start Time Stop Time Status Last Admin Dose Admin Acetaminophen (Tylenol) 650 mg Q4H PRN ORAL Mild Pain/Temp > 100.5 06/12/17 17:30 07/11/17 05:29 Amlodipine Besylate (Norvasc) 5 mg DAILY ORAL 06/13/17 09:00 07/12/17 08:59 06/13/17 09:15 Dextrose (Dextrose 50%) STAT PRN IV Hypoglycemia 06/12/17 17:30 07/10/17 17:29 Escitalopram Oxalate (Lexapro) 10 mg DAILY ORAL 06/13/17 09:00 07/11/17 08:59 06/13/17 09:15 Furosemide (Lasix) 40 mg DAILY ORAL 06/13/17 09:00 07/12/17 08:59 06/13/17 09:16 Lorazepam (Ativan 2mg/ml 1ml) 0.5 mg Q4H PRN IV For Anxiety 06/12/17 16:30 06/17/17 16:29 Metoprolol Succinate (Toprol XL) 50 mg DAILY ORAL 06/13/17 09:00 07/11/17 08:59 Morphine Sulfate (Morphine Sulfate) 1 mg Q4H PRN IVP PAIN 4-10 06/12/17 16:30 06/17/17 16:29 Ondansetron HCl (Zofran) 4 mg Q6H PRN IVP Nausea & Vomiting 06/12/17 16:30 07/10/17 16:29 Pantoprazole (Protonix) 40 mg DAILY ORAL 06/13/17 09:00 07/12/17 08:59 06/13/17 09:16 Polyethylene Glycol (Miralax) 17 gm HSPRN PRN ORAL Constipation 06/12/17 21:00 07/10/17 20:59 Pravastatin Sodium (Pravachol) 80 mg BEDTIME ORAL 06/12/17 21:00 07/11/17 20:59 06/12/17 21:32 Zolpidem Tartrate (Ambien) 5 mg HSPRN PRN ORAL Insomnia 06/12/17 21:00 06/17/17 20:59 Allergies: Coded Allergies: No Known Allergies (Verified , 06/09/07) ROS Limited/Unobtainable: No Constitutional: Reports: no symptoms HEENT: Reports: no symptoms Cardiovascular: Reports: no symptoms Respiratory: Reports: no symptoms Gastrointestinal/Abdominal: Reports: no symptoms Genitourinary: Reports: no symptoms Neurologic/Psychiatric: Reports: no symptoms Subjective 87 YO F with chief complaint overanticoagulation. Cover for Int [place]-Dr Haines. Objective Last Vital Signs Date Time Temp Pulse Resp B/P (MAP) Pulse Ox O2 Delivery O2 Flow Rate FiO2 06/13/17 12:05 98.1 60 18 116/45 96 Room Air 98.1 Laboratory Tests Test 06/13/17 04:50 06/13/17 10:15 White Blood Count 7.6 K/UL (4.8-10.8) Red Blood Count 3.37 M/UL (4.20-5.40) L Hemoglobin 10.2 G/DL (12.0-16.0) L Hematocrit 31.2 % (37.0-47.0) L Mean Corpuscular Volume 93 FL (80-99) Mean Corpuscular Hemoglobin 30.3 PG (27.0-31.0) Mean Corpuscular Hemoglobin Concent 32.7 G/DL (32.0-36.0) Red Cell Distribution Width 13.4 % (11.6-14.8) Platelet Count 176 K/UL (150-450) Mean Platelet Volume 6.8 FL (6.5-10.1) Neutrophils (%) (Auto) 66.7 % (45.0-75.0) Lymphocytes (%) (Auto) 18.9 % (20.0-45.0) L Monocytes (%) (Auto) 11.7 % (1.0-10.0) H Eosinophils (%) (Auto) 1.8 % (0.0-3.0) Basophils (%) (Auto) 0.8 % (0.0-2.0) Prothrombin Time 18.6 SEC (9.30-11.50) H Prothromb Time International Ratio 1.8 (0.9-1.1) H Activated Partial Thromboplast Time 37 SEC (23-33) H Sodium Level 145 MMOL/L (136-145) Potassium Level 3.9 MMOL/L (3.5-5.1) Chloride Level 109 MMOL/L (98-107) H Carbon Dioxide Level 29 MMOL/L (21-32) Anion Gap 7 mmol/L (5-15) Blood Urea Nitrogen 35 mg/dL (7-18) H Creatinine 1.1 MG/DL (0.55-1.30) Estimat Glomerular Filtration Rate mL/min (>60) Glucose Level 89 MG/DL (74-106) Calcium Level 8.8 MG/DL (8.5-10.1) Urine Color Pale yellow Urine Appearance Clear Urine pH 5 (4.5-8.0) Urine Specific [place] 1.010 (1.005-1.035) Urine Protein 1+ (NEGATIVE) H Urine Glucose (UA) Negative (NEGATIVE) Urine Ketones Negative (NEGATIVE) Urine Occult Blood 1+ (NEGATIVE) H Urine Nitrite Negative (NEGATIVE) Urine Bilirubin Negative (NEGATIVE) Urine Urobilinogen Normal MG/DL (0.0-1.0) Urine Leukocyte Esterase Negative (NEGATIVE) Urine RBC 0-2 /HPF (0 - 2) Urine WBC 0-2 /HPF (0 - 2) Urine Squamous Epithelial Cells Few /LPF (NONE/OCC) Urine Bacteria Occasional /HPF (NONE) Urine Random Sodium 18 mmol/L (20-110) L Stool Occult Blood Pending Intake and Output 06/12/17 06/13/17 19:00 07:00 Intake Total 240 ml Balance 240 ml Intake Oral 240 ml # Voids 2 3 # Bowel Movements 1 Objective General Appearance: alert, mild distress, thin EENT: PERRL/EOMI, normal ENT inspection, TMs normal Neck: non-tender, normal alignment, supple Cardiovascular: normal peripheral pulses, normal rate, regular rhythm, no gallop/murmur, no JVD Respiratory/Chest: chest wall non-tender, lungs clear, normal breath sounds, no respiratory distress, no accessory muscle use Abdomen: normal bowel sounds, non tender, soft, no organomegaly, no mass Extremities: normal range of motion, non-tender Neurologic: supervisor backfilling II-XII grossly normal, no motor/sensory deficits Skin: normal pigmentation, warm/dry Assessment/Plan Problem List: (1) Atrial fibrillation Assessment & Plan: See cardiology note. (2) HTN (hypertension) Assessment & Plan: Continue metoprolol (3) Supratherapeutic INR Assessment & Plan: Resolving. D/C coumadin-see heme consult (4) CHF (congestive heart failure) Assessment & Plan: See cardiology note. (5) Aortic valve replaced LEWIS ROBERTSON Jun 13, 2017 17:28
--- NOTE | 2017-06-13 19:11 | Cardiology Progress Note ---
Assessment/Plan Assessment/Plan 1. Coagulopathy, presumed to be secondary to Coumadin possible interaction with other medications. 2. Aortic valve replacement previously for aortic stenosis. 3. Atrial fibrillation, permanent. 4. Sick sinus syndrome status post permanent pacemaker implantation. 5. Recent fall and injury with lumbar spine compression fracture status post kyphoplasty. 6. History of previous multiple falls. 7. Reported history of coronary artery disease. 8. History of pleural effusion. 9. Moderate to severe mitral stenosis 10. pulm htn at [facility] requesting oxygen echo as noted cxr noted pleural effusion i believe chronic i dcd amio cr improved coagulopathy improved no inr 1.8 matthew start on Coumadin lower dose soon cannot use NOAC in setting of valvular heart disease on diuretics resume nirmal may need lovenox bridge until inr back up d/w dtr Subjective Cardiovascular: Denies: chest pain, irregular heart rate, lightheadedness Respiratory: Denies: shortness of breath Gastrointestinal/Abdominal: Denies: abdomen distended Genitourinary: Denies: no symptoms Subjective back pain Objective Last 24 Hour Vital Signs Date Time Temp Pulse Resp B/P (MAP) Pulse Ox O2 Delivery O2 Flow Rate FiO2 06/13/17 15:59 98.1 61 19 128/52 96 Room Air 98.1 06/13/17 12:05 98.1 60 18 116/45 96 Room Air 98.1 06/13/17 09:15 60 145/57 06/13/17 09:00 60 145/57 06/13/17 08:14 97.9 60 18 145/57 95 Room Air 97.9 06/13/17 04:19 Room Air 06/13/17 03:12 97.2 65 20 127/45 93 Room Air 97.2 06/13/17 00:20 Room Air 06/13/17 00:08 97.7 65 20 112/39 92 Room Air 97.7 06/12/17 20:00 Room Air 06/12/17 19:33 96.6 61 20 114/43 97 Room Air 96.6 97 General Appearance: no apparent distress, alert Neck: supple Cardiovascular: irregularly irregular Respiratory/Chest: lungs clear, normal breath sounds Abdomen: normal bowel sounds, non tender, soft Extremities: no swelling Intake and Output 06/12/17 06/13/17 19:00 07:00 Intake Total 240 ml Balance 240 ml Intake Oral 240 ml # Voids 2 3 # Bowel Movements 1 Laboratory Tests Test 06/13/17 04:50 06/13/17 10:15 White Blood Count 7.6 K/UL (4.8-10.8) Red Blood Count 3.37 M/UL (4.20-5.40) L Hemoglobin 10.2 G/DL (12.0-16.0) L Hematocrit 31.2 % (37.0-47.0) L Mean Corpuscular Volume 93 FL (80-99) Mean Corpuscular Hemoglobin 30.3 PG (27.0-31.0) Mean Corpuscular Hemoglobin Concent 32.7 G/DL (32.0-36.0) Red Cell Distribution Width 13.4 % (11.6-14.8) Platelet Count 176 K/UL (150-450) Mean Platelet Volume 6.8 FL (6.5-10.1) Neutrophils (%) (Auto) 66.7 % (45.0-75.0) Lymphocytes (%) (Auto) 18.9 % (20.0-45.0) L Monocytes (%) (Auto) 11.7 % (1.0-10.0) H Eosinophils (%) (Auto) 1.8 % (0.0-3.0) Basophils (%) (Auto) 0.8 % (0.0-2.0) Prothrombin Time 18.6 SEC (9.30-11.50) H Prothromb Time International Ratio 1.8 (0.9-1.1) H Activated Partial Thromboplast Time 37 SEC (23-33) H Sodium Level 145 MMOL/L (136-145) Potassium Level 3.9 MMOL/L (3.5-5.1) Chloride Level 109 MMOL/L (98-107) H Carbon Dioxide Level 29 MMOL/L (21-32) Anion Gap 7 mmol/L (5-15) Blood Urea Nitrogen 35 mg/dL (7-18) H Creatinine 1.1 MG/DL (0.55-1.30) Estimat Glomerular Filtration Rate mL/min (>60) Glucose Level 89 MG/DL (74-106) Calcium Level 8.8 MG/DL (8.5-10.1) Urine Color Pale yellow Urine Appearance Clear Urine pH 5 (4.5-8.0) Urine Specific [place] 1.010 (1.005-1.035) Urine Protein 1+ (NEGATIVE) H Urine Glucose (UA) Negative (NEGATIVE) Urine Ketones Negative (NEGATIVE) Urine Occult Blood 1+ (NEGATIVE) H Urine Nitrite Negative (NEGATIVE) Urine Bilirubin Negative (NEGATIVE) Urine Urobilinogen Normal MG/DL (0.0-1.0) Urine Leukocyte Esterase Negative (NEGATIVE) Urine RBC 0-2 /HPF (0 - 2) Urine WBC 0-2 /HPF (0 - 2) Urine Squamous Epithelial Cells Few /LPF (NONE/OCC) Urine Bacteria Occasional /HPF (NONE) Urine Random Sodium 18 mmol/L (20-110) L Stool Occult Blood Pending RICKY WAYNE Jun 13, 2017 19:10
[2017-06-13 19:40] VITALS: BP 125/45
[2017-06-13] MEDS ORDERED: Warfarin Sodium 2mg ORAL ONE (20:00)
[2017-06-13] MEDS ORDERED: Enoxaparin 60mg Inj SUBQ SCH (20:00)
--- NOTE | 2017-06-13 22:03 | Pulmonology Progress Note ---
Assessment/Plan Problems: (1) Supratherapeutic INR (2) Lower GI bleed (3) HTN (hypertension) (4) Major depression (5) Pacemaker (6) Aortic valve replaced Assessment/Plan INR better feeling better, check inr in am heart rate controlled med/surg dc planning soon Subjective ROS Limited/Unobtainable: No Allergies: Coded Allergies: No Known Allergies (Verified , 06/09/07) Objective Last 24 Hour Vital Signs Date Time Temp Pulse Resp B/P (MAP) Pulse Ox O2 Delivery O2 Flow Rate FiO2 06/13/17 20:38 97.5 06/13/17 19:40 97.5 66 20 125/45 96 Room Air 97.5 06/13/17 15:59 98.1 61 19 128/52 96 Room Air 98.1 06/13/17 12:05 98.1 60 18 116/45 96 Room Air 98.1 06/13/17 09:15 60 145/57 06/13/17 09:00 60 145/57 06/13/17 08:14 97.9 60 18 145/57 95 Room Air 97.9 06/13/17 04:19 Room Air 06/13/17 03:12 97.2 65 20 127/45 93 Room Air 97.2 06/13/17 00:20 Room Air 06/13/17 00:08 97.7 65 20 112/39 92 Room Air 97.7 Intake and Output 06/12/17 06/13/17 19:00 07:00 Intake Total 240 ml Balance 240 ml Intake Oral 240 ml # Voids 2 3 # Bowel Movements 1 Objective General Appearance: WD/WN Lines, tubes and drains: peripheral HEENT: normocephalic, atraumatic Neck: non-tender, normal alignment Respiratory/Chest: chest wall non-tender, lungs rhonchi Cardiovascular/Chest: normal peripheral pulses, normal rate Abdomen: normal bowel sounds, non tender Genitourinary/Rectal: normal genital exam, normal rectal exam Extremities: normal range of motion, non-tender Skin Exam: normal pigmentation Neurologic: seamer elastic band II-XII grossly normal Laboratory Tests 06/13/17 04:50: White Blood Count 7.6, Red Blood Count 3.37L, Hemoglobin 10.2L, Hematocrit 31.2L , Mean Corpuscular Volume 93, Mean Corpuscular Hemoglobin 30.3, Mean Corpuscular Hemoglobin Concent 32.7, Red Cell Distribution Width 13.4, Platelet Count 176, Mean Platelet Volume 6.8, Neutrophils (%) (Auto) 66.7, Lymphocytes (% ) (Auto) 18.9L, Monocytes (%) (Auto) 11.7H, Eosinophils (%) (Auto) 1.8, Basophils (%) (Auto) 0.8, Prothrombin Time 18.6H, Prothromb Time International Ratio 1.8H, Activated Partial Thromboplast Time 37H, Sodium Level 145, Potassium Level 3.9, Chloride Level 109H, Carbon Dioxide Level 29, Anion Gap 7, Blood Urea Nitrogen 35H, Creatinine 1.1, Estimat Glomerular Filtration Rate , Glucose Level 89, Calcium Level 8.8 06/13/17 10:15: Urine Color Pale yellow, Urine Appearance Clear, Urine pH 5, Urine Specific [place] 1.010, Urine Protein 1+H, Urine Glucose (UA) Negative, Urine Ketones Negative, Urine Occult Blood 1+H, Urine Nitrite Negative, Urine Bilirubin Negative, Urine Urobilinogen Normal, Urine Leukocyte Esterase Negative, Urine RBC 0-2, Urine WBC 0-2, Urine Squamous Epithelial Cells Few, Urine Bacteria Occasional, Urine Random Sodium 18L, Stool Occult Blood [Pending] Current Medications Medications (Trade) Dose Ordered Sig/Fredy Route PRN Reason Start Time Stop Time Status Last Admin Dose Admin Acetaminophen (Tylenol) 650 mg Q4H PRN ORAL Mild Pain/Temp > 100.5 06/12/17 17:30 07/11/17 05:29 06/13/17 20:38 Amlodipine Besylate (Norvasc) 5 mg DAILY ORAL 06/13/17 09:00 07/12/17 08:59 06/13/17 09:15 Dextrose (Dextrose 50%) STAT PRN IV Hypoglycemia 06/12/17 17:30 07/10/17 17:29 Enoxaparin Sodium (Lovenox) 60 mg QHS SUBQ 06/13/17 20:00 07/13/17 19:59 06/13/17 20:37 Escitalopram Oxalate (Lexapro) 10 mg DAILY ORAL 06/13/17 09:00 07/11/17 08:59 06/13/17 09:15 Furosemide (Lasix) 40 mg DAILY ORAL 06/13/17 09:00 07/12/17 08:59 06/13/17 09:16 Lorazepam (Ativan 2mg/ml 1ml) 0.5 mg Q4H PRN IV For Anxiety 06/12/17 16:30 06/17/17 16:29 Metoprolol Succinate (Toprol XL) 50 mg DAILY ORAL 06/13/17 09:00 07/11/17 08:59 Morphine Sulfate (Morphine Sulfate) 1 mg Q4H PRN IVP PAIN 4-10 06/12/17 16:30 06/17/17 16:29 Ondansetron HCl (Zofran) 4 mg Q6H PRN IVP Nausea & Vomiting 06/12/17 16:30 07/10/17 16:29 Pantoprazole (Protonix) 40 mg DAILY ORAL 06/13/17 09:00 07/12/17 08:59 06/13/17 09:16 Polyethylene Glycol (Miralax) 17 gm HSPRN PRN ORAL Constipation 06/12/17 21:00 07/10/17 20:59 Pravastatin Sodium (Pravachol) 80 mg BEDTIME ORAL 06/12/17 21:00 07/11/17 20:59 06/12/17 21:32 Zolpidem Tartrate (Ambien) 5 mg HSPRN PRN ORAL Insomnia 06/12/17 21:00 06/17/17 20:59 Lilly Veras MD Jun 13, 2017 22:03
[2017-06-14 00:08] VITALS: BP 104/34
[2017-06-14 06:34] LABS: ANION GAP 5 mmol/L (5-15); BLOOD UREA NITROGEN 30 mg/dL (7-18); CALCIUM 8.4 MG/DL (8.5-10.1); CARBON DIOXIDE 31 MMOL/L (21-32); CHLORIDE 108 MMOL/L (98-107); CREATININE 1.1 MG/DL (0.55-1.30); POTASSIUM 3.7 MMOL/L (3.5-5.1); SODIUM 144 MMOL/L (136-145)
[2017-06-14 06:43] LABS: BASOPHILS % (AUTO) 1.3 % (0.0-2.0); EOSINOPHILS % (AUTO) 0.7 % (0.0-3.0); HEMATOCRIT 30.5 % (37.0-47.0); HEMOGLOBIN 10.1 G/DL (12.0-16.0); LYMPHOCYTES % (AUTO) 18.3 % (20.0-45.0); MEAN CORPUSCULAR VOLUME 93 FL (80-99); MONOCYTES % (AUTO) 10.7 % (1.0-10.0); NEUTROPHILS % (AUTO) 69.1 % (45.0-75.0); PLATELET COUNT 176 K/UL (150-450); RED BLOOD COUNT 3.29 M/UL (4.20-5.40); RED CELL DISTRIBUTION WIDTH 13.3 % (11.6-14.8); WHITE BLOOD COUNT 8.4 K/UL (4.8-10.8)
[2017-06-14 07:00] LABS: INR 1.4 (0.9-1.1)
[2017-06-14 08:09] VITALS: BP 141/52
[2017-06-14] MEDS: Furosemide 40mg tab ORAL SCH (08:56)
[2017-06-14] MEDS: Metoprolol Succinate XL 50mg tab ORAL SCH (08:56)
[2017-06-14 11:31] VITALS: BP 128/58
--- NOTE | 2017-06-14 12:27 | Nephrology Progress Note ---
Assessment/Plan Problem List: (1) Supratherapeutic INR (2) Renal insufficiency (3) Pacemaker (4) Atrial fibrillation Assessment Presented with Cr 1.7 , now Cr lower- Acute renal failure likely dehydration other conditions: - Coagulopathy, presumed to be secondary to Coumadin possible, INR down 1.4 interaction with other medications. - Aortic valve replacement previously for aortic stenosis. - Atrial fibrillation, permanent. - Sick sinus syndrome status post permanent pacemaker implantation. - Recent fall and injury with lumbar spine compression fracture status post kyphoplasty. History of previous multiple falls. - Reported history of coronary artery disease. - History of pleural effusion. - Moderate to severe mitral stenosis. - Anemia - HTN - Depression Plan Anemia workup- UA U Na 18 Monitor renal parameters Subjective ROS Limited/Unobtainable: No Constitutional: Reports: malaise Objective Objective Last 24 Hour Vital Signs Date Time Temp Pulse Resp B/P (MAP) Pulse Ox O2 Delivery O2 Flow Rate FiO2 06/14/17 11:31 98.2 62 20 128/58 97 98.2 06/14/17 08:56 66 141/52 06/14/17 08:56 66 141/52 06/14/17 08:09 98.1 66 19 141/52 96 98.1 06/14/17 00:08 97.9 63 20 104/34 94 97.9 06/13/17 21:37 97.5 06/13/17 20:38 97.5 06/13/17 19:40 97.5 66 20 125/45 96 Room Air 97.5 06/13/17 15:59 98.1 61 19 128/52 96 Room Air 98.1 Intake and Output 06/13/17 06/14/17 19:00 07:00 Intake Total 240 ml 360 ml Balance 240 ml 360 ml Intake Oral 240 ml 360 ml # Voids 2 2 # Bowel Movements 1 Laboratory Tests 06/14/17 05:00: White Blood Count 8.4, Red Blood Count 3.29L, Hemoglobin 10.1L, Hematocrit 30.5L , Mean Corpuscular Volume 93, Mean Corpuscular Hemoglobin 30.5, Mean Corpuscular Hemoglobin Concent 33.0, Red Cell Distribution Width 13.3, Platelet Count 176, Mean Platelet Volume 6.6, Neutrophils (%) (Auto) 69.1, Lymphocytes (% ) (Auto) 18.3L, Monocytes (%) (Auto) 10.7H, Eosinophils (%) (Auto) 0.7, Basophils (%) (Auto) 1.3, Prothrombin Time 14.9H, Prothromb Time International Ratio 1.4H, Activated Partial Thromboplast Time 37H, Sodium Level 144, Potassium Level 3.7, Chloride Level 108H, Carbon Dioxide Level 31, Anion Gap 5, Blood Urea Nitrogen 30H, Creatinine 1.1, Estimat Glomerular Filtration Rate , Glucose Level 89, Calcium Level 8.4L Height (Feet): 5 Height (Inches): 3.00 Weight (Pounds): 116 General Appearance: no apparent distress Objective no change KAYLA EVERETT Jun 14, 2017 12:27
[2017-06-14] MEDS ORDERED: D5 1/2NS 1000ml IV ONE (12:29)
--- NOTE | 2017-06-14 12:56 | GI Progress Note ---
Assessment/Plan Problems: (1) Supratherapeutic INR ICD Codes: R79.1 - Abnormal coagulation profile SNOMED: 608611845 (2) Abdominal pain (3) Lower GI bleed ICD Codes: K92.2 - Gastrointestinal hemorrhage, unspecified SNOMED: 65705031 Status: stable Status Narrative Discussed with Dr. Tucker. Assessment/Plan defer GI procedures, stable H&H >> LGIB most likely from hypercoagulation 2/2 warfarin correct supratherapeutic INR monitor H&H, prn transfusions OB stool x 3 regular diet ppi fu labs, coags dc planning The patient was seen and examined at bedside and all new and available data was reviewed in the patients chart. I agree with the above findings, impression and plan. (Patient seen earlier today. Signature stamp does not reflect patient encounter time.). - Lilliam Tucker MD Subjective Subjective no symptoms ambulating had BM, no noted blood Objective Last 24 Hour Vital Signs Date Time Temp Pulse Resp B/P (MAP) Pulse Ox O2 Delivery O2 Flow Rate FiO2 06/14/17 11:31 98.2 62 20 128/58 97 98.2 06/14/17 08:56 66 141/52 06/14/17 08:56 66 141/52 06/14/17 08:09 98.1 66 19 141/52 96 98.1 06/14/17 00:08 97.9 63 20 104/34 94 97.9 06/13/17 21:37 97.5 06/13/17 20:38 97.5 06/13/17 19:40 97.5 66 20 125/45 96 Room Air 97.5 06/13/17 15:59 98.1 61 19 128/52 96 Room Air 98.1 Intake and Output 06/13/17 06/14/17 19:00 07:00 Intake Total 240 ml 360 ml Balance 240 ml 360 ml Intake Oral 240 ml 360 ml # Voids 2 2 # Bowel Movements 1 Laboratory Tests Test 06/14/17 05:00 White Blood Count 8.4 K/UL (4.8-10.8) Red Blood Count 3.29 M/UL (4.20-5.40) L Hemoglobin 10.1 G/DL (12.0-16.0) L Hematocrit 30.5 % (37.0-47.0) L Mean Corpuscular Volume 93 FL (80-99) Mean Corpuscular Hemoglobin 30.5 PG (27.0-31.0) Mean Corpuscular Hemoglobin Concent 33.0 G/DL (32.0-36.0) Red Cell Distribution Width 13.3 % (11.6-14.8) Platelet Count 176 K/UL (150-450) Mean Platelet Volume 6.6 FL (6.5-10.1) Neutrophils (%) (Auto) 69.1 % (45.0-75.0) Lymphocytes (%) (Auto) 18.3 % (20.0-45.0) L Monocytes (%) (Auto) 10.7 % (1.0-10.0) H Eosinophils (%) (Auto) 0.7 % (0.0-3.0) Basophils (%) (Auto) 1.3 % (0.0-2.0) Prothrombin Time 14.9 SEC (9.30-11.50) H Prothromb Time International Ratio 1.4 (0.9-1.1) H Activated Partial Thromboplast Time 37 SEC (23-33) H Sodium Level 144 MMOL/L (136-145) Potassium Level 3.7 MMOL/L (3.5-5.1) Chloride Level 108 MMOL/L (98-107) H Carbon Dioxide Level 31 MMOL/L (21-32) Anion Gap 5 mmol/L (5-15) Blood Urea Nitrogen 30 mg/dL (7-18) H Creatinine 1.1 MG/DL (0.55-1.30) Estimat Glomerular Filtration Rate mL/min (>60) Glucose Level 89 MG/DL (74-106) Calcium Level 8.4 MG/DL (8.5-10.1) L Height (Feet): 5 Height (Inches): 3.00 Weight (Pounds): 116 General Appearance: WD/WN, no apparent distress, alert Cardiovascular: normal rate Respiratory/Chest: normal breath sounds, no respiratory distress Abdominal Exam: normal bowel sounds, non tender, soft Extremities: normal range of motion, non-tender Analy Nicholson N.PRadha Jun 14, 2017 12:56 TEMO TUCKER Jun 21, 2017 09:05
--- NOTE | 2017-06-14 13:16 | General Progress Note ---
Assessment/Plan Assessment/Plan 1. Extreme coagulopathy possibly secondary to stenosis, --> due to Coumadin overdose in addition to medication interaction. --> Coumadin has been discontinued at this time. --> INR has downtrended. 2. Lower extremity deep venous thrombosis. --> No DVT notes 3. Coagulopathy, the patient on Xarelto. Monitor closely. 4. Aortic valve replacement for aortic stenosis 5. Sick sinus syndrome, status post pacemaker implantation. 6. Previous fall history. 7. History of coronary artery disease. 8. History of pleural effusion. 9. Moderate to severe mitral stenosis. Subjective Date patient seen: Jun 13, 2017 Constitutional: Denies: no symptoms, chills, diaphoresis, fever, malaise, weakness, other HEENT: Denies: no symptoms, eye pain, blurred vision, tearing, double vision, ear pain, ear discharge, nose pain, nose congestion, throat pain, throat swelling, mouth pain, mouth swelling, other Cardiovascular: Denies: no symptoms, chest pain, edema, irregular heart rate, lightheadedness, palpitations, syncope, other Respiratory: Denies: no symptoms, cough, orthopnea, shortness of breath, SOB with excertion, SOB at rest, sputum, stridor, wheezing, other Gastrointestinal/Abdominal: Denies: no symptoms, abdomen distended, abdominal pain, black stools, tarry stools, blood in stool, constipated, diarrhea, difficulty swallowing, nausea, poor appetite, poor fluid intake, rectal bleeding , vomiting, other Genitourinary: Denies: no symptoms, burning, discharge, frequency, flank pain, hematuria, incontinence, pain, urgency, other Neurologic/Psychiatric: Denies: no symptoms, anxiety, depressed, emotional problems, headache, numbness, paresthesia, pre-existing deficit, seizure, tingling, tremors, weakness, other Allergies: Coded Allergies: No Known Allergies (Verified , 06/09/07) Subjective DC coumadin. Resting in bed. No new events. Objective Last 24 Hour Vital Signs Date Time Temp Pulse Resp B/P (MAP) Pulse Ox O2 Delivery O2 Flow Rate FiO2 06/14/17 11:31 98.2 62 20 128/58 97 98.2 06/14/17 08:56 66 141/52 06/14/17 08:56 66 141/52 06/14/17 08:09 98.1 66 19 141/52 96 98.1 06/14/17 00:08 97.9 63 20 104/34 94 97.9 06/13/17 21:37 97.5 06/13/17 20:38 97.5 06/13/17 19:40 97.5 66 20 125/45 96 Room Air 97.5 06/13/17 15:59 98.1 61 19 128/52 96 Room Air 98.1 Intake and Output 06/13/17 06/14/17 19:00 07:00 Intake Total 240 ml 360 ml Balance 240 ml 360 ml Intake Oral 240 ml 360 ml # Voids 2 2 # Bowel Movements 1 Laboratory Tests 06/14/17 05:00: White Blood Count 8.4, Red Blood Count 3.29L, Hemoglobin 10.1L, Hematocrit 30.5L , Mean Corpuscular Volume 93, Mean Corpuscular Hemoglobin 30.5, Mean Corpuscular Hemoglobin Concent 33.0, Red Cell Distribution Width 13.3, Platelet Count 176, Mean Platelet Volume 6.6, Neutrophils (%) (Auto) 69.1, Lymphocytes (% ) (Auto) 18.3L, Monocytes (%) (Auto) 10.7H, Eosinophils (%) (Auto) 0.7, Basophils (%) (Auto) 1.3, Prothrombin Time 14.9H, Prothromb Time International Ratio 1.4H, Activated Partial Thromboplast Time 37H, Sodium Level 144, Potassium Level 3.7, Chloride Level 108H, Carbon Dioxide Level 31, Anion Gap 5, Blood Urea Nitrogen 30H, Creatinine 1.1, Estimat Glomerular Filtration Rate , Glucose Level 89, Calcium Level 8.4L Height (Feet): 5 Height (Inches): 3.00 Weight (Pounds): 116 Stoney Lin MD Jun 14, 2017 13:15
--- NOTE | 2017-06-14 16:11 | Discharge Summary ---
Discharge Summary Hospital Course Date of Admission Jun 10, 2017 at 18:52 Date of Discharge Jun 14, 2017 at 12:30 Admitting Diagnosis supratherapeutic INR HPI Hans Kurtz is a 87 year old female who was admitted on Jun 10, 2017 at 18: 52 for Supratherapeutic Inr Hospital Course Discharge Discharge Disposition Patient was discharged to Home with Home Health(06) Discharge Diagnoses: Yandel Haines MD Jun 14, 2017 16:10
--- NOTE | 2017-06-14 16:33 | Pulmonology Progress Note ---
Assessment/Plan Problems: (1) Supratherapeutic INR (2) Lower GI bleed (3) HTN (hypertension) (4) Major depression (5) Pacemaker (6) Aortic valve replaced Assessment/Plan INR better feeling better, alll reviewed check inr in am heart rate controlled med/surg dc planning for today Subjective ROS Limited/Unobtainable: No Constitutional: Reports: no symptoms HEENT: Repors: no symptoms Respiratory: Reports: no symptoms Allergies: Coded Allergies: No Known Allergies (Verified , 06/09/07) Objective Last 24 Hour Vital Signs Date Time Temp Pulse Resp B/P (MAP) Pulse Ox O2 Delivery O2 Flow Rate FiO2 06/14/17 11:31 98.2 62 20 128/58 97 98.2 06/14/17 08:56 66 141/52 06/14/17 08:56 66 141/52 06/14/17 08:09 98.1 66 19 141/52 96 98.1 06/14/17 00:08 97.9 63 20 104/34 94 97.9 06/13/17 21:37 97.5 06/13/17 20:38 97.5 06/13/17 19:40 97.5 66 20 125/45 96 Room Air 97.5 Intake and Output 06/13/17 06/14/17 19:00 07:00 Intake Total 240 ml 360 ml Balance 240 ml 360 ml Intake Oral 240 ml 360 ml # Voids 2 2 # Bowel Movements 1 Objective General Appearance: WD/WN Lines, tubes and drains: peripheral HEENT: normocephalic, atraumatic Neck: non-tender, normal alignment Respiratory/Chest: chest wall non-tender, lungs rhonchi Cardiovascular/Chest: normal peripheral pulses, normal rate Abdomen: normal bowel sounds, non tender Genitourinary/Rectal: normal genital exam, normal rectal exam Extremities: normal range of motion, non-tender Skin Exam: normal pigmentation Neurologic: filter press tender II-XII grossly normal Laboratory Tests 06/14/17 05:00: White Blood Count 8.4, Red Blood Count 3.29L, Hemoglobin 10.1L, Hematocrit 30.5L , Mean Corpuscular Volume 93, Mean Corpuscular Hemoglobin 30.5, Mean Corpuscular Hemoglobin Concent 33.0, Red Cell Distribution Width 13.3, Platelet Count 176, Mean Platelet Volume 6.6, Neutrophils (%) (Auto) 69.1, Lymphocytes (% ) (Auto) 18.3L, Monocytes (%) (Auto) 10.7H, Eosinophils (%) (Auto) 0.7, Basophils (%) (Auto) 1.3, Prothrombin Time 14.9H, Prothromb Time International Ratio 1.4H, Activated Partial Thromboplast Time 37H, Sodium Level 144, Potassium Level 3.7, Chloride Level 108H, Carbon Dioxide Level 31, Anion Gap 5, Blood Urea Nitrogen 30H, Creatinine 1.1, Estimat Glomerular Filtration Rate , Glucose Level 89, Calcium Level 8.4L Lilly Veras MD Jun 14, 2017 16:33
--- NOTE | 2017-06-15 02:30 | Discharge Summary ---
DATE OF ADMISSION: 06/10/2017 DATE OF DISCHARGE: 06/14/2017 BRIEF HISTORY: This is an 87-year-old very delightful [place] female with past medical history significant for hypertension, congestive heart failure, pleural effusion, history of compression fracture of spine, status post recent kyphoplasty, and paroxysmal atrial fibrillation, who was presented to the hospital complaining about abnormal INR. The patient was noted to have INR of 10. HOSPITAL COURSE: Throughout the hospital course, the patient was followed by Dr. Shay Doran from Cardiology, Dr. Tucker from Gastroenterology, and Dr. Lin from Hematology. The patient was treated for the Coumadin for the aortic valve replacement due to the aortic stenosis and atrial fibrillation, sick sinus syndrome, status post pacemaker. The patient's status improved and INR became more therapeutic with INR of 1.4 and subsequently, the patient was discharged home today to be followed by as an outpatient. FINAL DIAGNOSES: 1. Supratherapeutic INR level with coagulopathy. 2. Aortic valve replacement due to the aortic stenosis. 3. Chronic atrial fibrillation. 4. Sick sinus syndrome, status post pacemaker. 5. History of recent fall with lumbar spine compression fracture, status post kyphoplasty. 6. Previous multiple falls. 7. History of coronary artery disease. 8. Pleural effusion. 9. [id number] mitral regurgitation. 10. Pulmonary hypertension. MEDICATION ON DISCHARGE: Continue discharge medication list. ACTIVITY: As tolerated. DIET: Cardiac diet. FOLLOWUP: The patient will be discharged to follow up with Dr. Little as an outpatient. Yandel Haines M.D. DR: AMBROSE JOB#: [id number] CC:
--- NOTE | 2017-06-15 12:33 | General Progress Note ---
Assessment/Plan Assessment/Plan 1. Extreme coagulopathy possibly secondary to stenosis, --> due to Coumadin overdose in addition to medication interaction. --> Coumadin has been discontinued at this time. --> INR has downtrended and improved. 2. Lower extremity deep venous thrombosis. --> No DVT notes 3. Coagulopathy, the patient on Xarelto. Monitor closely. 4. Aortic valve replacement for aortic stenosis 5. Sick sinus syndrome, status post pacemaker implantation. 6. Previous fall history. 7. History of coronary artery disease. 8. History of pleural effusion. 9. Moderate to severe mitral stenosis. Subjective Date patient seen: Jun 14, 2017 Constitutional: Denies: no symptoms, chills, diaphoresis, fever, malaise, weakness, other HEENT: Denies: no symptoms, eye pain, blurred vision, tearing, double vision, ear pain, ear discharge, nose pain, nose congestion, throat pain, throat swelling, mouth pain, mouth swelling, other Cardiovascular: Denies: no symptoms, chest pain, edema, irregular heart rate, lightheadedness, palpitations, syncope, other Respiratory: Denies: no symptoms, cough, orthopnea, shortness of breath, SOB with excertion, SOB at rest, sputum, stridor, wheezing, other Gastrointestinal/Abdominal: Denies: no symptoms, abdomen distended, abdominal pain, black stools, tarry stools, blood in stool, constipated, diarrhea, difficulty swallowing, nausea, poor appetite, poor fluid intake, rectal bleeding , vomiting, other Genitourinary: Denies: no symptoms, burning, discharge, frequency, flank pain, hematuria, incontinence, pain, urgency, other Neurologic/Psychiatric: Denies: no symptoms, anxiety, depressed, emotional problems, headache, numbness, paresthesia, pre-existing deficit, seizure, tingling, tremors, weakness, other Allergies: Coded Allergies: No Known Allergies (Verified , 06/09/07) Subjective NAD. No fever or chills. Pending DC Objective Intake and Output 06/14/17 06/15/17 19:00 07:00 Intake Total 120 ml Balance 120 ml Intake Oral 120 ml Height (Feet): 5 Height (Inches): 3.00 Weight (Pounds): 116 General Appearance: no apparent distress Respiratory/Chest: lungs clear Abdomen: soft Stoney Lin MD Jun 15, 2017 12:33
== END 2017-06-14 12:30 | disposition home or self-care (01) | DRG 378 ==
LOC: EMR 18:50 → EDBD 18:52 → 2E 18:52 → EDBEDREQ 21:41 → 2E 06-11 00:01 → 4W 06-12 16:12
DX: K92.2 Gastrointestinal hemorrhage, unspecified (principal); N17.9 Acute kidney failure, unspecified; I27.20 Pulmonary hypertension, unspecified; I11.0 Hypertensive heart disease with heart failure; I48.2 Chronic atrial fibrillation; E86.0 Dehydration; J44.9 Chronic obstructive pulmonary disease, unspecified; D64.9 Anemia, unspecified; F32.9 Major depressive disorder, single episode, unspecified; E78.5 Hyperlipidemia, unspecified; T45.515A Adverse effect of anticoagulants, initial encounter; I25.10 Atherosclerotic heart disease of native coronary artery without angina pectoris; I34.2 Nonrheumatic mitral (valve) stenosis; I34.0 Nonrheumatic mitral (valve) insufficiency; R79.1 Abnormal coagulation profile; Z91.81 History of falling; Z95.0 Presence of cardiac pacemaker; Z95.2 Presence of prosthetic heart valve; Z79.01 Long term (current) use of anticoagulants
CPT/HCPCS: 36415; 70450; 71045; 80048; 80053; 80061; 81001; 82270; 82550; 82607; 82728; 82746; 82977; 83036; 83540; 83550; 83735; 84100; 84300; 84443; 84550; 85025; 85610; 85730; 86140; 86850; 86900; 86901; 93005; 93306; 93970; 99285